=== PATIENT | male | born 1940 | race Caucasian/White ===

== ENCOUNTER 2016-12-01 09:26 | Emergency (ER) | payer MEDICARE, OTHER ==
--- NOTE | 2016-12-01 10:02 | ERPHSYRPT ---
- History of Present Illness Time Seen by Provider: 12/01/16 09:53 Source: patient Exam Limitations: no limitations Patient Subjective Stated Complaint: cough Triage Nursing Assessment: cough for days. finished zpak yesterday and went to dr for the second time yesterday and 'got a shot and switched to levaquin' hasnt taken levaquin today or done neb today. nonproductive cough. fever at home (but doesnt know what). lungs diminished. barky tight cough noted. white nasal drainage Physician History: This is a 75-year-old white male he arrives with complaint of continuing cough and really not short of breath with fevers at home however he doesn't know how high his fevers and began he states that he has been to his family doctor in finished a Z-[place] yesterday he was given an injection yesterday eyes family doctor he had an x-ray of his chest yesterday and 4 days ago which showed chronic eventration of the right hemidiaphragm with some atelectasis versus infiltrate surrounding it. He states that he feels like he is sweating today he has no chest pain he is not short of breath at this time. Patient does state that he was switched to Levaquin yesterday by his family doctor he states he has not begun this medication yet. Patient further states that he has a nebulizer at home he has been using this. Past medical history includes diabetes, hypercholesterolemia, high blood pressure. Past surgical history includes cholecystectomy hemorrhoidectomy, hernia repair, prostate surgery, tumors removed from his back Timing/Duration: day(s) (5 days) Severity: moderate Modifying Factors: Improves With: nothing Associated Symptoms: cough, fever, No nausea, No vomiting, No abdominal pain, No shortness of breath, No heartburn, No diaphoresis, No chills, No chest pain, No headaches, No loss of appetite, No malaise, No rash, No syncope, No seizure, No weakness Allergies/Adverse Reactions: No Known Drug Allergies Allergy (Unverified 12/01/16 09:45) Home Medications: Fenofibrate 160 mg PO DAILY 12/01/16 [History] Finasteride 5 mg [Proscar 5 MG] 5 mg PO DAILY 12/01/16 [History] Levofloxacin [Levaquin] 500 mg PO DAILY 12/01/16 [History] Lisinopril 5 mg [Zestril 5 MG] 5 mg PO DAILY 12/01/16 [History] Metformin HCl 500 mg [Glucophage 500 MG] 500 mg PO BID 12/01/16 [History] Nebivolol HCl [Bystolic] 5 mg PO DAILY 12/01/16 [History] Aldie-3 Fatty Acids/Fish Oil [Fish Oil 1,000 mg Softgel] 1 each PO DAILY [History] Hx Tetanus, Diphtheria Vaccination/Date Given: Yes Hx Influenza Vaccination/Date Given: Yes Hx Pneumococcal Vaccination/Date Given: Yes Immunizations Up to Date: Yes - Review of Systems Constitutional: Fever, No Chills, No Fatigue, No Lethargy, No Malaise, No Night Sweats, No Weakness, No Weight Loss Eyes: No Symptoms Ears, Nose, & Throat: No Symptoms Respiratory: Cough, Other, No Cyanosis, No Dyspnea, No Dyspnea on Exertion (SINGH) , No Stridor, No Wheezing Cardiac: No Chest Pain, No Edema, No Syncope Abdominal/Gastrointestinal: No Abdominal Pain, No Nausea, No Vomiting, No Diarrhea Genitourinary Symptoms: No Dysuria Musculoskeletal: No Back Pain, No Neck Pain Skin: No Rash Neurological: No Dizziness, No Focal Weakness, No Sensory Changes Psychological: No Symptoms Endocrine: No Symptoms All Other Systems: Reviewed and Negative - Past Medical History Pertinent Past Medical History: Yes Cardiac History: High Cholesterol, Hypertension Endocrine Medical History: Diabetes Type I - Past Surgical History Past Surgical History: Yes Gastrointestinal: Cholecystectomy, Hemorrhoidectomy, Hernia Repair Male Surgical History: Prostate Surgery Other Surgical History: tumors removed from back - Social History Smoking Status: Never smoker Exposure to second hand smoke: No Drug Use: none Patient Lives Alone: No - Nursing Vital Signs Nursing Vital Signs: Initial Vital Signs Temperature 97.8 F Temperature Source Oral Pulse Rate 79 Respiratory Rate 18 Blood Pressure [] 152/93 Pain Intensity 0 - Physical Exam General Appearance: no apparent distress, alert Eye Exam: PERRL/EOMI, eyes nml inspection Ears, Nose, Throat Exam: normal ENT inspection, TMs normal, pharynx normal, moist mucous membranes Neck Exam: normal inspection, non-tender, supple, full range of motion Respiratory Exam: other (patient with a few faint scattered wheezes otherwise clear) Cardiovascular Exam: regular rate/rhythm, normal heart sounds, normal peripheral pulses Gastrointestinal/Abdomen Exam: soft, normal bowel sounds, No tenderness, No mass Back Exam: normal inspection, normal range of motion, No CVA tenderness, No vertebral tenderness Extremity Exam: normal inspection, normal range of motion, pelvis stable Neurologic Exam: alert, oriented x 3, cooperative, normal mood/affect, nml cerebellar function, nml station & gait, sensation nml, No motor deficits Skin Exam: normal color, warm, dry, No rash Lymphatic Exam: No adenopathy SpO2 Interpretation: normal (96%) SpO2: 96 Oxygen Delivery: Room Air - Course Nursing assessment & vital signs reviewed: Yes EKG Interpreted by Me: RATE (72 bpm), Sinus Rhythm, NORMAL AXIS, Other (EKG, sinus rhythm, 72 beats per minute, RSR prime in leads 3 and aVF, normal axis, no acute ST or T wave changes noted, no old EKG for comparison) - Radiology Exams Chest X-ray Interpretation: Discussed w/ radiologist (chest x-ray: Portable chest unchanged again, hyperinflated with focal eventration of the right hemidiaphragm and adjacent atelectasis. Remaining lungs clear heart is not enlarged. No new/acute findings.) Ordered Tests: Active Orders 24 hr Category Date Time Status EKG-ER Only STAT Care 12/01/16 09:57 Active IV Insertion STAT Care 12/01/16 09:57 Active CHEST 1 VIEW (PORTABLE) Stat Exams 12/01/16 09:57 Completed CBC W DIFF Stat Lab 12/01/16 10:15 Completed CMP Stat Lab 12/01/16 10:15 Completed Manual Differential NC Stat Lab 12/01/16 10:15 Completed NT PRO BNP Stat Lab 12/01/16 10:15 Completed TROPONIN Stat Lab 12/01/16 10:15 Completed Respiratory Nebulizer STAT RT 12/01/16 11:05 Active Medication Summary Generic Name Dose Route Start Last Admin Trade Name Freq PRN Reason Stop Dose Admin Ceftriaxone Sodium/Dextrose 50 mls @ 100 mls/hr 12/01/16 11:05 Rocephin 1 Gm-D5w 50 Ml Bag IV 12/01/16 11:34 STAT ONE Discontinued Medications Generic Name Dose Route Start Last Admin Trade Name Freq PRN Reason Stop Dose Admin Albuterol/Ipratropium 3 ml 12/01/16 11:04 Duoneb 0.5-3 Mg/3 Ml Neb IH 12/01/16 11:05 STAT ONE Methylprednisolone Sodium Succinate 125 mg 12/01/16 11:04 Solu-Medrol 125 Mg IV 12/01/16 11:05 STAT ONE Lab/Rad Data: Laboratory Result Diagrams 12/01/16 10:15 12/01/16 10:15 Laboratory Results 12/01/16 12/01/16 Range/Units 10:15 10:15 WBC 7.7 (4.0-10.5) K/mm3 RBC 4.37 (4.1-5.6) M/mm3 Hgb 12.6 (12.5-18.0) gm/dl Hct 39.6 L (42-50) % MCV 90.6 (78-100) fl MCH 28.8 (26-32) pg MCHC 31.8 L (32-36) g/dl RDW 14.2 H (11.5-14.0) % Plt Count 223 (150-450) K/mm3 MPV 8.7 (6-9.5) fl Segmented Neutrophils 65 (36.-66.) % Lymphocytes (Manual) 22 L (24-44) % Monocytes (Manual) 11 (0.0-12.0) % Basophils (Manual) 1 (0.0-1.0) % Nucleated RBCs 2 % Differential Comment ABNORMAL Atypical Lymphocytes 1 % Platelet Estimate NORMAL (NORMAL) Basophilic Stippling RARE Anisocytosis 1+ Sodium 145 (136-145) mEq/L Potassium 4.0 (3.5-5.1) mEq/L Chloride 104 (98-107) mEq/L Carbon Dioxide 31.3 (21-32) mEq/L Anion Gap 13.6 (5-15) MEQ/L BUN 27 H (9-20) mg/dL Creatinine 0.92 (0.55-1.30) mg/dl Estimated GFR > 60 ML/MIN Glucose 136 H (70-110) MG/DL Calcium 9.8 (8.5-10.1) mg/dL Total Bilirubin 0.2 (0.2-1.0) mg/dL AST 17 (15-37) U/L ALT 27 (12-78) U/L Alkaline Phosphatase 39 L (46-116) U/L Troponin I 0.017 (0.000-0.056) ng/ml NT-Pro-B Natriuret Pep 469 H (0-450) pg/ml Serum Total Protein 7.0 (6.4-8.2) gm/dL Albumin 3.2 L (3.4-5.0) g/dL - Progress Progress: improved Progress Note: 12/01/16 11:06 Patient appears to be stable. Chest x-ray no acute changes he has hyperinflation with focal eventration of the right hemidiaphragm and adjacent atelectasis which is unchanged EKG no acute changes troponin normal BNP slightly elevated at 469 remainder of labs essentially normal. Will give patient a DuoNeb treatment give him Rocephin 1 g IV Solu-Medrol 125 IV. Anticipate discharge with continued nebulizer treatments, patient to take his Levaquin as prescribed by his family doctor and consider tapering dose of prednisone. - Departure Time of Disposition: 11:19 Departure Disposition: Home Clinical Impression: Bronchitis with bronchospasm Condition: Fair Critical Care Time: No Additional Instructions: Return home. Take Levaquin as prescribed by your family doctor. Use your albuterol inhaler as directed by your family doctor. Prednisone 20 mg 2 orally daily for 3 days then one orally daily for 4 days. Follow-up with your family doctor return for acute distress or for severe symptoms
[2016-12-01 10:21] LABS: Mean Cell Volume 90.6 fl (78-100); Mean Corpuscular Hemoglobin 28.8 pg (26-32); Mean Platelet Volume 8.7 fl (6-9.5); Platelet Count 223 K/mm3 (150-450); Red Blood Count 4.37 M/mm3 (4.1-5.6); Red Cell Distribution Width 14.2 % (11.5-14.0); White Blood Count 7.7 K/mm3 (4.0-10.5)
--- NOTE | 2016-12-01 10:29 | XRAY ---
Indication: Cough. Comparison: November 27 and November 30, 2016. Portable chest unchanged again hyperinflated with focal eventration of the right hemidiaphragm and adjacent atelectasis. Remaining lungs clear. Heart is not enlarged. No new/acute findings.
[2016-12-01 10:51] LABS: ANISOCYTOSIS 1+; ATYPICAL LYMPHS 1 %; Basophil 1 % (0.0-1.0); Nucleated Red Blood Cell 2 %; Platelet Estimate NORMAL (NORMAL); Total Cells Counted 100
[2016-12-01 10:52] LABS: Basophilic Stippling RARE
[2016-12-01 10:57] LABS: ALBUMIN 3.2 g/dL (3.4-5.0); ALKALINE PHOSPHATASE 39 U/L (46-116); ANION GAP 13.6 MEQ/L (5-15); BILIRUBIN,TOTAL 0.2 mg/dL (0.2-1.0); BLOOD UREA NITROGEN 27 mg/dL (9-20); CHLORIDE 104 mEq/L (98-107); Carbon Dioxide 31.3 mEq/L (21-32); Glucose 136 MG/DL (70-110); SGOT/AST 17 U/L (15-37); SGPT/ALT 27 U/L (12-78); SODIUM 145 mEq/L (136-145); TROPONIN 0.017 ng/ml (0.000-0.056)
[2016-12-01] MEDS ORDERED: DUONEB 0.5-3 MG/3 ml Neb IH ONE ×2 (11:04→11:30)
[2016-12-01] MEDS ORDERED: solu-MEDROL 125 MG IV ONE (11:04)
[2016-12-01] MEDS ORDERED: ROCEPHIN 1 Gm-D5w 50 ml Bag** 50 ML IV ONE ×2 (11:05→11:18)
[2016-12-01] MEDS ORDERED: solu-MEDROL 125 MG ONE (11:18)
[2016-12-01 11:50] VITALS: BP 137/70; PULSE 79; O2SAT 99
== END 2016-12-01 11:49 | disposition home or self-care (01) ==
LOC: ED 09:26
DX: J20.9 Acute bronchitis, unspecified (principal); R05 Cough; E11.9 Type 2 diabetes mellitus without complications; E78.00 Pure hypercholesterolemia, unspecified; I10 Essential (primary) hypertension; Z79.84 Long term (current) use of oral hypoglycemic drugs; Z79.899 Other long term (current) drug therapy
CPT/HCPCS: 36000; 36415; 71010; 80053; 83880; 84484; 85025; 93005; 94640; 96365; 96374; 99284; J0696; J2930; A9270-GY

== ENCOUNTER 2017-01-23 07:32 | Day surgery (SDC) | payer MEDICARE, OTHER ==
[2017-01-23] MEDS ORDERED: Lactated Ringers 1,000 ML IV ONE ×2 (07:57→11:05)
[2017-01-23] MEDS ORDERED: DIPRIVAN 200 MG/20 ML IV ONE (09:00)
[2017-01-23] MEDS ORDERED: LIDOCAINE HCL 1% AMPUL 5 ML IJ ONE (09:30)
[2017-01-23] MEDS ORDERED: Epinephrine Preservative Free 1 MG/ML INTRAOP ONE (09:30)
[2017-01-23] MEDS ORDERED: BETADINE 5% OPHTHALMIC 30 ML OP ONE (09:30)
[2017-01-23] MEDS ORDERED: BSS 500 ML, Fortaz/Tazicef 1 GM** 0.2 G IO ONE ×2 (09:30)
[2017-01-23] MEDS ORDERED: MANNITOL IV ONE ×2 (10:00→10:15)
[2017-01-23] MEDS ORDERED: BROMFENAC SODIUM 0.09% OP ONE (10:15)
[2017-01-23] MEDS ORDERED: GATIFLOXACIN 0.5% OP ONE (10:15)
[2017-01-23] MEDS ORDERED: PRED-FORTE 1% OPHTHALMIC OP ONE (10:15)
[2017-01-23] MEDS ORDERED: PILOCARPINE 2% OP ONE (10:15)
[2017-01-23] MEDS ORDERED: Lactated Ringers 1,000 ML IV SCH (11:00)
[2017-01-23] MEDS ORDERED: Zofran 4 MG/2 ML VIAL IV PRN (11:00)
[2017-01-23] MEDS ORDERED: ACETAZOLAMIDE 250 MG TABLET PO ONE (11:00)
[2017-01-23] MEDS ORDERED: TETRACAINE 0.5% STERI-UNIT SOL OP ONE ×2 (11:00)
[2017-01-23] MEDS ORDERED: Ak-Dilate OPHTHALMIC*** 0.71 ML, Cyclogyl 1% OPHTH SOL 5 ML 0.71 ML, GATIFLOXACIN 0.5% ... OP ONE ×4 (11:00)
[2017-01-23] MEDS ORDERED: DEMEROL 50 MG IM ONE (12:30)
[2017-01-23] MEDS ORDERED: DEMEROL 50 MG ONE (12:31)
[2017-01-23] MEDS ORDERED: TRIMOXI 0.6 ML OPHTH INJECTION OP ONE (13:45)
[2017-01-23] MEDS ORDERED: Bystolic 5 MG PO ONE (14:30)
[2017-01-23] MEDS ORDERED: Zestril 5 MG PO ONE (14:30)
[2017-01-23 15:54] VITALS: BP 161/87; PULSE 88; O2SAT 94
[2017-01-24] MEDS ORDERED: DIAMOX 500 MG INJ IJ SCH (13:00)
--- NOTE | 2017-01-24 14:23 | OP ---
DATE/TIME OF OPERATION: 01/23/2017 1010 TIME DICTATED: 1333 PREOPERATIVE DIAGNOSIS: Senile cataract of right eye. POSTOPERATIVE DIAGNOSIS: Senile cataract of right eye. SURGEON: Camelia Mir MD RECORDS MANAGEMENT DIRECTOR: None. OPERATION: Cataract extraction of right eye with an intraocular lens implant. STANDARD COMPLEX __X____ ANESTHESIA: MAC. ___X___ Monitored anesthesia care in combination with topical and intra-cameral anesthesia (because of the established specific risk of reflux, arrhythmias, or an anxiety attack associated with ocular manipulation as well as difficulty of the machine maintenance supervisor to manage such potentially catastrophic events while simultaneously attempting to complete the surgical procedure, it was deemed necessary for the patient's safety to have an anesthesiologist or a nurse skiing instructor present during the procedure whenever possible. The anesthesiologist or the nurse skiing instructor was utilized to monitor and regulate the intravenous sedation of the patient, so the patient was cooperative, relaxed, and comfortable). Topical anesthesia using Tetracaine eye drops together with intra cameral anesthesia using Lidocaine 1% MPF. The nurse was utilized to monitor the patient. ANESTHESIA PROVIDER: Bhargav Alford CRNA. COMPLICATIONS: None. BLOOD LOSS: None. INDICATIONS: The patient is undergoing cataract surgery in the hopes of eliminating the visual complaints and difficulty. PROCEDURE: After arriving at the facility's outpatient surgery area, an IV was started; the patient was given 5 mg of p.o. Versed. (If an anesthesia provider was not monitoring the patient) The patient was then given topical anesthetic Tetracaine eye drops. A cotton pellet was soaked into a solution of a combination of Zymaxid 0.5%, [place]-Synephrine 2.5% and Ocufen (other drops might have been substituted referenced in the patient's record). The pellet was inserted by the RN into the lower conjunctival cul-de-sac with a sterile forceps and left for 20 minutes. The pellet was then removed by the RN with a sterile forceps before taking the patient to the operating room. The preoperative area nurse identified the patient and marked the correct eye to be operated on. I identified the correct eye to be operated on and marked it appropriately in the outpatient surgery area. The patient was then taken into the operating room. Tetracaine eye drops were installed again in the correct eye. The eyelids and the lashes and the lid margins were scrubbed with Betadine solution. One drop of the diluted Betadine solution was placed in the conjunctival cul-de-sac for 45 seconds and then was irrigated. A drop of Tetracaine Gel was placed in the conjunctival cul-de-sac. The patient's forehead was taped to secure it during the procedure. The patient was monitored. The patient was then draped in the usual way for this procedure. An eye speculum was used to separate the eyelids. The eye was then fixated and a temporal 2.5 mm incision was made in the clear cornea temporally at the limbus. Through the incision, 0.25 cc of 1% non-preserved lidocaine was injected into the anterior chamber for intracameral anesthesia. The anterior chamber was then filled with viscoelastic. __X___ The pupil was small. I felt that it would be safer to mechanically dilate the pupil. A Malyugin ring was used at this point which dilated the pupil. That was removed at the end of the procedure prior to aspiration of the viscoelastic from the anterior chamber and posterior to the intraocular lens implant. The cataract had a great amount of cortical changes. That rendered seeing the anterior capsule difficult for a safe performance of an anterior capsulotomy. I injected an air bubble into the anterior chamber. I then injected 1 ML of vision blue solution into the anterior chamber. The vision blue solution was irrigated from the anterior chamber after 30 seconds. The anterior capsule was stained which facilitated performing the anterior capsulotomy safely. After that was completed, a cystotome was introduced into the anterior chamber and a round anterior capsulotomy was performed. The capsule was removed by a forceps. Hydrodissection was next carried utilizing a 25-gauge cannula and balanced salt solution to delineate the cortical material from the capsule and the nucleus from the cortical material. The nucleus was rotated freely into the capsular bag with no difficulty. The phaco tip of the [employer] Phacoemulsifier was introduced into the anterior chamber and two grooves were made into the nucleus 90 degrees apart. Using two spatulas resulted into the nucleus being fractured into four quadrants. The phaco tip was then used to remove each quadrant of the nucleus. Viscoelastic was used during this process to protect the corneal endothelium. Once the entire nucleus was removed, the phaco tip then was removed and the irrigation tip was introduced into the eye and the cortex was removed. The posterior capsule was polished. It was noticed that there was a tear into the posterior capsule with few vitreous strands into the pupil plan. An anterior vitrectomy was performed. A 21.50 diopter, [id number], posterior chamber lens implant, was inspected and found to be grossly normal. The implant was inserted into the implant injector cartridge; Viscoelastic again was introduced into the anterior chamber, which filled the capsular bag. The implant injector's cartridge tip was placed at the limbal wound and the posterior chamber implant was released into the capsular bag and rotated appropriately. The implant was found to be into the capsular bag and it was centered. ___X__ 0.2 ml of Tri-Moxi was introduced via 27 gauge cannula into the vitreous cavity through the ciliary processes. Viscoelastic was aspirated from the anterior chamber and posterior to the intraocular lens implant from the capsular bag using the irrigating tip. The anterior chamber was irrigated and filled with 5 cc antibiotic solution (500 cc of BSS plus 2 ml of Fortaz 100 mg/ml) ( if patient was not allergic to the medication). The lips of the corneal incision were hydrated using BSS solution. The anterior chamber was checked and found to be water tight. __X___ One drop each of antibiotic, steroid and NSAID drops (refer to chart for drops used) were placed in the conjunctival cul-de-sac of the operated eye. Patient tolerated the procedure quite well and left the operating room in satisfactory condition. DISCHARGE SUMMARY: The patient was released in stable condition. The patient and those with the patient were given an instruction sheet as of how to care for the eye after surgery as well as counseling on any abnormal laboratory studies by the postoperative RN. The patient was also given an appointment card for follow-up in the office and is to call immediately for any difficulties including but not limited to pain in the eye, decreased vision, discharge from the eye, headache and or fever. NOTE: After inserting the intraocular lens implant and the Tri-Moxi the patient's intraocular pressure increased. There was slight collapse of the root of the iris with incision. I gave the patient 500 cc 20% Mannitol IV and waited about ten minutes. The intraocular pressure came down. The root of the iris was inserted nicely into the anterior chamber. The patient tolerated the procedure quite well. NOTE: The patient was monitored for three plus hours in the recovery area to make sure the pressure was stable and then he left the hospital. DISCHARGE DIAGNOSIS: Pseudophakia of right eye.
== END 2017-01-23 15:30 | disposition home or self-care (01) ==
LOC: SDC 07:32
PROVIDERS: ATTEND Ophthalmology
PROC: 08RJ3JZ Replacement of Right Lens with Synthetic Substitute, Percutaneous Approach (ICD-10-PCS; principal; 2017-01-23)
PROC: 08B43ZZ Excision of Right Vitreous, Percutaneous Approach (ICD-10-PCS; 2017-01-23)
DX: H25.9 Unspecified age-related cataract (principal); I10 Essential (primary) hypertension; E11.9 Type 2 diabetes mellitus without complications; R60.9 Edema, unspecified; Z79.4 Long term (current) use of insulin; Z79.899 Other long term (current) drug therapy
CPT/HCPCS: 82962; 66982; 67005; C1780; 00142; 99100; J0171; J1120; J2175; J2704; A9270-GY

== ENCOUNTER 2017-02-27 07:30 | Day surgery (SDC) | payer MEDICARE, OTHER ==
[2017-02-27] MEDS ORDERED: DIPRIVAN 200 MG/20 ML IV ONE (08:00)
[2017-02-27] MEDS ORDERED: Versed 2 MG/2 ML Injection IV ONE (08:00)
[2017-02-27] MEDS ORDERED: TETRACAINE 0.5% STERI-UNIT SOL OP ONE ×2 (08:00)
[2017-02-27] MEDS ORDERED: Lactated Ringers 1,000 ML IV SCH ×2 (08:00)
[2017-02-27] MEDS ORDERED: Ak-Dilate OPHTHALMIC*** 0.71 ML, Cyclogyl 1% OPHTH SOL 5 ML 0.71 ML, GATIFLOXACIN 0.5% ... OP ONE ×4 (08:00)
[2017-02-27] MEDS ORDERED: ACETAZOLAMIDE 250 MG TABLET PO ONE (09:00)
[2017-02-27] MEDS ORDERED: LIDOCAINE HCL 1% AMPUL 5 ML IJ ONE (09:00)
[2017-02-27] MEDS ORDERED: BETADINE 5% OPHTHALMIC 30 ML OP ONE (09:00)
[2017-02-27] MEDS ORDERED: Epinephrine Preservative Free 1 MG/ML INTRAOP ONE (09:00)
[2017-02-27] MEDS ORDERED: Zofran 4 MG/2 ML VIAL IV PRN (09:00)
[2017-02-27] MEDS ORDERED: BSS 500 ML, Fortaz/Tazicef 1 GM** 0.2 G IO ONE ×2 (09:00)
[2017-02-27 13:31] VITALS: BP 144/77; PULSE 67; O2SAT 96
--- NOTE | 2017-02-27 13:38 | OP ---
DATE/TIME OF OPERATION: 02/27/2017 0858 TIME DICTATED: 1221 PREOPERATIVE DIAGNOSIS: Senile cataract of right eye. POSTOPERATIVE DIAGNOSIS: Senile cataract of right eye. SURGEON: Camelia Mir MD SEAT COVER MAKER: None. OPERATION: Cataract extraction of right eye with an intraocular lens implant. STANDARD COMPLEX ___X___ ANESTHESIA: MAC. ___X___ Monitored anesthesia care in combination with topical and intra-cameral anesthesia (because of the established specific risk of reflux, arrhythmias, or an anxiety attack associated with ocular manipulation as well as difficulty of the farm equipment operator to manage such potentially catastrophic events while simultaneously attempting to complete the surgical procedure, it was deemed necessary for the patient's safety to have an anesthesiologist or a nurse rolled seat trimmer present during the procedure whenever possible. The anesthesiologist or the nurse rolled seat trimmer was utilized to monitor and regulate the intravenous sedation of the patient, so the patient was cooperative, relaxed, and comfortable). Topical anesthesia using Tetracaine eye drops together with intra cameral anesthesia using Lidocaine 1% MPF. The nurse was utilized to monitor the patient. ANESTHESIA PROVIDER: Bhargav Alford CRNA. COMPLICATIONS: None. BLOOD LOSS: None. INDICATIONS: The patient is undergoing cataract surgery in the hopes of eliminating the visual complaints and difficulty. PROCEDURE: After arriving at the facility's outpatient surgery area, an IV was started; the patient was given 5 mg of p.o. Versed. (If an anesthesia provider was not monitoring the patient) The patient was then given topical anesthetic Tetracaine eye drops. A cotton pellet was soaked into a solution of a combination of Zymaxid 0.5%, [place]-Synephrine 2.5% and Ocufen (other drops might have been substituted referenced in the patient's record). The pellet was inserted by the RN into the lower conjunctival cul-de-sac with a sterile forceps and left for 20 minutes. The pellet was then removed by the RN with a sterile forceps before taking the patient to the operating room. The preoperative area nurse identified the patient and marked the correct eye to be operated on. I identified the correct eye to be operated on and marked it appropriately in the outpatient surgery area. The patient was then taken into the operating room. Tetracaine eye drops were installed again in the correct eye. The eyelids and the lashes and the lid margins were scrubbed with Betadine solution. One drop of the diluted Betadine solution was placed in the conjunctival cul-de-sac for 45 seconds and then was irrigated. A drop of Tetracaine Gel was placed in the conjunctival cul-de-sac. The patient's forehead was taped to secure it during the procedure. The patient was monitored. The patient was then draped in the usual way for this procedure. An eye speculum was used to separate the eyelids. The eye was then fixated and a temporal 2.5 mm incision was made in the clear cornea temporally at the limbus. Through the incision, 0.25 cc of 1% non-preserved lidocaine was injected into the anterior chamber for intracameral anesthesia. The anterior chamber was then filled with viscoelastic. __X___ The pupil was small. I felt that it would be safer to mechanically dilate the pupil. A Malyugin ring was used at this point which dilated the pupil. That was removed at the end of the procedure prior to aspiration of the viscoelastic from the anterior chamber and posterior to the intraocular lens implant. The cataract had a great amount of cortical changes. That rendered seeing the anterior capsule difficult for a safe performance of an anterior capsulotomy. I injected an air bubble into the anterior chamber. I then injected 1 ML of vision blue solution into the anterior chamber. The vision blue solution was irrigated from the anterior chamber after 30 seconds. The anterior capsule was stained which facilitated performing the anterior capsulotomy safely. After that was completed, a cystotome was introduced into the anterior chamber and a round anterior capsulotomy was performed. The capsule was removed by a forceps. Hydrodissection was next carried utilizing a 25-gauge cannula and balanced salt solution to delineate the cortical material from the capsule and the nucleus from the cortical material. The nucleus was rotated freely into the capsular bag with no difficulty. The phaco tip of the [employer] Phacoemulsifier was introduced into the anterior chamber and two grooves were made into the nucleus 90 degrees apart. Using two spatulas resulted into the nucleus being fractured into four quadrants. The phaco tip was then used to remove each quadrant of the nucleus. Viscoelastic was used during this process to protect the corneal endothelium. Once the entire nucleus was removed, the phaco tip then was removed and the irrigation tip was introduced into the eye and the cortex was removed. The posterior capsule was polished. It was noticed that there was a tear into the posterior capsule with few vitreous strands into the pupil plan. An anterior vitrectomy was performed. A 21.00 diopter, SN60WF, posterior chamber lens implant, was inspected and found to be grossly normal. The implant was inserted into the implant injector cartridge; Viscoelastic again was introduced into the anterior chamber, which filled the capsular bag. The implant injector's cartridge tip was placed at the limbal wound and the posterior chamber implant was released into the capsular bag and rotated appropriately. The implant was found to be into the capsular bag and it was centered. 0.2 ml of Tri-Moxi was introduced via 27 gauge cannula into the vitreous cavity through the ciliary processes. Viscoelastic was aspirated from the anterior chamber and posterior to the intraocular lens implant from the capsular bag using the irrigating tip. The anterior chamber was irrigated and filled with 5 cc antibiotic solution (500 cc of BSS plus 2 ml of Fortaz 100 mg/ml) ( if patient was not allergic to the medication). The lips of the corneal incision were hydrated using BSS solution. The anterior chamber was checked and found to be water tight. ___X___ One drop each of antibiotic, steroid and NSAID drops (refer to chart for drops used) were placed in the conjunctival cul-de-sac of the operated eye. Patient tolerated the procedure quite well and left the operating room in satisfactory condition. DISCHARGE SUMMARY: The patient was released in stable condition. The patient and those with the patient were given an instruction sheet as of how to care for the eye after surgery as well as counseling on any abnormal laboratory studies by the postoperative RN. The patient was also given an appointment card for follow-up in the office and is to call immediately for any difficulties including but not limited to pain in the eye, decreased vision, discharge from the eye, headache and or fever. DISCHARGE DIAGNOSIS: Pseudophakia of right eye.
== END 2017-02-27 10:35 | disposition home or self-care (01) ==
LOC: SDC 07:30
PROVIDERS: ATTEND Ophthalmology
PROC: 08RJ3JZ Replacement of Right Lens with Synthetic Substitute, Percutaneous Approach (ICD-10-PCS; principal; 2017-02-27)
PROC: 08B43ZZ Excision of Right Vitreous, Percutaneous Approach (ICD-10-PCS; 2017-02-27)
DX: H25.9 Unspecified age-related cataract (principal)
CPT/HCPCS: 66982; 67005; C1780; 00142; 99100; J0171; J2250; J2704; A9270-GY

== ENCOUNTER 2018-01-01 06:00 | Day surgery (SDC) | payer MEDICARE, OTHER ==
[2018-01-01] MEDS ORDERED: Ketamine HCl 50 MG/ML IV ONE (06:01)
[2018-01-01] MEDS ORDERED: DIPRIVAN 200 MG/20 ML IV ONE (06:01)
[2018-01-01] MEDS ORDERED: Lactated Ringers 1,000 ML IV SCH (06:30)
[2018-01-01 08:39] VITALS: PULSE 70
[2018-01-01 09:46] VITALS: BP 154/82; O2SAT 93
--- NOTE | 2018-01-01 09:53 | OP ---
SURGERY DATE/TIME: 01/01/2018 0723 PREOPERATIVE DIAGNOSIS: Screening exam. POSTOPERATIVE DIAGNOSIS: Sigmoid diverticulosis otherwise normal colon. PROCEDURE: Colonoscopy. SURGEON: Dr. Hankins. ANESTHESIA: MAC. Medications given by anesthesia department. HISTORY: The patient is a 77 year-old white male presenting now for screening evaluation. He was appraised of the risks of the procedure including the risk of perforation, phlebitis, untoward reaction to medication, bleeding and missed lesions. The patient verbalized his understanding and desired to have the procedure performed. DESCRIPTION OF PROCEDURE: The patient was given the medications by the anesthesia department. He had continuous pulse oximetry, ECG monitoring, intermittent blood pressure monitoring and tidal CO2 monitoring during the examination. He was placed in the left lateral decubitus position. A digital rectal examination revealed somewhat reduced anal sphincter tone and a small firm prostate. The flexible Olympus pediatric colonoscope was used to intubate the rectum. A view of the colon was developed sequentially to the cecum. Upon insertion and withdrawal, including a retroflex view in the rectum was noted sigmoid diverticula but no other mucosal lesions were encountered. The scope was removed from the patient who tolerated the procedure well and was sent back to OP recovery in good condition. The prep was noted to be fair.
== END 2018-01-01 09:00 | disposition home or self-care (01) ==
LOC: SDC 06:00
PROVIDERS: ATTEND Family Medicine
PROC: 0DJD8ZZ Inspection of Lower Intestinal Tract, Via Natural or Artificial Opening Endoscopic (ICD-10-PCS; principal; 2018-01-01)
DX: Z12.11 Encounter for screening for malignant neoplasm of colon (principal); K57.30 Diverticulosis of large intestine without perforation or abscess without bleeding; I10 Essential (primary) hypertension; Z79.4 Long term (current) use of insulin
CPT/HCPCS: 82962; 99100; J2704

== ENCOUNTER 2018-04-06 09:07 | Observation (INO) | payer MEDICARE, OTHER ==
--- NOTE | 2018-04-06 09:32 | ERPHSYRPT ---
- History of Present Illness Time Seen by Provider: 04/06/18 09:28 Source: patient Exam Limitations: no limitations Physician History: The patient is a 77-year-old male with his complaining of worsening dizziness for the past 3 weeks. Last night about 10 PM he fell onto his right knee and right rib. He states his slippers got stuck to the floor. At 2:30 last night he got up to use the bathroom and was very "dizzy and wobbly". He states he could not walk straight and kept moving to the left. This morning he is unable to walk straight. He is having to use his cane. He complains of a headache as well. He was given meclizine by his local doctor. He took meclizine before bedtime last night and again this morning. His past medical history is significant for diabetes, BPH, high cholesterol, hypertension, and edema. Occurred: yesterday Reason for Fall: tripped, fell from standing pos Injuries/Pain Location: chest (right ribs), lower extremity (right knee) Loss of Consciousness: no loss of consciousness Quality: aching Severity of Pain-Max: moderate Severity of Pain-Current: moderate Modifying Factors: Improves With: nothing Associated Symptoms (Fall): chest pain (rib pain), headache, trouble walking Allergies/Adverse Reactions: No Known Drug Allergies Allergy (Verified 04/06/18 09:35) Home Medications: Fenofibrate 160 mg PO DAILY 12/01/16 [History] Finasteride 5 mg [Proscar 5 MG] 5 mg PO DAILY 12/01/16 [History] Metformin HCl 500 mg [Glucophage 500 MG] 500 mg PO BID 12/01/16 [History] Nebivolol HCl [Bystolic] 5 mg PO DAILY 12/01/16 [History] [place]-3 Fatty Acids/Fish Oil [Fish Oil 1,000 mg Softgel] 2 each PO DAILY [History] Albuterol Sulfate [Proair Hfa] 8.5 gm IH Q6HPRN PRN 12/27/17 [History] Amlodipine Besylate [Norvasc] 2.5 mg PO DAILY 12/27/17 [History] Furosemide [Lasix] 20 mg PO DAILY 12/27/17 [History] Potassium Chloride [Klor-Con 8] 8 meq PO DAILY 12/27/17 [History] Hx Tetanus, Diphtheria Vaccination/Date Given: Yes Hx Influenza Vaccination/Date Given: Yes Hx Pneumococcal Vaccination/Date Given: Yes - Review of Systems Constitutional: No Fever, No Chills Eyes: No Symptoms Ears, Nose, & Throat: No Symptoms Respiratory: No Cough, No Dyspnea Cardiac: No Chest Pain, No Edema, No Syncope Abdominal/Gastrointestinal: No Abdominal Pain, No Nausea, No Vomiting, No Diarrhea Genitourinary Symptoms: No Dysuria Musculoskeletal: Fall, Injury, Joint Pain (right knee) Skin: No Rash Neurological: Gait Changes Psychological: No Symptoms Endocrine: No Symptoms Hematologic/Lymphatic: No Symptoms Immunological/Allergic: No Symptoms All Other Systems: Reviewed and Negative - Past Medical History Pertinent Past Medical History: Yes Neurological History: No Pertinent History ENT History: Cataracts, Glaucoma Cardiac History: High Cholesterol, Hypertension Respiratory History: Sleep Apnea Endocrine Medical History: Diabetes Type I Musculoskeletal History: Arthritis GI Medical History: No Pertinent History History: Other Psycho-Social History: No Pertinent History Male Reproductive Disorders: Prostate Problems Other Medical History: hx of kidney stones, - Past Surgical History Past Surgical History: Yes Neuro Surgical History: No Pertinent History Cardiac: No Pertinent History Respiratory: No Pertinent History Gastrointestinal: Cholecystectomy, Hemorrhoidectomy, Hernia Repair Genitourinary: No Pertinent History Musculoskeletal: Other Male Surgical History: Prostate Surgery Other Surgical History: tumors removed from back, cataract/lens left eye january 2017 - Social History Smoking Status: Former smoker Exposure to second hand smoke: No Drug Use: none Patient Lives Alone: No - Nursing Vital Signs Nursing Vital Signs: Initial Vital Signs Temperature 97.9 F 04/06/18 09:21 Pulse Rate 85 04/06/18 09:21 Respiratory Rate 20 04/06/18 09:21 Blood Pressure 150/64 04/06/18 09:21 O2 Sat by Pulse Oximetry 94 L 04/06/18 09:21 Pain Scale Pain Intensity 5 - Simone Coma Score Best Eye Response (Simone): (4) open spontaneously Best Verbal Response ([place]): (5) oriented Best Motor Response (Simone): (6) obeys commands [place] Total: 15 - Physical Exam General Appearance: no apparent distress, alert Head Injury: no evidence of injury Eye Exam: PERRL/EOMI ENT Exam: airway nml Neck Exam: normal inspection, No tenderness Respiratory/Chest Exam: chest tenderness (right lateral ribs) Cardiovascular Exam: normal heart sounds, regular rate/rhythm Gastrointestinal Exam: soft, No tenderness, No distention, No guarding, No ecchymosis Rectal Exam: not done Back Exam: normal inspection, No vertebral tenderness Extremity Exam: evidence of injury (right knee), pain with movement (right knee) Neurologic Exam: alert, oriented x 3, cooperative, sensation nml, No motor deficits Skin Exam: ecchymosis (right knee) SpO2 Interpretation: normal - Course EKG Interpreted by Me: RATE, Sinus Rhythm, NORMAL AXIS, NORMAL INTERVALS - Radiology Exams Chest X-ray Interpretation: Interpreted by me, Negative (stable nonacute chest, comp 2V chest 12/24/17.) Right Ribs X-ray Interpretation: Interpreted by me, Negative, No Fracture, No Pneumothorax Right Knee X-ray Interpretation: Interpreted by me, Negative, No Fracture, No Subluxation - CT Exams Head CT Interpretation: Negative, Tele-radiologist Report (per Dr Torres), No/ Intracranial Hemorrhag Ordered Tests: Active Orders 24 hr Category Date Time Status IV Insertion STAT Care 04/06/18 09:32 Active CHEST 2 VIEWS (PA AND LAT) Stat Exams 04/06/18 09:33 Taken HEAD WITHOUT CONTRAST [CT] Stat Exams 04/06/18 09:33 Taken KNEE (3 VIEWS) Stat Exams 04/06/18 09:33 Taken RIBS UNILATERAL Stat Exams 04/06/18 09:33 Taken CBC W DIFF Stat Lab 04/06/18 09:15 Completed CMP Stat Lab 04/06/18 09:15 Completed CULTURE,URINE Stat Lab 04/06/18 10:00 Received LIPASE Stat Lab 04/06/18 09:15 Completed Lactic Acid Stat Lab 04/06/18 09:34 Ordered UA W/ MICROSCOPIC Stat Lab 04/06/18 10:00 Completed Lab/Rad Data: Laboratory Result Diagrams 04/06/18 09:15 04/06/18 09:15 Laboratory Results 04/06/18 04/06/18 04/06/18 Range/Units 10:00 09:15 09:15 WBC 5.5 (4.0-10.5) K/mm3 RBC 4.41 (4.1-5.6) M/mm3 Hgb 13.0 (12.5-18.0) gm/dl Hct 39.5 L (42-50) % MCV 89.6 (78-100) fl MCH 29.5 (26-32) pg MCHC 32.9 (32-36) g/dl RDW 13.9 (11.5-14.0) % Plt Count 199 (150-450) K/mm3 MPV 8.9 (6-9.5) fl Gran % 65.0 (36.0-66.0) % Eos # (Auto) 0.23 (0-0.5) Absolute Lymphs (auto) 1.07 (1.0-4.6) Absolute Monos (auto) 0.57 (0.0-1.3) Lymphocytes % 19.4 L (24.0-44.0) % Monocytes % 10.3 (0.0-12.0) % Eosinophils % 4.2 (0.00-5.0) % Basophils % 1.1 (0.0-0.4) % Absolute Granulocytes 3.58 (1.4-6.9) Basophils # 0.06 (0-0.4) Sodium 142 (137-145) mmol/L Potassium 4.0 (3.5-5.1) mmol/L Chloride 103 (98-107) mmol/L Carbon Dioxide 28 (22-30) mmol/L Anion Gap 15.2 H (5-15) MEQ/L BUN 21 H (9-20) mg/dL Creatinine 0.80 (0.66-1.25) mg/dL Estimated GFR > 60.0 ML/MIN Glucose 177 H (74-106) mg/dL Calcium 10.2 (8.4-10.2) mg/dL Total Bilirubin 0.30 (0.2-1.3) mg/dL AST 18 (17-59) U/L ALT 23 (0-50) U/L Alkaline Phosphatase 49 (38-126) U/L Serum Total Protein 6.7 (6.3-8.2) g/dL Albumin 4.1 (3.5-5.0) g/dL Lipase 34 (23-300) U/L Ur Collection Type CCMS Urine Color YELLOW (YELLOW) Urine Appearance CLEAR (CLEAR) Urine pH 5.0 (5-6) Ur Specific [place] 1.020 (1.005-1.025) Urine Protein TRACE (Negative) Urine Ketones NEGATIVE (NEGATIVE) Urine Blood 5-10 (0-5) [place]/ul Urine Nitrite NEGATIVE (NEGATIVE) Urine Bilirubin NEGATIVE (NEGATIVE) Urine Urobilinogen NORMAL (0-1) mg/dL Ur Leukocyte Esterase NEGATIVE (NEGATIVE) Urine Microscopic RBC 0-2 (0-2) /HPF Urine Microscopic WBC 0-2 (0-5) /HPF Ur Epithelial Cells RARE (FEW) /HPF Urine Bacteria RARE (NEGATIVE) /HPF Urine Culture Reflexed YES (NO) Urine Glucose NEGATIVE (NEGATIVE) mg/dL Specimen Received 1000 04/06/18 - Progress Progress: unchanged Progress Note: 04/06/18 11:17 Pt assisted by 2 nurses and was very unsteady on his feet. Discussed with : Cr Will see patient in: hospital (observation) Counseled pt/family regarding: lab results, diagnosis, rad results - Departure Time of Disposition: 11:24 Departure Disposition: Observation (per Dr Hankins) Clinical Impression: Fall, Weakness Condition: Stable Critical Care Time: No Referrals: SUE HANKINS [Primary Care Provider] -
[2018-04-06 09:41] LABS: BASOPHIL % 1.1 % (0.0-0.4); Basophil (Absolute #) 0.06 (0-0.4); Eosinophil % 4.2 % (0.00-5.0); Eosinophil (Absolute #) 0.23 (0-0.5); Granulocyte Absolute (ANC) 3.58 (1.4-6.9); Hematocrit 39.5 % (42-50); Lymphocyte (Absolute #) 1.07 (1.0-4.6); Lymphocytes % 19.4 % (24.0-44.0); Mean Cell Volume 89.6 fl (78-100); Mean Corpuscular Hemoglobin 29.5 pg (26-32); Mean Corpuscular Hgb Concent. 32.9 g/dl (32-36); Mean Platelet Volume 8.9 fl (6-9.5); Monocyte (Absolute #) 0.57 (0.0-1.3); Monocytes % 10.3 % (0.0-12.0); Platelet Count 199 K/mm3 (150-450); Red Blood Count 4.41 M/mm3 (4.1-5.6); Red Cell Distribution Width 13.9 % (11.5-14.0); White Blood Count 5.5 K/mm3 (4.0-10.5)
[2018-04-06 09:49] LABS: ALBUMIN 4.1 g/dL (3.5-5.0); ALKALINE PHOSPHATASE 49 U/L (38-126); ANION GAP 15.2 MEQ/L (5-15); BLOOD UREA NITROGEN 21 mg/dL (9-20); CHLORIDE 103 mmol/L (98-107); Calcium 10.2 mg/dL (8.4-10.2); Carbon Dioxide 28 mmol/L (22-30); Glucose 177 mg/dL (74-106); LIPASE 34 U/L (23-300); SGOT/AST 18 U/L (17-59); SODIUM 142 mmol/L (137-145); Total Protein 6.7 g/dL (6.3-8.2)
[2018-04-06 09:57] LABS: SGPT/ALT 23 U/L (0-50)
[2018-04-06 10:07] LABS: Appearance CLEAR (CLEAR); Leukocyte Esterase NEGATIVE (NEGATIVE); Nitrite NEGATIVE (NEGATIVE); Protein,Urine Dip TRACE (Negative)
[2018-04-06 10:08] LABS: Bilirubin NEGATIVE (NEGATIVE); Glucose NEGATIVE (NEGATIVE); Ketones NEGATIVE (NEGATIVE); Urobilinogen NORMAL mg/dL (0-1)
[2018-04-06 10:15] LABS: Bacteria RARE /HPF (NEGATIVE); Epithelial Cells RARE /HPF (FEW); RBC 0-2 /HPF (0-2); WBC 0-2 /HPF (0-5)
[2018-04-06 12:03] LABS: Lactic Acid 2.3 (0.4-2.0)
[2018-04-06] MEDS ORDERED: Zofran 4 MG/2 ML VIAL IV PRN (12:32)
[2018-04-06] MEDS: Sodium Chloride 0.9% 1000 ML 1,000 ML IV SCH (14:00)
[2018-04-06] MEDS ORDERED: Ventolin Hfa MDI IH PRN (15:20)
[2018-04-06] MEDS ORDERED: PROVENTIL COMMON CANISTER IH PRN (15:35)
[2018-04-06 16:16] LABS: TSH, 3RD Generation 1.26 mIU/L (0.47-4.68)
[2018-04-06] MEDS: Glucophage 500 MG PO SCH (17:03)
[2018-04-06] MEDS: ANTIVERT 25 MG PO PRN (20:56)
--- NOTE | 2018-04-06 21:19 | XRAY ---
Indication: Pain following fall. Multiple contiguous axial images obtained through the head without contrast. Comparison: None. Age-appropriate global atrophy and mild periventricular degenerative micro-ischemia. No acute intracranial hemorrhage, abnormal extra-axial fluid collection, or mass effect. Fourth ventricle is midline without hydrocephalus. Bony calvarium intact. Visualized paranasal sinuses and mastoid air cells are clear. Impression: Nonacute senile brain. Comment: Preliminary interpretation was made by [facility]. No discrepancy. CTDI 65.42
--- NOTE | 2018-04-06 21:27 | XRAY ---
Indication: Pain following fall. Comparison: None 2 views of the right ribs demonstrates osteopenia, mild multilevel degenerative spondylosis, mild/moderate right shoulder degenerative arthropathy, and cholecystectomy clips. No other bony, articular, or soft tissue abnormalities.
--- NOTE | 2018-04-06 21:29 | XRAY ---
Indication: Pain following fall. Comparison: December 24, 2017. PA/lateral chest again demonstrates focal eventration of the right hemidiaphragm and left base subsegmental atelectasis/scarring. Remaining heart and lungs unremarkable. Bony thorax intact again with mild osteopenia and degenerative changes. Impression: Stable nonacute chest with chronic features.
--- NOTE | 2018-04-06 21:29 | XRAY ---
Indication: Pain following fall. Comparison: None 3 views of the right knee demonstrates osteopenia, posterior fabella, and mild scattered vascular calcifications. No other bony, articular, or soft tissue abnormalities.
[2018-04-07 06:18] LABS: BASOPHIL % 0.6 % (0.0-0.4); Basophil (Absolute #) 0.04 (0-0.4); Eosinophil % 3.1 % (0.00-5.0); Granulocyte Absolute (ANC) 4.09 (1.4-6.9); Granulocytes % 63.5 % (36.0-66.0); Hemoglobin 12.9 gm/dl (12.5-18.0); Lymphocyte (Absolute #) 1.37 (1.0-4.6); Lymphocytes % 21.3 % (24.0-44.0); Mean Cell Volume 89.9 fl (78-100); Mean Corpuscular Hgb Concent. 32.3 g/dl (32-36); Monocyte (Absolute #) 0.74 (0.0-1.3); Monocytes % 11.5 % (0.0-12.0); Platelet Count 214 K/mm3 (150-450); Red Blood Count 4.45 M/mm3 (4.1-5.6); White Blood Count 6.4 K/mm3 (4.0-10.5)
[2018-04-07 06:27] LABS: ANION GAP 13.2 MEQ/L (5-15); BLOOD UREA NITROGEN 17 mg/dL (9-20); CHLORIDE 102 mmol/L (98-107); Carbon Dioxide 27 mmol/L (22-30); Creatinine 1 0.69 mg/dL (0.66-1.25); Glucose 140 mg/dL (74-106); SODIUM 138 mmol/L (137-145)
[2018-04-07] MEDS: Glucophage 500 MG PO SCH ×2 (07:52→17:24)
[2018-04-07] MEDS: FISH OIL 1,000 MG CAPSULE PO SCH (09:28)
[2018-04-07] MEDS: ENOXAPARIN SODIUM SQ SCH (09:28)
[2018-04-07] MEDS: Bystolic 5 MG PO SCH (09:28)
[2018-04-07] MEDS: NORVASC 5 MG PO SCH (09:28)
[2018-04-07] MEDS: Tricor 145 MG PO SCH (09:29)
[2018-04-07] MEDS: LASIX 20 MG PO SCH (09:29)
[2018-04-07] MEDS: Klor Con 10 MEQ PO SCH (09:29)
[2018-04-07] MEDS: Proscar 5 MG PO SCH (09:29)
[2018-04-07] MEDS: Sodium Chloride 0.9% 1000 ML 1,000 ML IV SCH ×3 (09:34→19:46)
[2018-04-07] MEDS ORDERED: FISH OIL PO SCH (10:00)
[2018-04-07] MEDS ORDERED: NON-FORMULARY ITEM (Amlodipine Besylate [Norvasc] 2.5 MG) PO SCH (10:00)
[2018-04-07] MEDS ORDERED: NON-FORMULARY ITEM (Potassium Chloride [Klor-Con 8] 8 MEQ) PO SCH (10:00)
[2018-04-07] MEDS ORDERED: OMEGA PO SCH (10:00)
[2018-04-07] MEDS ORDERED: NON-FORMULARY ITEM (Fenofibrate [Fenofibrate] 160 MG) PO SCH (10:00)
[2018-04-07] MEDS ORDERED: FATTY ACIDS PO SCH (10:00)
[2018-04-07] MEDS: ANTIVERT 25 MG PO PRN (19:51)
[2018-04-07] MEDS: TYLENOL 325 MG PO PRN (19:52)
[2018-04-08] MEDS: Sodium Chloride 0.9% 1000 ML 1,000 ML IV SCH ×2 (04:51→19:50)
[2018-04-08 05:50] LABS: ANION GAP 11.9 MEQ/L (5-15); BLOOD UREA NITROGEN 18 mg/dL (9-20); CHLORIDE 103 mmol/L (98-107); Calcium 9.9 mg/dL (8.4-10.2); Carbon Dioxide 29 mmol/L (22-30); Creatinine 1 0.75 mg/dL (0.66-1.25); Glucose 142 mg/dL (74-106); Potassium 4.1 mmol/L (3.5-5.1); SODIUM 140 mmol/L (137-145)
[2018-04-08 05:51] LABS: Hematocrit 39.5 % (42-50); Hemoglobin 12.8 gm/dl (12.5-18.0); Mean Cell Volume 89.6 fl (78-100); Mean Corpuscular Hgb Concent. 32.4 g/dl (32-36); Mean Platelet Volume 8.8 fl (6-9.5); Platelet Count 213 K/mm3 (150-450); Red Blood Count 4.41 M/mm3 (4.1-5.6); Red Cell Distribution Width 14.1 % (11.5-14.0); White Blood Count 5.7 K/mm3 (4.0-10.5)
[2018-04-08] MEDS: Glucophage 500 MG PO SCH ×2 (08:03→16:41)
[2018-04-08] MEDS: Bystolic 5 MG PO SCH (09:45)
[2018-04-08] MEDS: Proscar 5 MG PO SCH (09:45)
[2018-04-08] MEDS: Tricor 145 MG PO SCH (09:45)
[2018-04-08] MEDS: NORVASC 5 MG PO SCH (09:45)
[2018-04-08] MEDS: Klor Con 10 MEQ PO SCH (09:45)
[2018-04-08] MEDS: LASIX 20 MG PO SCH (09:45)
[2018-04-08] MEDS: FISH OIL 1,000 MG CAPSULE PO SCH (09:46)
[2018-04-08] MEDS: ENOXAPARIN SODIUM SQ SCH (09:46)
[2018-04-08] MEDS: TYLENOL 325 MG PO PRN (12:57)
--- NOTE | 2018-04-08 13:09 | HP ---
CHIEF COMPLAINT: Dizziness and falling. HISTORY OF PRESENT ILLNESS: The patient is a 77 year-old white male patient with chronic vertigo had been seen by Dr. Dodson years ago and had tilt-table testing and manipulation which did apparently help. He reports he had noted to have crystals in his inner ear. The patient has been having increasing problems with falling recently and apparently had fallen and hurt his knee and ribs. He is unable to stand up and take a couple of steps without tottering over. The patient was felt the need to have further evaluation and management and was placed in the hospital for such. PAST MEDICAL HISTORY: Significant for vertigo for which he is on Antivert four times daily. He has history of hyperlipidemia, diabetes mellitus type 2, chronic obstructive pulmonary disease. PAST SURGICAL HISTORY: Cholecystectomy, hemorrhoidectomy, hernia repair, prostate surgery. He has had cataracts removed as well. HOME MEDICATIONS: Includes Fenofibrate 160 mg daily, Proscar 5 mg a day, Metformin 500 mg b.i.d., Bystolic 5 mg daily, Albuterol PRN basis, amlodipine 0.5 mg daily, Lasix 20 mg a day and potassium 8 mEq daily. ALLERGIES: NKDA. PHYSICAL EXAMINATION: The patient's vital signs on admission showed temperature 97.9F, pulse 85, respiratory rate 20, blood pressure 150/64. O2 saturation 94%. HEENT: Normocephalic, atraumatic. Pupils equal round reactive to light. Extraocular movements intact. Oropharynx is pink and moist. NECK: Supple without lymphadenopathy, thyromegaly or JVD. CHEST: Essentially clear to auscultation. HEART: Regular rate and rhythm without murmurs, rubs or gallops. ABDOMEN: Soft. No palpable masses were felt. EXTREMITIES: Without clubbing, cyanosis or edema. NEUROLOGIC: The patient appears to be alert and oriented x3 with no obvious focal deficits. LAB DATA AND TESTS: The patient's laboratory studies revealed EKG showing normal sinus rhythm. He had chest x-ray that was negative. He had x-rays of his ribs and knees which were negative. He had CT scan which showed nonacute senile brain. The patient's laboratory studies otherwise showed sugar 177 nonfasting, BUN 21, creatinine 0.8. Electrolytes were normal. Liver enzymes are normal. White blood cell count 5,500. Hemoglobin 13.0. PLT count 199,000. UA was normal with specific gravity 1.020. Lactic acid slightly elevated at 2.3. B12 normal at 343. TSH normal 1.2. ASSESSMENT: The patient was given IV fluids in the emergency room which seemed to help a little but was still quite unsteady of gait. The patient will be therefore admitted for further evaluation. We will obtain a tele-neurology consultation. Plan to do MRI of brain and cervical spine. We will check carotid Doppler and echocardiogram as well to complete the evaluation. The patient will be monitored closely for fall prevention and check orthostatic vitals. He will be given normal saline fluids in the interim. He will continue on his usual home medications and monitor his sugars as well.
[2018-04-08 14:23] LABS: RPR Screen Non Reactive (Non Reactive)
--- NOTE | 2018-04-08 15:19 | XRAY ---
Indication: Dizziness and difficulty walking. Syncopal episode. Sagittal and axial MRI cervical spine was performed without contrast using T1 and T2 weighted sequences. Comparison: None Sagittal images demonstrates normal cervical lordosis with mild levoscoliosis, multilevel degenerative disc desiccation signal, and congenital C2-C3 fusion. Disc spaces maintained. No acute compression fracture or subluxation. Spinal cord is normal in course and caliber without signal abnormality. Normal-appearing craniocervical junction. Sagittal images through the C2-C3 level unremarkable. Axial images at the C3-C4 level demonstrates mild broad-based disc bulge minimally effacing the thecal sac and bilateral foraminal stenosis due to uncovertebral spurring and mild bilateral degenerative facet hypertrophy. Mean AP thecal sac diameter is 6-7 mm. No focal disc herniation. At the C4-C5 level, there is bilateral foraminal narrowing left greater than right due to uncovertebral spurring. No focal disc herniation, spinal canal, or foraminal stenosis. Mild degenerative facet hypertrophy, right greater than left. At the C5-C6 level, there is minimal broad-based disc bulge minimally effacing thecal sac. Left foraminal stenosis and right foraminal narrowing due to uncovertebral spurring. No focal disc herniation or spinal canal stenosis. At the C6-C7 level, there is minimal broad base left lateral disc bulge minimally effacing the thecal sac. Bilateral foraminal stenosis due to uncovertebral spurring. No focal disc herniation or canal stenosis. At the C7-T1 level, there is bilateral foraminal stenosis due to uncovertebral spurring. No focal disc herniation or canal stenosis. Impression: Multilevel degenerative disc disease detailed level by level. Greatest extent at C3-C4 where there is spinal canal narrowing and bilateral foraminal stenosis.
--- NOTE | 2018-04-08 15:37 | XRAY ---
Indication: Dizziness and difficulty walking. Headache. Syncopal episode. Sagittal, coronal, and axial MRI brain was performed without contrast using T1, T2, FLAIR, diffusion, and ADC sequences. Comparison: None Age-appropriate global atrophy and mild periventricular degenerative micro-ischemia bilaterally. Mild prominent Virchow Jason spaces bilaterally. No acute intracranial hemorrhage, abnormal extra axial fluid collection, or mass effect. Diffusion images are negative for restricted signal. Fourth ventricle is midline without hydrocephalus. 7/8 cranial nerve complex bilaterally symmetric. Normal flow void signal within the major intracerebral circulation. Normal appearing craniocervical junction and sella turcica. Paranasal sinuses are clear. Impression: 1. Normal aging brain including atrophy and degenerative micro-ischemia. 2. No acute intracranial abnormalities or evidence for evolving large vessel territorial stroke.
[2018-04-09] MEDS: Sodium Chloride 0.9% 1000 ML 1,000 ML IV SCH ×2 (01:50→05:54)
[2018-04-09 04:29] VITALS: O2SAT 94
[2018-04-09 07:08] VITALS: BP 142/74; PULSE 66
[2018-04-09] MEDS: Glucophage 500 MG PO SCH (07:40)
[2018-04-09] MEDS: FISH OIL 1,000 MG CAPSULE PO SCH (09:14)
[2018-04-09] MEDS: Bystolic 5 MG PO SCH (09:14)
[2018-04-09] MEDS: Klor Con 10 MEQ PO SCH (09:14)
[2018-04-09] MEDS: Tricor 145 MG PO SCH (09:14)
[2018-04-09] MEDS: LASIX 20 MG PO SCH (09:15)
[2018-04-09] MEDS: NORVASC 5 MG PO SCH (09:15)
[2018-04-09] MEDS: Proscar 5 MG PO SCH (09:15)
[2018-04-09] MEDS: ENOXAPARIN SODIUM SQ SCH (09:16)
--- NOTE | 2018-04-12 09:04 | DS ---
DISCHARGE DIAGNOSES: 1) PERIPHERAL NEUROPATHY. 2) FALLING EPISODES. 3) DIZZINESS. HISTORY: The patient is a 77 year-old male patient who has been having problems with increasing difficulty with his gait due to falling with unsteadiness of gait over the past several months. It has progressed to the point now where he is unable to take a few steps without falling. He presented to the emergency room and was admitted for further evaluation and management. HOSPITAL COURSE: The patient had MRI, CT scans of the brain which showed nonacute senile brain. No acute findings were noted. Specifically, no evidence of any CVA. The patient had a tele-neurology consult which was somewhat limited due to inability to do a bedside exam for peripheral neurology but otherwise they felt that the cerebellar findings were essentially normal and that the patient would essentially need PT for rehab. We did consult OT and PT for the patient who was after a couple of days able to ambulate up to the bathroom and he had done so a few times without assistance despite our advising otherwise. The patient has been refusing to use his walker routinely. After discussion with the family, they felt that they wanted to take him back home at this point with home health care and outpatient PT. We have set up an appointment to see his neurologist in three weeks is the earliest appointment we could get. The patient will be discharged home on his usual medications otherwise with Albuterol, amlodipine, Fenofibrate, Finasteride, Furosemide, meclizine, Metformin, Bystolic and potassium. He will see me in the office after his evaluation by the neurologist or sooner if they feel like they need to see me. The patient did have his lab studies during his admission show RPR that was nonreactive. He had negative urine culture. He had a normal CBC. He had a normal CMP except for his sugar which was a little bit elevated due this diabetes. He had lactic acids which were slightly elevated to begin with but otherwise were normal. He had UA which was normal. His x-rays after the fall showed no fractures anywhere. He had B12 and thyroid levels which were normal as well. Again, the patient will have a follow up evaluation with his neurologist and he will see me in the office shortly thereafter.
== END 2018-04-09 10:45 | disposition home health service (06) ==
LOC: ED 09:07 → MED SURG 12:12
PROVIDERS: ADMIT Family Medicine; ATTEND Family Medicine
DX: G62.9 Polyneuropathy, unspecified (principal); R29.6 Repeated falls; R42 Dizziness and giddiness; E11.9 Type 2 diabetes mellitus without complications; Z79.4 Long term (current) use of insulin; E78.5 Hyperlipidemia, unspecified; J44.9 Chronic obstructive pulmonary disease, unspecified; Z79.899 Other long term (current) drug therapy
CPT/HCPCS: 36000; 36415; 70450; 70551; 71046; 71100; 72141; 73562; 80048; 80053; 81000; 82607; 83605; 83690; 84443; 85025; 85027; 86592; 86593; 86780; 87086; 93268; 94660; 94760; 94762; 99285; J1650; A9270-GY; G0378

== ENCOUNTER 2021-03-31 06:52 | Day surgery (SDC) | payer MEDICARE, OTHER ==
--- NOTE | 2021-03-24 09:29 | HP ---
DATE OF SURGERY: 03/31/2021 HISTORY OF PRESENT ILLNESS: The patient is an 80 year-old male who presented with right shoulder subcutaneous mass, somewhat mobile and nontender. It is about 5 x 5 cm. He noticed it back in February. He reports it is getting bigger. It is not painful. It looks like it is probably attached to the joint, some kind of ganglion of some sort. PAST MEDICAL HISTORY: Diabetes. Heart disease. PAST SURGICAL HISTORY: Cataracts. Cholecystectomy. Prostate tumor removed. Lithotripsy. ALLERGIES: NKDA. MEDICATIONS: Metoprolol, Albuterol, amlodipine, Fenofibrate, finasteride, furosemide, metformin, naproxen, fish oil, potassium. FAMILY HISTORY: None reported. SOCIAL HISTORY: None reported. REVIEW OF SYSTEMS: CONSTITUTIONAL: Denies fever or chills. CHEST: Denies shortness of breath. CVS: Denies chest pain. ABDOMEN: Denies abdominal pain. INTEGUMENTARY: Right shoulder mass. PHYSICAL EXAMINATION: GENERAL: No acute distress. CHEST: Nonlabored. No shortness of breath. CVS: Regular rate and rhythm. ABDOMEN: Soft. EXTREMITIES: No edema. NEUROLOGIC: Alert. PSYCHIATRIC: Appropriate. IMPRESSION: Subcutaneous mass right shoulder likely ganglion in nature. PLAN: Excision of right shoulder subcutaneous mass with Dr. Rober Shabazz. As dictated by Deirdre Hines NP.
[2021-03-31] MEDS ORDERED: CEFAZOLIN 2 GM-D5W BAG** 2 GM/50 ML ML IV ONE (06:53)
[2021-03-31] MEDS ORDERED: Lactated Ringers 1,000 ML IV SCH (07:00)
[2021-03-31] MEDS ORDERED: Sensorcaine 0.25% 10 ML ONE ×2 (07:18→11:09)
[2021-03-31] MEDS ORDERED: Lactated Ringers 1,000 ML IV ONE ×2 (07:18→07:19)
[2021-03-31] MEDS ORDERED: SUBLIMAZE 100 MCG/2 ML ONE (10:52)
[2021-03-31] MEDS ORDERED: DIPRIVAN 200 MG/20 ML IV ONE (10:54)
[2021-03-31] MEDS ORDERED: Xylocaine-Mpf 2% 5 Ml Vial ONE (10:54)
[2021-03-31 13:12] VITALS: BP 132/94; PULSE 69; O2SAT 92
--- NOTE | 2021-03-31 14:43 | OP ---
SURGERY DATE/TIME: 03/31/2021 1052 PREOPERATIVE DIAGNOSIS: Mass right shoulder. POSTOPERATIVE DIAGNOSIS: Mass right shoulder 4 cm of bursa with chronic inflammation. PROCEDURE: Excision of 4 cm inflamed bursa. SURGEON: Rober Shabazz M.D. ANESTHESIA: General. COMPLICATIONS: None. CONDITION: Stable. INDICATION: The patient has a mass right shoulder. It is enlarged. It is fairly smooth. It is painful. It is symptomatic per the patient. DESCRIPTION OF PROCEDURE: He is taken to surgery. Marked preoperatively. Time out performed. Routine prep and drape. 0.25% Marcaine. Transverse incision. It was a 4 cm inflamed bursa. It was totally mobilized. There was a small pinhole going into the shoulder bone area which was cauterized and approximated with 3-0 Vicryl and a small amount of bone wax was also tucked into this location. A 10 DAMON was placed. The field was dry. Closed with inverting 3-0 PDS followed by 4-0 Vicryl and Steri-Strips. The patient tolerated the procedure satisfactorily.
== END 2021-03-31 12:50 | disposition home or self-care (01) ==
LOC: SDC 06:52
PROVIDERS: ATTEND Surgery
DX: M67.411 Ganglion, right shoulder (principal); M71.311 Other bursal cyst, right shoulder; E11.9 Type 2 diabetes mellitus without complications; Z79.899 Other long term (current) drug therapy
CPT/HCPCS: 23076; 82947; 82962; G0463; 88304; 99100; J0690; J2704; J3010

== ENCOUNTER 2024-02-19 18:30 | Inpatient (IN) | payer MEDICARE, OTHER ==
--- NOTE | 2024-02-19 18:49 | ERPHSYRPT ---
- History of Present Illness Time Seen by Provider: 02/19/24 18:49 Source: patient Exam Limitations: no limitations Patient Subjective Stated Complaint: shortness of breath for approx 3 weeks with a previous ER visit and a couple of 's appts Triage Nursing Assessment: Pt brought to the ER by his son, hypertensive, rates pain as 7/10, pulses normal, skin n/w/d, white bubbly sputum, has been sick for 3 weeks and had been diagnosed with pneumonia and had been on antibiotics but did not get any better, reports his right ear hurting and hurts in his throat and feels like his throat is closing off, oxygen was 92% upon arrival and was placed on 2 L NC Physician History: The patient, with a history of recent pneumonia, presents with worsening shortness of breath over the past three weeks. Despite treatment with Rocephin and Cefdinir, he has not improved and is now experiencing sleep disturbances due to difficulty breathing. He reports productive cough with white and green sputum. He denies fever and chest pain, but reports feeling 'queasy.' He has been using his 's supplemental oxygen at home, consuming 14 bottles in one weekend. In addition to respiratory symptoms, he has a bacterial infection between his toes, which is being treated by Dr. Gregory. He also reports ear pain and a sensation of throat closure. He has a history of fluid retention and takes a diuretic, but denies any recent increase in abdominal girth or discomfort. Timing/Duration: week(s) (3), worse Activities at Onset: rest, sleep Severity of Dyspnea-Max: severe Severity of Dyspnea-Current: severe Possible Cause: occasional episodes Modifying Factors: Improves With: oxygen. Worsens With: activity, coughing, deep breath, exertion, lying down Associated Symptoms: constant, cough, insomnia, loss of appetite, weakness, productive cough, No chest pain/discomfort, No edema, No fever, No hemoptysis, No dizziness, No leg swelling, No painful breathing Allergies/Adverse Reactions: Sulfa (Sulfonamide Antibiotics) Adverse Reaction (Verified 02/19/24 18:48) Home Medications: Fenofibrate 160 mg PO DAILY 12/01/16 [History] Finasteride 5 mg [Proscar 5 MG] 5 mg PO DAILY 12/01/16 [History] Metformin HCl 500 mg [Glucophage 500 MG] 500 mg PO BID 12/01/16 [History] [place]-3 Fatty Acids/Fish Oil [Fish Oil 1,000 mg Softgel] 1 cap PO BID 12/01/16 [History] Albuterol Sulfate [Proair Hfa] 8.5 gm IH Q4HPRN PRN 12/27/17 [History] Amlodipine Besylate [Norvasc] 10 mg PO DAILY 12/27/17 [History] Furosemide [Lasix] 40 mg PO DAILY 12/27/17 [History] Potassium Chloride [Klor-Con 8] 8 meq PO DAILY 12/27/17 [History] Metoprolol Succinate 50 mg [Toprol Xl 50 MG] 50 mg PO DAILY 03/23/21 [Hist ory] Hx Tetanus, Diphtheria Vaccination/Date Given: Yes Hx Influenza Vaccination/Date Given: Yes Hx Pneumococcal Vaccination/Date Given: Yes Travel Risk - International Travel Have you traveled outside of the country in past 3 weeks: No - Emerging Infectious Disease Are you exhibiting symptoms associated with any current EIDs: Yes Symptoms: Shortness of Breath - Review of Systems All Other Systems: Reviewed and Negative - Past Medical History Pertinent Past Medical History: Yes Neurological History: No Pertinent History ENT History: Cataracts, Glaucoma Cardiac History: High Cholesterol, Hypertension Respiratory History: Sleep Apnea Endocrine Medical History: Diabetes Type II Musculoskeletal History: Arthritis GI Medical History: No Pertinent History History: Other Psycho-Social History: No Pertinent History Male Reproductive Disorders: Prostate Problems Other Medical History: hx of kidney stones, mass on right shoulder - Past Surgical History Past Surgical History: Yes Neuro Surgical History: No Pertinent History Cardiac: No Pertinent History Respiratory: No Pertinent History Gastrointestinal: Cholecystectomy, Hemorrhoidectomy, Hernia Repair Genitourinary: No Pertinent History Musculoskeletal: Other Male Surgical History: Prostate Surgery Other Surgical History: tumors removed from back, cataract/lens left eye january 2017 - Social History Smoking Status: Former smoker How long have you smoked: 20 years Exposure to second hand smoke: No Drug Use: none Patient Lives Alone: No - Social Determinants of Health Will the patient participate in the screening: Declined to provide - Nursing Vital Signs Nursing Vital Signs: Initial Vital Signs Temperature 98.3 F 02/19/24 18:33 Pulse Rate 69 02/19/24 18:33 Respiratory Rate 15 02/19/24 18:33 Blood Pressure 151/81 02/19/24 18:33 O2 Sat by Pulse Oximetry 97 02/19/24 18:33 Pain Scale Pain Intensity 0 - Physical Exam General Appearance: moderate distress Eye Exam: eyes nml inspection Ears, Nose, Throat Exam: hearing grossly normal, normal ENT inspection, normal pharynx (elongated uvula) Neck Exam: normal inspection, non-tender, supple, full range of motion Respiratory Exam: airway intact, diminished breath sounds, crackles/rales, No respiratory distress Cardiovascular/Chest Exam: normal heart sounds Abdominal/Gastrointestinal Exam: distention, other (+ tympanic), No tenderness, No guarding, No rebound Extremity Exam: No calf tenderness, No swelling Neurologic Exam: alert, oriented x 3, cooperative, normal mood/affect, nml cerebellar function Skin Exam: normal color, warm, dry SpO2 Interpretation: hypoxic SpO2: 97 O2 Delivery: Nasal Cannula (2) - Course Nursing assessment & vital signs reviewed: Yes EKG Interpreted by Me: RATE (66), Sinus Rhythm, Other (no contiguous ST changes) - CT Exams Abdomen/Pelvis CT Interpretation: Tele-radiologist Report, Other (10mm calculus lower pole right kidney) Chest CT Interpretation: Tele-radiologist Report, No PE, Other (moderate pleural effusion, moderate cardiomegaly) Ordered Tests: Active Orders 24 hr Category Date Time Status Associate Theatre Professor STAT Care 02/19/24 19:05 Active EKG-ER Only STAT Care 02/19/24 19:05 Active IV Insertion STAT Care 02/19/24 19:04 Active Oxygen-ED Only Nasal Cannula 2 lpm Care 02/19/24 18:49 Active ABDOMEN AND PELVIS W CONTRAST [CT] Stat Exams 02/19/24 18:56 Taken CHEST WITH CONTRAST [CT] Stat Exams 02/19/24 18:56 Completed BLOOD CULTURE Stat Lab 02/19/24 19:20 Received CBC W DIFF Stat Lab 02/19/24 18:45 Completed CMP Stat Lab 02/19/24 18:45 Completed Lactic Acid Stat Lab 02/19/24 19:05 Completed MAGNESIUM Stat Lab 02/19/24 18:45 Completed NT PRO BNPII Stat Lab 02/19/24 18:45 Completed TROPONIN Q4H Lab 02/19/24 18:45 Completed TROPONIN Q4H Lab 02/19/24 22:50 Completed TROPONIN Q4H Lab 02/20/24 03:00 Ordered VENOUS BLOOD GAS Stat Lab 02/19/24 19:05 Completed BiPap/CPAP ROUTINE RT 02/19/24 22:34 Active Respiratory Therapy Assessment DAILY RT 02/19/24 19:18 Active Standby ROUTINE RT 02/19/24 22:46 Active Medication Summary Discontinued Medications Generic Name Dose Route Start Last Admin Trade Name Glo PRN Reason Stop Dose Admin Albuterol/Ipratropium 3 ml 02/19/24 18:49 02/19/24 19:19 Ipratropium/Albuterol Sulfate 3 Ml Ampul.Neb IH 02/19/24 18:50 3 ml STAT ONE Administration Albuterol/Ipratropium Confirm 02/19/24 19:02 Ipratropium/Albuterol Sulfate 3 Ml Ampul.Neb Administered 02/19/24 19:03 Dose 3 ml IH .STK-MED ONE Methylprednisolone Sodium 0 mg 02/19/24 18:49 02/19/24 19:10 Succinate 125 mg/ Sterile IV 02/19/24 18:50 125 mg Water 2 ml STAT ONE Administration Fentanyl Citrate 25 mcg 02/19/24 21:41 02/19/24 21:45 Fentanyl Citrate 100 Mcg/2 Ml* Vial IV 02/19/24 21:42 25 mcg STAT ONE Administration Fentanyl Citrate Confirm 02/19/24 21:44 Fentanyl Citrate 100 Mcg/2 Ml* Vial Administered 02/19/24 21:45 Dose 100 mcg .ROUTE .STK-MED ONE Sodium Chloride 1,000 mls @ 999 mls/hr 02/19/24 18:49 02/19/24 20:11 Sodium Chloride 0.9% 1000 Ml IV 02/19/24 19:49 Infused .Q1H1M STA Infusion Levofloxacin/Dextrose 750 mg in 150 mls @ 100 mls/hr 02/19/24 18:49 02/19/24 20:48 Levofloxacin 750mg/150ml D5w IV 02/19/24 20:18 Infused STAT STA Infusion Sodium Chloride Confirm 02/19/24 19:06 Sodium Chloride 0.9% 1000 Ml Administered 02/19/24 19:07 Dose 1,000 mls @ ud .ROUTE .STK-MED ONE Levofloxacin/Dextrose Confirm 02/19/24 19:14 Levofloxacin 750mg/150ml D5w Administered 02/19/24 19:15 Dose 750 mg in 150 mls @ ud IV .STK-MED ONE Methylprednisolone Sodium Succinate Confirm 02/19/24 19:06 Methylprednis Sod Succ 125 Mg/2 Ml Vial Administered 02/19/24 19:07 Dose 125 mg .ROUTE .STK-MED ONE Ondansetron HCl Confirm 02/19/24 22:13 Ondansetron Hcl 4 Mg/2 Ml Vial Administered 02/19/24 22:14 Dose 4 mg .ROUTE .STK-MED ONE Ondansetron HCl 4 mg 02/19/24 22:14 02/19/24 22:16 Ondansetron Hcl 4 Mg/2 Ml Vial IV 02/19/24 22:15 4 mg STAT ONE Administration Sterile Water Confirm 02/19/24 19:06 Water For Injection,Sterile 10 Ml Vial Administered 02/19/24 19:07 Dose 10 ml IJ .STK-MED ONE Lab/Rad Data: Laboratory Result Diagrams 02/19/24 18:45 02/19/24 18:45 Laboratory Results 02/19/24 02/19/24 02/19/24 Range/Units 22:50 19:05 19:05 WBC (4.23-9.07) x10^3/uL RBC (4.63-6.08) x10^6/uL Hgb (13.7-17.5) g/dL Hct (40.1-51.0) % MCV (79.0-92.2) fL MCH (25.7-32.2) pg MCHC (32.3-36.5) g/dL RDW (11.6-14.4) % Plt Count (163-337) x10^3/uL MPV (9.4-12.4) fL Gran % (34.0-67.9) % Immature Gran % (Auto) (0.001-0.429) % Nucleat RBC Rel Count (0.00-0.2) % Eos # (Auto) (0.04-0.54) x10^3/uL Immature Gran # (Auto) (0.001-0.031) x10^3u/L Absolute Lymphs (auto) (1.32-3.57) x10^3/uL Absolute Monos (auto) (0.30-0.82) x10^3/uL Absolute Nucleated RBC (0.00-0.012) x10^3u/L Lymphocytes % (21.8-53.1) % Monocytes % (5.3-12.2) % Eosinophils % (0.8-7.0) % Basophils % (0.2-1.2) % Absolute Granulocytes (1.78-5.38) x10^3/uL Basophils # (0.01-0.08) x10^3/uL pO2/FiO2 Ratio 21.0 % VBG pH 7.35 (7.32-7.42) VBG pCO2 at Pat Temp 66 H* (42-55) mm/Hg VBG pO2 at Pat Temp 27 (25-40) mm/Hg VBG HCO3 36.4 H* (22-28) meq/L VBG O2 Sat (Christ) 47.7 L (95-100) VBG Base Excess 8.8 H (-2.0-2.0) VBG Hemoglobin 11.3 VBG Carboxyhemoglobin 3.8 (0.0-6.9) % T HGB POC Potassium 4.7 (3.5-5.1) Sodium (135-145) mmol/L Potassium (3.5-5.1) mmol/L Chloride (98-107) mmol/L Carbon Dioxide (22-30) mmol/L Anion Gap (5-15) MEQ/L BUN (9-20) mg/dL Creatinine (0.66-1.25) mg/dL Estimated GFR ML/MIN Glucose (74-106) mg/dL Lactic Acid 1.2 (0.4-2.0) Calcium (8.4-10.2) mg/dL Magnesium (1.6-2.3) mg/dL Total Bilirubin (0.2-1.3) mg/dL AST (17-59) U/L ALT (0-50) U/L Alkaline Phosphatase (38-126) U/L Troponin I 0.013 (0.000-0.033) ng/mL NT-Pro-B Natriuret Pep (<300) pg/mL Serum Total Protein (6.3-8.2) g/dL Albumin (3.5-5.0) g/dL Influenza Type A Ag (NEGATIVE) Influenza Type B Ag (NEGATIVE) RSV (PCR) (NEGATIVE) SARS-CoV-2 (PCR) (NEGATIVE) 02/19/24 02/19/24 02/19/24 Range/Units 19:00 18:45 18:45 WBC (4.23-9.07) x10^3/uL RBC (4.63-6.08) x10^6/uL Hgb (13.7-17.5) g/dL Hct (40.1-51.0) % MCV (79.0-92.2) fL MCH (25.7-32.2) pg MCHC (32.3-36.5) g/dL RDW (11.6-14.4) % Plt Count (163-337) x10^3/uL MPV (9.4-12.4) fL Gran % (34.0-67.9) % Immature Gran % (Auto) (0.001-0.429) % Nucleat RBC Rel Count (0.00-0.2) % Eos # (Auto) (0.04-0.54) x10^3/uL Immature Gran # (Auto) (0.001-0.031) x10^3u/L Absolute Lymphs (auto) (1.32-3.57) x10^3/uL Absolute Monos (auto) (0.30-0.82) x10^3/uL Absolute Nucleated RBC (0.00-0.012) x10^3u/L Lymphocytes % (21.8-53.1) % Monocytes % (5.3-12.2) % Eosinophils % (0.8-7.0) % Basophils % (0.2-1.2) % Absolute Granulocytes (1.78-5.38) x10^3/uL Basophils # (0.01-0.08) x10^3/uL pO2/FiO2 Ratio % VBG pH (7.32-7.42) VBG pCO2 at Pat Temp (42-55) mm/Hg VBG pO2 at Pat Temp (25-40) mm/Hg VBG HCO3 (22-28) meq/L VBG O2 Sat (Christ) (95-100) VBG Base Excess (-2.0-2.0) VBG Hemoglobin VBG Carboxyhemoglobin (0.0-6.9) % T HGB POC Potassium (3.5-5.1) Sodium 140 (135-145) mmol/L Potassium 4.4 (3.5-5.1) mmol/L Chloride 101 (98-107) mmol/L Carbon Dioxide 34 H (22-30) mmol/L Anion Gap 9.8 (5-15) MEQ/L BUN 24 H (9-20) mg/dL Creatinine 0.85 (0.66-1.25) mg/dL Estimated GFR 85.7 ML/MIN Glucose 134 H (74-106) mg/dL Lactic Acid (0.4-2.0) Calcium 10.5 H (8.4-10.2) mg/dL Magnesium 1.8 (1.6-2.3) mg/dL Total Bilirubin 0.50 (0.2-1.3) mg/dL AST 19 (17-59) U/L ALT 13 (0-50) U/L Alkaline Phosphatase 52 (38-126) U/L Troponin I 0.015 (0.000-0.033) ng/mL NT-Pro-B Natriuret Pep 1390 (<300) pg/mL Serum Total Protein 6.9 (6.3-8.2) g/dL Albumin 3.9 (3.5-5.0) g/dL Influenza Type A Ag NEGATIVE (NEGATIVE) Influenza Type B Ag NEGATIVE (NEGATIVE) RSV (PCR) NEGATIVE (NEGATIVE) SARS-CoV-2 (PCR) NEGATIVE (NEGATIVE) 02/19/24 Range/Units 18:45 WBC 4.7 (4.23-9.07) x10^3/uL RBC 3.84 L (4.63-6.08) x10^6/uL Hgb 10.8 L (13.7-17.5) g/dL Hct 35.2 L (40.1-51.0) % MCV 91.7 (79.0-92.2) fL MCH 28.1 (25.7-32.2) pg MCHC 30.7 L (32.3-36.5) g/dL RDW 14.1 (11.6-14.4) % Plt Count 194 (163-337) x10^3/uL MPV 9.0 L (9.4-12.4) fL Gran % 67.8 (34.0-67.9) % Immature Gran % (Auto) 0.2 (0.001-0.429) % Nucleat RBC Rel Count 0.0 (0.00-0.2) % Eos # (Auto) 0.14 (0.04-0.54) x10^3/uL Immature Gran # (Auto) 0.01 (0.001-0.031) x10^3u/L Absolute Lymphs (auto) 0.79 L (1.32-3.57) x10^3/uL Absolute Monos (auto) 0.53 (0.30-0.82) x10^3/uL Absolute Nucleated RBC 0.00 (0.00-0.012) x10^3u/L Lymphocytes % 16.8 L (21.8-53.1) % Monocytes % 11.3 (5.3-12.2) % Eosinophils % 3.0 (0.8-7.0) % Basophils % 0.9 (0.2-1.2) % Absolute Granulocytes 3.19 (1.78-5.38) x10^3/uL Basophils # 0.04 (0.01-0.08) x10^3/uL pO2/FiO2 Ratio % VBG pH (7.32-7.42) VBG pCO2 at Pat Temp (42-55) mm/Hg VBG pO2 at Pat Temp (25-40) mm/Hg VBG HCO3 (22-28) meq/L VBG O2 Sat (Christ) (95-100) VBG Base Excess (-2.0-2.0) VBG Hemoglobin VBG Carboxyhemoglobin (0.0-6.9) % T HGB POC Potassium (3.5-5.1) Sodium (135-145) mmol/L Potassium (3.5-5.1) mmol/L Chloride (98-107) mmol/L Carbon Dioxide (22-30) mmol/L Anion Gap (5-15) MEQ/L BUN (9-20) mg/dL Creatinine (0.66-1.25) mg/dL Estimated GFR ML/MIN Glucose (74-106) mg/dL Lactic Acid (0.4-2.0) Calcium (8.4-10.2) mg/dL Magnesium (1.6-2.3) mg/dL Total Bilirubin (0.2-1.3) mg/dL AST (17-59) U/L ALT (0-50) U/L Alkaline Phosphatase (38-126) U/L Troponin I (0.000-0.033) ng/mL NT-Pro-B Natriuret Pep (<300) pg/mL Serum Total Protein (6.3-8.2) g/dL Albumin (3.5-5.0) g/dL Influenza Type A Ag (NEGATIVE) Influenza Type B Ag (NEGATIVE) RSV (PCR) (NEGATIVE) SARS-CoV-2 (PCR) (NEGATIVE) - Progress Progress: unchanged Air Movement: fair Progress Note: Patient arrived in mild distress but improved with 2 L of nasal cannula. Initial laboratory evaluation showed mild anemia, CO2 66, BNP 1300 with a normal white count and normal lactate. CTA showed no PE but did show moderate bilateral pleural effusion. CT scan was ordered to evaluate for his distended tympanic abdomen which showed no ascites and no signs of small bowel obstruction. Patient was started on levofloxacin for antibiotic coverage. His oxygen requirement increased to 4 L he was also placed on BiPAP once his CO2 of 66 was resulted. We attempted to wean back down to nasal cannula, patient is more comfortable on BiPAP. Accepted for admission by Dr. Lu. 02/20/24 00:18 02/20/24 00:30 Blood Culture(s) Obtained: Yes Antibiotics given: Yes Discussed with Dr.: Other (Aly) Will see patient in: hospital (observation) Counseled pt/family regarding: lab results, diagnosis, need for follow-up, rad results Medical Desision Making - Independent Historian Additional History obtained from: Spouse, Child - Discussion of managment Care discussed with:: hospitalist Reviewed:: Test results Agreed on:: Treatment plan, place in obs Will see patient: in hospital - Diagnostic Testing Diagnostic test were ordered, analyzed, and reviewed by me: Yes Radiological Interpretation: Interpreted by me, Reviewed by me, Teleradiologist Report - Risk of complications The pt has a mod risk of morbidity or mortality based on: Need for prescription drug management The pt has a high risk of morbidity or mortality based on: Decision regarding hospitilization or escalation of hosp level of care - Departure Departure Disposition: In-patient Admission Clinical Impression: Anemia, SOB (shortness of breath), Pleural effusion, Cardiomegaly, Pneumonia Condition: Stable Critical Care Time: No Referrals: SUE COLBERT [Primary Care Provider] - Follow up/PCP as directed Instructions: Shortness of Breath (Dyspnea) (DC)
[2024-02-19] MEDS ORDERED: DUONEB 0.5-3 MG/3 ml Neb IH ONE (19:02)
[2024-02-19] MEDS ORDERED: Sodium Chloride 0.9% 1000 ML 1,000 ML ONE (19:06)
[2024-02-19] MEDS ORDERED: Sterile H2O 10 ml IJ ONE (19:06)
[2024-02-19] MEDS ORDERED: solu-MEDROL ONE (19:06)
[2024-02-19 19:08] LABS: Absolute Neutrophil Ct (ANC) 3.19 x10^3/uL (1.78-5.38); BASOPHIL % 0.9 % (0.2-1.2); Basophil (Absolute #) 0.04 x10^3/uL (0.01-0.08); Eosinophil (Absolute #) 0.14 x10^3/uL (0.04-0.54); Hematocrit 35.2 % (40.1-51.0); Hemoglobin 10.8 g/dL (13.7-17.5); IMMATURE GRAN # 0.01 x10^3u/L (0.001-0.031); IMMATURE GRAN % 0.2 % (0.001-0.429); Lymphocyte (Absolute #) 0.79 x10^3/uL (1.32-3.57); Lymphocytes % 16.8 % (21.8-53.1); Mean Cell Volume 91.7 fL (79.0-92.2); Mean Corpuscular Hemoglobin 28.1 pg (25.7-32.2); Mean Corpuscular Hgb Concent. 30.7 g/dL (32.3-36.5); Monocyte (Absolute #) 0.53 x10^3/uL (0.30-0.82); Monocytes % 11.3 % (5.3-12.2); Neutrophil % 67.8 % (34.0-67.9); Platelet Count 194 x10^3/uL (163-337); Red Blood Count 3.84 x10^6/uL (4.63-6.08); Red Cell Distribution Width 14.1 % (11.6-14.4); White Blood Count 4.7 x10^3/uL (4.23-9.07)
[2024-02-19] MEDS: Sodium Chloride 0.9% 1000 ML 1,000 ML IV STA (19:10)
[2024-02-19] MEDS: solu-MEDROL 125 MG, Sterile H2O 10 ml 2 ML IV ONE (19:10)
[2024-02-19 19:13] LABS: VBG BASE EXCESS 8.8 (-2.0-2.0); VBG CARBOXYHEMOGLOBIN 3.8 % T HGB (0.0-6.9); VBG HCO3- 36.4 meq/L (22-28); VBG HEMOGLOBIN 11.3; VBG O2 SATURATION 47.7 (95-100); VBG POTASSIUM 4.7 (3.5-5.1); VBG pH 7.35 (7.32-7.42)
[2024-02-19] MEDS ORDERED: LEVOFLOXACIN 750MG/150ML D5W 750 MG/150 ML BAG IV ONE (19:14)
[2024-02-19] MEDS: LEVOFLOXACIN 750MG/150ML D5W 750 MG/150 ML BAG IV STA (19:16)
[2024-02-19] MEDS: DUONEB 0.5-3 MG/3 ml Neb IH ONE (19:19)
[2024-02-19 19:38] LABS: ALBUMIN 3.9 g/dL (3.5-5.0); ANION GAP 9.8 MEQ/L (5-15); BILIRUBIN,TOTAL 0.5 mg/dL (0.2-1.3); Calcium 10.5 mg/dL (8.4-10.2); Creatinine 1 0.85 mg/dL (0.66-1.25); EST GLOMERULAR FILTRATION RATE 85.7 ML/MIN; MAGNESIUM 1.8 mg/dL (1.6-2.3); Potassium 4.4 mmol/L (3.5-5.1); Total Protein 6.9 g/dL (6.3-8.2)
[2024-02-19 19:44] LABS: INFLUENZA A NEGATIVE (NEGATIVE); INFLUENZA B NEGATIVE (NEGATIVE); RESPIRATORY SYNCTIAL VIRUS NEGATIVE (NEGATIVE); SARS-CoV-2 Xpert Express NEGATIVE (NEGATIVE)
[2024-02-19] MEDS ORDERED: SUBLIMAZE 100 MCG/2 ML ONE (21:44)
[2024-02-19] MEDS: SUBLIMAZE 100 MCG/2 ML IV ONE (21:45)
[2024-02-19] MEDS ORDERED: Zofran 4 MG/2 ML VIAL ONE (22:13)
[2024-02-19] MEDS: Zofran 4 MG/2 ML VIAL IV ONE (22:16)
--- NOTE | 2024-02-19 23:13 | XRAY ---
CLINICAL HISTORY: sob COMPARISON: None. TECHNIQUE: Contiguous 3.[address] images of the chest were acquired with administration of intravenous contrast. Coronal and sagittal reconstructions were also obtained. One of the following dose reduction techniques was utilized for this exam.Automated exposure control, adjustment of the mA and/or kV according to patient size, and use of iterative reconstruction. 80 CC Isovue 370 was given as an IV contrast. FINDINGS: Bilateral moderate pleural effusion is noted with patches of consolidation in both lower lobes showing air-bronchograms. No consolidation or soft tissue nodularity seen in residual upper lobes. Main pulmonary artery and its branches show normal opacification, no evidence of thrombosis or luminal narrowing seen. Aortic arch and its main branches also show normal opacification, mild atherosclerotic changes are noted. No bronchiectasis or mucus plugging noted. Heart size is moderately enlarged,no pericardial effusion. No pathologically enlarged mediastinal, hilar or axillary lymph node was identified. There is no definite mass lesion in the chest wall. Scanned upper abdomen is unremarkable. Visualized skeleton shows moderate degenerative changes. IMPRESSION: Normal opacification of pulmonary vessels is noted, no embolism seen. Bilateral moderate pleural effusion is noted with patches of consolidation/collapse in both lower lobes. Moderate cardiomegaly. Appearances may be secondary to acute infectious disease process/fluid overload secondary to a cardiogenic cause. Clinical and laboratory correlation including aspiration of pleural fluid might be further helpful. ER was called at [phone] at 10:03 PM RISK ANALYST, 02/19/[address] Jefferson was informed about medical findings.. Electronically Signed by: Warren Gr MD. (02/19/2024 23:07:46 EDT)
--- NOTE | 2024-02-20 00:08 | XRAY ---
CLINICAL HISTORY: sob, ascites COMPARISON: None. TECHNIQUE: CT scan of the abdomen and pelvis was performed with IV contrast. Coronal and sagittal reconstructions were also obtained. One of the following dose reduction techniques was utilized for this exam.Automated exposure control, adjustment of the mA and/or kV according to patient size, and use of iterative reconstruction. FINDINGS: Liver measures 16.3 cm and shows diffuse hypoattenuation suggestive of fatty infiltration. it has regular margins. A 13 mm cyst is noted in segment 2 of liver. No solid hepatic mass is identified. The portal vein appears normal. Gall bladder is surgically absent. Common bile duct and intrahepatic biliary channels are prominent likely due to post interventional changes. Pancreas appears normal. No peripancreatic fat stranding, pancreatic pseudocyst or peripancreatic fluid collection. Spleen normal in size, no mass seen. Both adrenal glands are unremarkable. Both kidneys are normal in size, shape and orientation. A 10 mm calculus is noted in the right kidney, no hydronephrosis. A 13 mm hyperdense cyst is seen at midpole of left kidney. Another 12 mm cyst is seen at upper pole of the left kidney. No mass or hydronephrosis seen on either side. Both ureters and urinary bladder appear normal. Stomach and small bowel loops are unremarkable. Caecum and ileocecal junction appear normal. No abnormal gut wall thickening or mass lesion is appreciated. No evidence of bowel obstruction. Appendix appears normal. Prostate is enlarged measuring 113 grams and shows senile calcifications. No ascites or peritoneal nodularity is noted. 17 mm calcified nodule seen in the mesenteric fat on the RUQ. No evidence of significant enlargement of the mesenteric or retroperitoneal lymph nodes. Visualized thoracic and lumbar spine show marked degenerative changes. No lytic or sclerotic lesions in visualized bones. Visualized lung bases show moderate pleural effusion on both sides with patchy consolidation on both sides. IMPRESSION: 1. No acute pathology is identified in abdomen and pelvis. 2. Non-obstructing 10 mm calculus is noted at lower pole of right kidney. 3. Hyperdense cysts seen in left kidney measuring 12 mm and 13 mm at upper and midpoles respectively. US correlation is advised. 4. Visualized lung bases show moderate pleural effusion on both sides with patchy consolidation on both sides. Please refer to complete CT chest for further evaluation. Electronically Signed by: Warren Gr MD. (02/20/2024 00:05:24 EDT)
--- NOTE | 2024-02-20 00:26 | PCM.HP ---
History of Present Illness - Chief Complaint Chief Complaint: SOB History of Present Illness: Mr.NOBLE ANDREW is a 83 year old male who presents with 3 weeks of progressive worsening shortness of breath, cough, hypoxia. He was treated for PNA a few weeks ago. CT chest without PE or PNA in the ED, suspecting a COPD exacerbation. Improved with nebs with O2 but requiring monitoring, started of Levaquin. No fever, nausea, vomiting, chest pain or diarrhea. - Review of Systems Constitutional: No Fever, No Chills Eyes: No Symptoms Ears, Nose, & Throat: No Symptoms Respiratory: No Cough, No Short Of Breath Cardiac: No Chest Pain, No Edema, No Syncope Abdominal/Gastrointestinal: No Abdominal Pain, No Nausea, No Vomiting, No Diarrhea Genitourinary Symptoms: No Dysuria Musculoskeletal: No Back Pain, No Neck Pain Skin: No Rash Neurological: No Dizziness, No Focal Weakness, No Sensory Changes Psychological: No Symptoms Endocrine: No Symptoms Hematologic/Lymphatic: No Symptoms Immunological/Allergic: No Symptoms Medications & Allergies Home Medications: Home Medication List Fenofibrate 160 mg PO DAILY 12/01/16 [History Confirmed 02/19/24] Finasteride 5 mg [Proscar 5 MG] 5 mg PO DAILY 12/01/16 [History Confirmed 02/19/24] Metformin HCl 500 mg [Glucophage 500 MG] 500 mg PO BID 12/01/16 [History Confirmed 02/19/24] [place]-3 Fatty Acids/Fish Oil [Fish Oil 1,000 mg Softgel] 1 cap PO BID 12/01/16 [History Confirmed 02/19/24] Albuterol Sulfate [Proair Hfa] 8.5 gm IH Q4HPRN PRN 12/27/17 [History Confirmed 02/19/24] Amlodipine Besylate [Norvasc] 10 mg PO DAILY 12/27/17 [History Confirmed 02/19/24] Furosemide [Lasix] 40 mg PO DAILY 12/27/17 [History Confirmed 02/19/24] Potassium Chloride [Klor-Con 8] 8 meq PO DAILY 12/27/17 [History Confirmed 02/19/24] Metoprolol Succinate 50 mg [Toprol Xl 50 MG] 50 mg PO DAILY 03/23/21 [History Confirmed 02/19/24] Allergies/Adverse Reactions: Allergies Allergy/AdvReac Type Severity Reaction Status Date / Time Sulfa (Sulfonamide AdvReac Verified 02/19/24 18:48 Antibiotics) - Past Medical History Past Medical History: Yes Neurological History: No Pertinent History ENT History: Cataracts, Glaucoma Cardiac History: High Cholesterol, Hypertension Respiratory History: Sleep Apnea Endocrine Medical History: Diabetes Type II Musculoskelatal History: Arthritis GI Medical History: No Pertinent History History: Other Pyscho-Social History: No Pertinent History Male Reproductive Disorders: Prostate Problems Comment: hx of kidney stones, mass on right shoulder - Past Surgical History Past Surgical History: Yes Neuro Surgical History: No Pertinent History Cardiac History: No Pertinent History Respiratory Surgery: No Pertinent History GI Surgical History: Cholecystectomy, Hemorrhoidectomy, Hernia Repair Genitourinary Surgical Hx: No Pertinent History Musculskeletal Surgical Hx: Other Male Surgical History: Prostate Surgery Other Surgical History: tumors removed from back, cataract/lens left eye january 2017 - Social History Smoking Status: Former smoker How long have you smoked: 20 years Exposure to second hand smoke: No Alcohol: Occasionally Drug Use: none - Social Determinants of Health Will the patient participate in the screening: Declined to provide - Physical Exam Vital Signs: Vital Signs - 24 hr Temp Pulse Resp BP BP Pulse Ox 02/20/24 00:19 97 02/20/24 00:00 98 H 16 118/53 97 02/19/24 23:30 89 8 L 108/52 98 02/19/24 23:00 79 10 L 116/58 97 02/19/24 22:30 90 17 135/66 98 02/19/24 22:20 85 18 98 02/19/24 22:12 72 25 H 97 02/19/24 21:31 156/73 02/19/24 21:01 79 14 162/83 99 02/19/24 20:34 77 21 152/81 99 02/19/24 20:00 69 16 125/57 100 02/19/24 19:30 67 17 129/55 100 02/19/24 19:19 69 16 96 02/19/24 19:01 67 17 148/63 100 02/19/24 18:33 98.3 F 69 15 151/81 97 General Appearance: no apparent distress, alert Neurologic Exam: alert, oriented x 3, cooperative, normal mood/affect, nml cerebellar function, nml station & gait, sensation nml, No motor deficits Eye Exam: PERRL/EOMI, eyes nml inspection Ears, Nose, Throat Exam: normal ENT inspection, TMs normal, pharynx normal, moist mucous membranes Neck Exam: normal inspection, non-tender, supple, full range of motion Respiratory Exam: normal breath sounds, lungs clear, No respiratory distress Cardiovascular Exam: regular rate/rhythm, normal heart sounds, normal peripheral pulses Gastrointestinal/Abdomen Exam: soft, normal bowel sounds, No tenderness, No mass Back Exam: normal inspection, normal range of motion, No CVA tenderness, No vertebral tenderness Extremity Exam: normal inspection, normal range of motion, pelvis stable Skin Exam: normal color, warm, dry, No rash Lymphatic Exam: No adenopathy Results - Labs Lab/Micro Results: Lab Results-Last 24 Hours 02/19/24 02/19/24 02/19/24 Range/Units 18:45 18:45 18:45 WBC 4.7 (4.23-9.07) x10^3/uL RBC 3.84 L (4.63-6.08) x10^6/uL Hgb 10.8 L (13.7-17.5) g/dL Hct 35.2 L (40.1-51.0) % MCV 91.7 (79.0-92.2) fL MCH 28.1 (25.7-32.2) pg MCHC 30.7 L (32.3-36.5) g/dL RDW 14.1 (11.6-14.4) % Plt Count 194 (163-337) x10^3/uL MPV 9.0 L (9.4-12.4) fL Gran % 67.8 (34.0-67.9) % Immature Gran % (Auto) 0.2 (0.001-0.429) % Nucleat RBC Rel Count 0.0 (0.00-0.2) % Eos # (Auto) 0.14 (0.04-0.54) x10^3/uL Immature Gran # (Auto) 0.01 (0.001-0.031) x10^3u/L Absolute Lymphs (auto) 0.79 L (1.32-3.57) x10^3/uL Absolute Monos (auto) 0.53 (0.30-0.82) x10^3/uL Absolute Nucleated RBC 0.00 (0.00-0.012) x10^3u/L Lymphocytes % 16.8 L (21.8-53.1) % Monocytes % 11.3 (5.3-12.2) % Eosinophils % 3.0 (0.8-7.0) % Basophils % 0.9 (0.2-1.2) % Absolute Granulocytes 3.19 (1.78-5.38) x10^3/uL Basophils # 0.04 (0.01-0.08) x10^3/uL pO2/FiO2 Ratio % VBG pH (7.32-7.42) VBG pCO2 at Pat Temp (42-55) mm/Hg VBG pO2 at Pat Temp (25-40) mm/Hg VBG HCO3 (22-28) meq/L VBG O2 Sat (Christ) (95-100) VBG Base Excess (-2.0-2.0) VBG Hemoglobin VBG Carboxyhemoglobin (0.0-6.9) % T HGB POC Potassium (3.5-5.1) Sodium 140 (135-145) mmol/L Potassium 4.4 (3.5-5.1) mmol/L Chloride 101 (98-107) mmol/L Carbon Dioxide 34 H (22-30) mmol/L Anion Gap 9.8 (5-15) MEQ/L BUN 24 H (9-20) mg/dL Creatinine 0.85 (0.66-1.25) mg/dL Estimated GFR 85.7 ML/MIN Glucose 134 H (74-106) mg/dL Lactic Acid (0.4-2.0) Calcium 10.5 H (8.4-10.2) mg/dL Magnesium 1.8 (1.6-2.3) mg/dL Total Bilirubin 0.50 (0.2-1.3) mg/dL AST 19 (17-59) U/L ALT 13 (0-50) U/L Alkaline Phosphatase 52 (38-126) U/L Troponin I 0.015 (0.000-0.033) ng/mL NT-Pro-B Natriuret Pep 1390 (<300) pg/mL Serum Total Protein 6.9 (6.3-8.2) g/dL Albumin 3.9 (3.5-5.0) g/dL Influenza Type A Ag (NEGATIVE) Influenza Type B Ag (NEGATIVE) RSV (PCR) (NEGATIVE) SARS-CoV-2 (PCR) (NEGATIVE) 02/19/24 02/19/24 02/19/24 Range/Units 19:00 19:05 19:05 WBC (4.23-9.07) x10^3/uL RBC (4.63-6.08) x10^6/uL Hgb (13.7-17.5) g/dL Hct (40.1-51.0) % MCV (79.0-92.2) fL MCH (25.7-32.2) pg MCHC (32.3-36.5) g/dL RDW (11.6-14.4) % Plt Count (163-337) x10^3/uL MPV (9.4-12.4) fL Gran % (34.0-67.9) % Immature Gran % (Auto) (0.001-0.429) % Nucleat RBC Rel Count (0.00-0.2) % Eos # (Auto) (0.04-0.54) x10^3/uL Immature Gran # (Auto) (0.001-0.031) x10^3u/L Absolute Lymphs (auto) (1.32-3.57) x10^3/uL Absolute Monos (auto) (0.30-0.82) x10^3/uL Absolute Nucleated RBC (0.00-0.012) x10^3u/L Lymphocytes % (21.8-53.1) % Monocytes % (5.3-12.2) % Eosinophils % (0.8-7.0) % Basophils % (0.2-1.2) % Absolute Granulocytes (1.78-5.38) x10^3/uL Basophils # (0.01-0.08) x10^3/uL pO2/FiO2 Ratio 21.0 % VBG pH 7.35 (7.32-7.42) VBG pCO2 at Pat Temp 66 H* (42-55) mm/Hg VBG pO2 at Pat Temp 27 (25-40) mm/Hg VBG HCO3 36.4 H* (22-28) meq/L VBG O2 Sat (Christ) 47.7 L (95-100) VBG Base Excess 8.8 H (-2.0-2.0) VBG Hemoglobin 11.3 VBG Carboxyhemoglobin 3.8 (0.0-6.9) % T HGB POC Potassium 4.7 (3.5-5.1) Sodium (135-145) mmol/L Potassium (3.5-5.1) mmol/L Chloride (98-107) mmol/L Carbon Dioxide (22-30) mmol/L Anion Gap (5-15) MEQ/L BUN (9-20) mg/dL Creatinine (0.66-1.25) mg/dL Estimated GFR ML/MIN Glucose (74-106) mg/dL Lactic Acid 1.2 (0.4-2.0) Calcium (8.4-10.2) mg/dL Magnesium (1.6-2.3) mg/dL Total Bilirubin (0.2-1.3) mg/dL AST (17-59) U/L ALT (0-50) U/L Alkaline Phosphatase (38-126) U/L Troponin I (0.000-0.033) ng/mL NT-Pro-B Natriuret Pep (<300) pg/mL Serum Total Protein (6.3-8.2) g/dL Albumin (3.5-5.0) g/dL Influenza Type A Ag NEGATIVE (NEGATIVE) Influenza Type B Ag NEGATIVE (NEGATIVE) RSV (PCR) NEGATIVE (NEGATIVE) SARS-CoV-2 (PCR) NEGATIVE (NEGATIVE) 02/19/24 Range/Units 22:50 WBC (4.23-9.07) x10^3/uL RBC (4.63-6.08) x10^6/uL Hgb (13.7-17.5) g/dL Hct (40.1-51.0) % MCV (79.0-92.2) fL MCH (25.7-32.2) pg MCHC (32.3-36.5) g/dL RDW (11.6-14.4) % Plt Count (163-337) x10^3/uL MPV (9.4-12.4) fL Gran % (34.0-67.9) % Immature Gran % (Auto) (0.001-0.429) % Nucleat RBC Rel Count (0.00-0.2) % Eos # (Auto) (0.04-0.54) x10^3/uL Immature Gran # (Auto) (0.001-0.031) x10^3u/L Absolute Lymphs (auto) (1.32-3.57) x10^3/uL Absolute Monos (auto) (0.30-0.82) x10^3/uL Absolute Nucleated RBC (0.00-0.012) x10^3u/L Lymphocytes % (21.8-53.1) % Monocytes % (5.3-12.2) % Eosinophils % (0.8-7.0) % Basophils % (0.2-1.2) % Absolute Granulocytes (1.78-5.38) x10^3/uL Basophils # (0.01-0.08) x10^3/uL pO2/FiO2 Ratio % VBG pH (7.32-7.42) VBG pCO2 at Pat Temp (42-55) mm/Hg VBG pO2 at Pat Temp (25-40) mm/Hg VBG HCO3 (22-28) meq/L VBG O2 Sat (Christ) (95-100) VBG Base Excess (-2.0-2.0) VBG Hemoglobin VBG Carboxyhemoglobin (0.0-6.9) % T HGB POC Potassium (3.5-5.1) Sodium (135-145) mmol/L Potassium (3.5-5.1) mmol/L Chloride (98-107) mmol/L Carbon Dioxide (22-30) mmol/L Anion Gap (5-15) MEQ/L BUN (9-20) mg/dL Creatinine (0.66-1.25) mg/dL Estimated GFR ML/MIN Glucose (74-106) mg/dL Lactic Acid (0.4-2.0) Calcium (8.4-10.2) mg/dL Magnesium (1.6-2.3) mg/dL Total Bilirubin (0.2-1.3) mg/dL AST (17-59) U/L ALT (0-50) U/L Alkaline Phosphatase (38-126) U/L Troponin I 0.013 (0.000-0.033) ng/mL NT-Pro-B Natriuret Pep (<300) pg/mL Serum Total Protein (6.3-8.2) g/dL Albumin (3.5-5.0) g/dL Influenza Type A Ag (NEGATIVE) Influenza Type B Ag (NEGATIVE) RSV (PCR) (NEGATIVE) SARS-CoV-2 (PCR) (NEGATIVE) - Radiology Impressions Radiology Exams & Impressions: Radiology Procedures Category Date Time Status ABDOMEN AND PELVIS W CONTRAST [CT] Stat Exams 02/19/24 18:56 Completed CHEST WITH CONTRAST [CT] Stat Exams 02/19/24 18:56 Completed - Other Procedures and Tests Respiratory Therapy 02/19/24 19:18 Respiratory Therapy Assessment DAILY 02/19/24 22:34 BiPap/CPAP ROUTINE 02/19/24 22:46 Standby ROUTINE Assessment/Plan (1) SOB (shortness of breath) Current Visit: Yes Status: Acute Assessment & Plan: 1. COPD vs CHF - given lasix in the ED, duonebs and O2. 2. On Levaquin by ED 3. Will need TTE inthe AM Code(s): R06.02 - SHORTNESS OF BREATH Telemedicine Encounter - Telemedicine Encounter Telemedicine Encounter: The entirety of this encounter was performed via Telemedicine"
[2024-02-20 00:41] LABS: ADD URINE CULTURE? NO (NO); Appearance Clear (Clear); Bacteria None Seen /HPF (None Seen); Bilirubin Negative (Negative); Blood Negative (Negative); Epithelial Cells None Seen /HPF (None Seen); Glucose, Urine Negative (Negative); Hyaline Casts NONE SEEN /LPF (0-2); Ketones Negative (Negative); Leukocyte Esterase Negative (Negative); Nitrite Negative (Negative); Ph 5.5 (4.6-8.0); Protein,Urine Dip Trace (Negative); RBC 0-2 /HPF (0-5); Specific Gravity >=1.030 (1.005-1.030); Urobilinogen 0.2 mg/dL (0.2); WBC 0-2 /HPF (0-5)
[2024-02-20 04:17] LABS: ALBUMIN 3.6 g/dL (3.5-5.0); ANION GAP 8.6 MEQ/L (5-15); BILIRUBIN,TOTAL 0.6 mg/dL (0.2-1.3); Calcium 9.9 mg/dL (8.4-10.2); Creatinine 1 0.79 mg/dL (0.66-1.25); EST GLOMERULAR FILTRATION RATE 87.6 ML/MIN; Potassium 4.6 mmol/L (3.5-5.1); Total Protein 6.2 g/dL (6.3-8.2)
[2024-02-20 04:43] LABS: Absolute Neutrophil Ct (ANC) 2.68 x10^3/uL (1.78-5.38); BASOPHIL % 0.3 % (0.2-1.2); Basophil (Absolute #) 0.01 x10^3/uL (0.01-0.08); Eosinophil % 0.3 % (0.8-7.0); Eosinophil (Absolute #) 0.01 x10^3/uL (0.04-0.54); Hematocrit 33.9 % (40.1-51.0); Hemoglobin 10.5 g/dL (13.7-17.5); IMMATURE GRAN # 0.02 x10^3u/L (0.001-0.031); IMMATURE GRAN % 0.7 % (0.001-0.429); Lymphocyte (Absolute #) 0.28 x10^3/uL (1.32-3.57); Lymphocytes % 9.2 % (21.8-53.1); Mean Cell Volume 91.9 fL (79.0-92.2); Mean Corpuscular Hemoglobin 28.5 pg (25.7-32.2); Mean Platelet Volume 9.1 fL (9.4-12.4); Monocyte (Absolute #) 0.03 x10^3/uL (0.30-0.82); Neutrophil % 88.5 % (34.0-67.9); Platelet Count 189 x10^3/uL (163-337); Red Blood Count 3.69 x10^6/uL (4.63-6.08)
[2024-02-20 07:16] LABS: Slide Review 1 YES
[2024-02-20] MEDS ORDERED: Glucophage 500 MG PO SCH (08:00)
[2024-02-20] MEDS: Lasix 40 MG/4 ML IV SCH (08:26)
[2024-02-20] MEDS: ROCEPHIN 1 GM / 100 ML NaCl 1 GM/100 ML IVPB IV SCH (10:48)
[2024-02-20] MEDS: NORVASC 5 MG PO SCH (10:48)
[2024-02-20] MEDS: Tricor 145 MG PO SCH (10:48)
[2024-02-20] MEDS: Toprol Xl 50 MG PO SCH (10:48)
[2024-02-20] MEDS: Proscar 5 MG PO SCH (10:49)
[2024-02-20] MEDS: solu-MEDROL 40 MG, Sterile H2O 10 ml 1 ML IV SCH (10:49)
[2024-02-20] MEDS: Zithromax 500 MG/ 250 ML NaCl Premix 500 MG/250 ML IVPB IV SCH (11:30)
--- NOTE | 2024-02-20 13:13 | PCM.NOTE ---
Mr. Christina is an 83 year old with a pmhx of HLD, HTN, KAILEE, DMII, COPD, CHF, and BPH who presented to ED 02/19/24 with complaints of progressive shortness of breath. Patient was diagnosed by ED three week ago with pneumonia and was treated OP with one week of Cefdinir. Patient reports that he did not improve with abx therapy and was prompted to report to ED when he was unable to catch hi s breath sitting up which had been helping. CT of the chest was performed showing Bilateral moderate pleural effusion is noted with patches of consolidation/collapse in both lower lobes. Moderate cardiomegaly. Appearances may be secondary to acute infectious disease process/fluid overload secondary to a cardiogenic cause. Patient received a dose of levaquin in the ED. Lab findings unremarkable. Patient also following with podiatry for cellulitis of the LLE with wound culture showing stentrophomonas maltophilis sensitive to levaquin. Plan to continue levaquin for coverage of both the wound culture and and any underlying pneumonia. Patient is baseline on RA, now on 4L oxygen. He states dyspnea has improved. No cough. Upon exam patient with noted BLE edema +2 pitting, diminished lung sounds with exp wheezing. Will start solumedrol and lasix. Patient most likely will need a few days of diuresis. Will continue BIPAP QHS. Echo pending -pre-allen tech review showing AI, MR, TR with estimated EF at 59%. Additional dx - problem list updated Acute respiratory failure with hypoxia -secondary to CHF/copd exacerbation, possible pneumonia -ABG/BIPAP as needed Pneumonia -Continue Levaquin -Supplemental oxygen with goal spo2 88-92% - RT to qualify for home oxygen Cellulitis LLE -Podiatry following, culture with stentrophomonas maltophilis sensitive to levaquin- will continue COPD exac -Supplemental oxygen with goal spo2 >88-92% -add advair/albuterol/duonebs -solumedrol -titrate -levaquin Pleural effusion -no echo on file - will obtain, pt unsure of cardiac history -Echo pending -pre-allen tech review showing AI, MR, TR with estimated EF at 59% -BNP elevated at 1390 -consider cardiac consult if new onset HTN -stable, continue home meds KAILEE -continue BIPAP at night BPH -continue proscar DMII -SSI, hold metformin -ADA diet -A1c at 5.61 -monitor blood glucose carefully in the setting of steroids
[2024-02-20] MEDS: Klor Con PO SCH (14:55)
--- NOTE | 2024-02-20 16:32 | PCM.CONS ---
Podiatry HPI - Consult Date of Consultation Date: 02/20/24 Reason for Consult: cellulitis left lower extremity, venous insufficency Consulting Provider: MYRNA MILLER DPM - [facility] History of Present Illness: Victoriano is a very pleasant 83 year old male who presents today with a significant past medical hx of CHF, COPD, HLD, and type 2 diabetes with venous insufficiency and recent hx of cellulitis to the left foot. Patient was sent by his PCP for concerns over a possible fungal infection. Patient presents with a a 2 weeks history of increased shortness of breath. He did present to the emergency department on 02/02/2024 for an exacerbation and this has somewhat resolved as of last week but worsened over the last several days. He does have significant amount of edema to the bliateral lower extremity. There is drainage noted to the left foot between web spaces 2-3 without obvious ulceration full thickness disruption. Cellulitis appears to be improving from outpatient setting with use of compression therapy. Medications & Allergies Home Medications: Home Medication List Fenofibrate 160 mg PO DAILY 12/01/16 [History Confirmed 02/19/24] Finasteride 5 mg [Proscar 5 MG] 5 mg PO DAILY 12/01/16 [History Confirmed 02/19/24] Metformin HCl 500 mg [Glucophage 500 MG] 500 mg PO BID 12/01/16 [History Confirmed 02/19/24] Oxford-3 Fatty Acids/Fish Oil [Fish Oil 1,000 mg Softgel] 1 cap PO BID 12/01/16 [History Confirmed 02/19/24] Albuterol Sulfate [Proair Hfa] 8.5 gm IH Q4HPRN PRN 12/27/17 [History Confirmed 02/19/24] Amlodipine Besylate [Norvasc] 10 mg PO DAILY 12/27/17 [History Confirmed 02/19/24] Furosemide [Lasix] 40 mg PO DAILY 12/27/17 [History Confirmed 02/19/24] Potassium Chloride [Klor-Con 8] 8 meq PO DAILY 12/27/17 [History Confirmed 02/19/24] Metoprolol Succinate 50 mg [Toprol Xl 50 MG] 50 mg PO DAILY 03/23/21 [History Confirmed 02/19/24] Allergies/Adverse Reactions: Allergies Allergy/AdvReac Type Severity Reaction Status Date / Time Sulfa (Sulfonamide AdvReac Verified 02/19/24 18:48 Antibiotics) - Past Medical History Past Medical History: Yes Neurological History: No Pertinent History ENT History: Cataracts, Glaucoma Cardiac History: High Cholesterol, Hypertension Respiratory History: Sleep Apnea Endocrine Medical History: Diabetes Type II Musculoskelatal History: Arthritis GI Medical History: No Pertinent History History: Other Pyscho-Social History: No Pertinent History Male Reproductive Disorders: Prostate Problems Comment: hx of kidney stones, mass on right shoulder - Past Surgical History Past Surgical History: Yes Neuro Surgical History: No Pertinent History Cardiac History: No Pertinent History Respiratory Surgery: No Pertinent History GI Surgical History: Cholecystectomy, Hemorrhoidectomy, Hernia Repair Genitourinary Surgical Hx: No Pertinent History Musculskeletal Surgical Hx: Other Male Surgical History: Prostate Surgery Other Surgical History: tumors removed from back, cataract/lens left eye january 2017 - Social History Smoking Status: Former smoker How long have you smoked: 20 years Exposure to second hand smoke: No Alcohol: Occasionally Drug Use: none - Social Determinants of Health Will the patient participate in the screening: Declined to provide Physical Exam - General General Appearance: no apparent distress - Neuro Neurologic: Epicritic and protopathic - Vascular Peripheral Pulses: Posterior tibialis: 2+, Dorsalis-Pedis: 2+ Capillary Refill Time: < 3 seconds Edema Degree: 2+ Skin: Supple, not atrophic - Narrative Narrative Physical Exam: Podiatry Physical Exam Results - Labs Lab/Micro Results: Lab Results-Last 24 Hours 02/19/24 02/19/24 02/19/24 Range/Units 18:45 18:45 18:45 WBC 4.7 (4.23-9.07) x10^3/uL RBC 3.84 L (4.63-6.08) x10^6/uL Hgb 10.8 L (13.7-17.5) g/dL Hct 35.2 L (40.1-51.0) % MCV 91.7 (79.0-92.2) fL MCH 28.1 (25.7-32.2) pg MCHC 30.7 L (32.3-36.5) g/dL RDW 14.1 (11.6-14.4) % Plt Count 194 (163-337) x10^3/uL MPV 9.0 L (9.4-12.4) fL Gran % 67.8 (34.0-67.9) % Immature Gran % (Auto) 0.2 (0.001-0.429) % Nucleat RBC Rel Count 0.0 (0.00-0.2) % Eos # (Auto) 0.14 (0.04-0.54) x10^3/uL Immature Gran # (Auto) 0.01 (0.001-0.031) x10^3u/L Absolute Lymphs (auto) 0.79 L (1.32-3.57) x10^3/uL Absolute Monos (auto) 0.53 (0.30-0.82) x10^3/uL Absolute Nucleated RBC 0.00 (0.00-0.012) x10^3u/L Lymphocytes % 16.8 L (21.8-53.1) % Monocytes % 11.3 (5.3-12.2) % Eosinophils % 3.0 (0.8-7.0) % Basophils % 0.9 (0.2-1.2) % Absolute Granulocytes 3.19 (1.78-5.38) x10^3/uL Basophils # 0.04 (0.01-0.08) x10^3/uL pO2/FiO2 Ratio % VBG pH (7.32-7.42) VBG pCO2 at Pat Temp (42-55) mm/Hg VBG pO2 at Pat Temp (25-40) mm/Hg VBG HCO3 (22-28) meq/L VBG O2 Sat (Christ) (95-100) VBG Base Excess (-2.0-2.0) VBG Hemoglobin VBG Carboxyhemoglobin (0.0-6.9) % T HGB POC Potassium (3.5-5.1) Sodium 140 (135-145) mmol/L Potassium 4.4 (3.5-5.1) mmol/L Chloride 101 (98-107) mmol/L Carbon Dioxide 34 H (22-30) mmol/L Anion Gap 9.8 (5-15) MEQ/L BUN 24 H (9-20) mg/dL Creatinine 0.85 (0.66-1.25) mg/dL Estimated GFR 85.7 ML/MIN Glucose 134 H (74-106) mg/dL POC Glucometer (74 to 106) mg/dL Hemoglobin A1c (4.5-6.0) % Lactic Acid (0.4-2.0) Calcium 10.5 H (8.4-10.2) mg/dL Magnesium 1.8 (1.6-2.3) mg/dL Total Bilirubin 0.50 (0.2-1.3) mg/dL AST 19 (17-59) U/L ALT 13 (0-50) U/L Alkaline Phosphatase 52 (38-126) U/L Troponin I 0.015 (0.000-0.033) ng/mL NT-Pro-B Natriuret Pep 1390 (<300) pg/mL Serum Total Protein 6.9 (6.3-8.2) g/dL Albumin 3.9 (3.5-5.0) g/dL Procalcitonin (0.030-0.080) ng/mL Urine Color (Yellow) Urine Appearance (Clear) Urine pH (4.6-8.0) Ur Specific [place] (1.005-1.030) Urine Protein (Negative) Urine Glucose (UA) (Negative) mg/dL Urine Ketones (Negative) Urine Blood (Negative) Urine Nitrite (Negative) Urine Bilirubin (Negative) Urine Urobilinogen (0.2) mg/dL Ur Leukocyte Esterase (Negative) U Hyaline Cast (Auto) (0-2) /LPF Urine Microscopic RBC (0-5) /HPF Urine Microscopic WBC (0-5) /HPF Ur Epithelial Cells (None Seen) /HPF Urine Bacteria (None Seen) /HPF Urine Culture Reflexed (NO) Influenza Type A Ag (NEGATIVE) Influenza Type B Ag (NEGATIVE) RSV (PCR) (NEGATIVE) SARS-CoV-2 (PCR) (NEGATIVE) Slides for Path Review 02/19/24 02/19/24 02/19/24 Range/Units 19:00 19:05 19:05 WBC (4.23-9.07) x10^3/uL RBC (4.63-6.08) x10^6/uL Hgb (13.7-17.5) g/dL Hct (40.1-51.0) % MCV (79.0-92.2) fL MCH (25.7-32.2) pg MCHC (32.3-36.5) g/dL RDW (11.6-14.4) % Plt Count (163-337) x10^3/uL MPV (9.4-12.4) fL Gran % (34.0-67.9) % Immature Gran % (Auto) (0.001-0.429) % Nucleat RBC Rel Count (0.00-0.2) % Eos # (Auto) (0.04-0.54) x10^3/uL Immature Gran # (Auto) (0.001-0.031) x10^3u/L Absolute Lymphs (auto) (1.32-3.57) x10^3/uL Absolute Monos (auto) (0.30-0.82) x10^3/uL Absolute Nucleated RBC (0.00-0.012) x10^3u/L Lymphocytes % (21.8-53.1) % Monocytes % (5.3-12.2) % Eosinophils % (0.8-7.0) % Basophils % (0.2-1.2) % Absolute Granulocytes (1.78-5.38) x10^3/uL Basophils # (0.01-0.08) x10^3/uL pO2/FiO2 Ratio 21.0 % VBG pH 7.35 (7.32-7.42) VBG pCO2 at Pat Temp 66 H* (42-55) mm/Hg VBG pO2 at Pat Temp 27 (25-40) mm/Hg VBG HCO3 36.4 H* (22-28) meq/L VBG O2 Sat (Christ) 47.7 L (95-100) VBG Base Excess 8.8 H (-2.0-2.0) VBG Hemoglobin 11.3 VBG Carboxyhemoglobin 3.8 (0.0-6.9) % T HGB POC Potassium 4.7 (3.5-5.1) Sodium (135-145) mmol/L Potassium (3.5-5.1) mmol/L Chloride (98-107) mmol/L Carbon Dioxide (22-30) mmol/L Anion Gap (5-15) MEQ/L BUN (9-20) mg/dL Creatinine (0.66-1.25) mg/dL Estimated GFR ML/MIN Glucose (74-106) mg/dL POC Glucometer (74 to 106) mg/dL Hemoglobin A1c (4.5-6.0) % Lactic Acid 1.2 (0.4-2.0) Calcium (8.4-10.2) mg/dL Magnesium (1.6-2.3) mg/dL Total Bilirubin (0.2-1.3) mg/dL AST (17-59) U/L ALT (0-50) U/L Alkaline Phosphatase (38-126) U/L Troponin I (0.000-0.033) ng/mL NT-Pro-B Natriuret Pep (<300) pg/mL Serum Total Protein (6.3-8.2) g/dL Albumin (3.5-5.0) g/dL Procalcitonin (0.030-0.080) ng/mL Urine Color (Yellow) Urine Appearance (Clear) Urine pH (4.6-8.0) Ur Specific [place] (1.005-1.030) Urine Protein (Negative) Urine Glucose (UA) (Negative) mg/dL Urine Ketones (Negative) Urine Blood (Negative) Urine Nitrite (Negative) Urine Bilirubin (Negative) Urine Urobilinogen (0.2) mg/dL Ur Leukocyte Esterase (Negative) U Hyaline Cast (Auto) (0-2) /LPF Urine Microscopic RBC (0-5) /HPF Urine Microscopic WBC (0-5) /HPF Ur Epithelial Cells (None Seen) /HPF Urine Bacteria (None Seen) /HPF Urine Culture Reflexed (NO) Influenza Type A Ag NEGATIVE (NEGATIVE) Influenza Type B Ag NEGATIVE (NEGATIVE) RSV (PCR) NEGATIVE (NEGATIVE) SARS-CoV-2 (PCR) NEGATIVE (NEGATIVE) Slides for Path Review 02/19/24 02/20/24 02/20/24 Range/Units 22:50 00:31 03:52 WBC (4.23-9.07) x10^3/uL RBC (4.63-6.08) x10^6/uL Hgb (13.7-17.5) g/dL Hct (40.1-51.0) % MCV (79.0-92.2) fL MCH (25.7-32.2) pg MCHC (32.3-36.5) g/dL RDW (11.6-14.4) % Plt Count (163-337) x10^3/uL MPV (9.4-12.4) fL Gran % (34.0-67.9) % Immature Gran % (Auto) (0.001-0.429) % Nucleat RBC Rel Count (0.00-0.2) % Eos # (Auto) (0.04-0.54) x10^3/uL Immature Gran # (Auto) (0.001-0.031) x10^3u/L Absolute Lymphs (auto) (1.32-3.57) x10^3/uL Absolute Monos (auto) (0.30-0.82) x10^3/uL Absolute Nucleated RBC (0.00-0.012) x10^3u/L Lymphocytes % (21.8-53.1) % Monocytes % (5.3-12.2) % Eosinophils % (0.8-7.0) % Basophils % (0.2-1.2) % Absolute Granulocytes (1.78-5.38) x10^3/uL Basophils # (0.01-0.08) x10^3/uL pO2/FiO2 Ratio % VBG pH (7.32-7.42) VBG pCO2 at Pat Temp (42-55) mm/Hg VBG pO2 at Pat Temp (25-40) mm/Hg VBG HCO3 (22-28) meq/L VBG O2 Sat (Christ) (95-100) VBG Base Excess (-2.0-2.0) VBG Hemoglobin VBG Carboxyhemoglobin (0.0-6.9) % T HGB POC Potassium (3.5-5.1) Sodium (135-145) mmol/L Potassium (3.5-5.1) mmol/L Chloride (98-107) mmol/L Carbon Dioxide (22-30) mmol/L Anion Gap (5-15) MEQ/L BUN (9-20) mg/dL Creatinine (0.66-1.25) mg/dL Estimated GFR ML/MIN Glucose (74-106) mg/dL POC Glucometer (74 to 106) mg/dL Hemoglobin A1c (4.5-6.0) % Lactic Acid (0.4-2.0) Calcium (8.4-10.2) mg/dL Magnesium (1.6-2.3) mg/dL Total Bilirubin (0.2-1.3) mg/dL AST (17-59) U/L ALT (0-50) U/L Alkaline Phosphatase (38-126) U/L Troponin I 0.013 0.026 (0.000-0.033) ng/mL NT-Pro-B Natriuret Pep (<300) pg/mL Serum Total Protein (6.3-8.2) g/dL Albumin (3.5-5.0) g/dL Procalcitonin (0.030-0.080) ng/mL Urine Color Yellow (Yellow) Urine Appearance Clear (Clear) Urine pH 5.5 (4.6-8.0) Ur Specific [place] >=1.030 A (1.005-1.030) Urine Protein Trace A (Negative) Urine Glucose (UA) Negative (Negative) mg/dL Urine Ketones Negative (Negative) Urine Blood Negative (Negative) Urine Nitrite Negative (Negative) Urine Bilirubin Negative (Negative) Urine Urobilinogen 0.2 (0.2) mg/dL Ur Leukocyte Esterase Negative (Negative) U Hyaline Cast (Auto) NONE SEEN (0-2) /LPF Urine Microscopic RBC 0-2 (0-5) /HPF Urine Microscopic WBC 0-2 (0-5) /HPF Ur Epithelial Cells None Seen (None Seen) /HPF Urine Bacteria None Seen (None Seen) /HPF Urine Culture Reflexed NO (NO) Influenza Type A Ag (NEGATIVE) Influenza Type B Ag (NEGATIVE) RSV (PCR) (NEGATIVE) SARS-CoV-2 (PCR) (NEGATIVE) Slides for Path Review 02/20/24 02/20/24 02/20/24 Range/Units 03:52 03:52 03:52 WBC 3.0 L (4.23-9.07) x10^3/uL RBC 3.69 L (4.63-6.08) x10^6/uL Hgb 10.5 L (13.7-17.5) g/dL Hct 33.9 L (40.1-51.0) % MCV 91.9 (79.0-92.2) fL MCH 28.5 (25.7-32.2) pg MCHC 31.0 L (32.3-36.5) g/dL RDW 14.0 (11.6-14.4) % Plt Count 189 (163-337) x10^3/uL MPV 9.1 L (9.4-12.4) fL Gran % 88.5 H (34.0-67.9) % Immature Gran % (Auto) 0.7 H (0.001-0.429) % Nucleat RBC Rel Count 0.0 (0.00-0.2) % Eos # (Auto) 0.01 L (0.04-0.54) x10^3/uL Immature Gran # (Auto) 0.02 (0.001-0.031) x10^3u/L Absolute Lymphs (auto) 0.28 L (1.32-3.57) x10^3/uL Absolute Monos (auto) 0.03 L (0.30-0.82) x10^3/uL Absolute Nucleated RBC 0.00 (0.00-0.012) x10^3u/L Lymphocytes % 9.2 L (21.8-53.1) % Monocytes % 1.0 L (5.3-12.2) % Eosinophils % 0.3 L (0.8-7.0) % Basophils % 0.3 (0.2-1.2) % Absolute Granulocytes 2.68 (1.78-5.38) x10^3/uL Basophils # 0.01 (0.01-0.08) x10^3/uL pO2/FiO2 Ratio % VBG pH (7.32-7.42) VBG pCO2 at Pat Temp (42-55) mm/Hg VBG pO2 at Pat Temp (25-40) mm/Hg VBG HCO3 (22-28) meq/L VBG O2 Sat (Christ) (95-100) VBG Base Excess (-2.0-2.0) VBG Hemoglobin VBG Carboxyhemoglobin (0.0-6.9) % T HGB POC Potassium (3.5-5.1) Sodium 140 (135-145) mmol/L Potassium 4.6 (3.5-5.1) mmol/L Chloride 102 (98-107) mmol/L Carbon Dioxide 33 H (22-30) mmol/L Anion Gap 8.6 (5-15) MEQ/L BUN 22 H (9-20) mg/dL Creatinine 0.79 (0.66-1.25) mg/dL Estimated GFR 87.6 ML/MIN Glucose 155 H (74-106) mg/dL POC Glucometer (74 to 106) mg/dL Hemoglobin A1c (4.5-6.0) % Lactic Acid (0.4-2.0) Calcium 9.9 (8.4-10.2) mg/dL Magnesium (1.6-2.3) mg/dL Total Bilirubin 0.60 (0.2-1.3) mg/dL AST 26 (17-59) U/L ALT 17 (0-50) U/L Alkaline Phosphatase 54 (38-126) U/L Troponin I (0.000-0.033) ng/mL NT-Pro-B Natriuret Pep (<300) pg/mL Serum Total Protein 6.2 L (6.3-8.2) g/dL Albumin 3.6 (3.5-5.0) g/dL Procalcitonin 0.058 (0.030-0.080) ng/mL Urine Color (Yellow) Urine Appearance (Clear) Urine pH (4.6-8.0) Ur Specific [place] (1.005-1.030) Urine Protein (Negative) Urine Glucose (UA) (Negative) mg/dL Urine Ketones (Negative) Urine Blood (Negative) Urine Nitrite (Negative) Urine Bilirubin (Negative) Urine Urobilinogen (0.2) mg/dL Ur Leukocyte Esterase (Negative) U Hyaline Cast (Auto) (0-2) /LPF Urine Microscopic RBC (0-5) /HPF Urine Microscopic WBC (0-5) /HPF Ur Epithelial Cells (None Seen) /HPF Urine Bacteria (None Seen) /HPF Urine Culture Reflexed (NO) Influenza Type A Ag (NEGATIVE) Influenza Type B Ag (NEGATIVE) RSV (PCR) (NEGATIVE) SARS-CoV-2 (PCR) (NEGATIVE) Slides for Path Review YES 02/20/24 02/20/24 02/20/24 Range/Units 03:52 06:59 11:31 WBC (4.23-9.07) x10^3/uL RBC (4.63-6.08) x10^6/uL Hgb (13.7-17.5) g/dL Hct (40.1-51.0) % MCV (79.0-92.2) fL MCH (25.7-32.2) pg MCHC (32.3-36.5) g/dL RDW (11.6-14.4) % Plt Count (163-337) x10^3/uL MPV (9.4-12.4) fL Gran % (34.0-67.9) % Immature Gran % (Auto) (0.001-0.429) % Nucleat RBC Rel Count (0.00-0.2) % Eos # (Auto) (0.04-0.54) x10^3/uL Immature Gran # (Auto) (0.001-0.031) x10^3u/L Absolute Lymphs (auto) (1.32-3.57) x10^3/uL Absolute Monos (auto) (0.30-0.82) x10^3/uL Absolute Nucleated RBC (0.00-0.012) x10^3u/L Lymphocytes % (21.8-53.1) % Monocytes % (5.3-12.2) % Eosinophils % (0.8-7.0) % Basophils % (0.2-1.2) % Absolute Granulocytes (1.78-5.38) x10^3/uL Basophils # (0.01-0.08) x10^3/uL pO2/FiO2 Ratio % VBG pH (7.32-7.42) VBG pCO2 at Pat Temp (42-55) mm/Hg VBG pO2 at Pat Temp (25-40) mm/Hg VBG HCO3 (22-28) meq/L VBG O2 Sat (Christ) (95-100) VBG Base Excess (-2.0-2.0) VBG Hemoglobin VBG Carboxyhemoglobin (0.0-6.9) % T HGB POC Potassium (3.5-5.1) Sodium (135-145) mmol/L Potassium (3.5-5.1) mmol/L Chloride (98-107) mmol/L Carbon Dioxide (22-30) mmol/L Anion Gap (5-15) MEQ/L BUN (9-20) mg/dL Creatinine (0.66-1.25) mg/dL Estimated GFR ML/MIN Glucose (74-106) mg/dL POC Glucometer 131 H 141 H (74 to 106) mg/dL Hemoglobin A1c 5.61 (4.5-6.0) % Lactic Acid (0.4-2.0) Calcium (8.4-10.2) mg/dL Magnesium (1.6-2.3) mg/dL Total Bilirubin (0.2-1.3) mg/dL AST (17-59) U/L ALT (0-50) U/L Alkaline Phosphatase (38-126) U/L Troponin I (0.000-0.033) ng/mL NT-Pro-B Natriuret Pep (<300) pg/mL Serum Total Protein (6.3-8.2) g/dL Albumin (3.5-5.0) g/dL Procalcitonin (0.030-0.080) ng/mL Urine Color (Yellow) Urine Appearance (Clear) Urine pH (4.6-8.0) Ur Specific [place] (1.005-1.030) Urine Protein (Negative) Urine Glucose (UA) (Negative) mg/dL Urine Ketones (Negative) Urine Blood (Negative) Urine Nitrite (Negative) Urine Bilirubin (Negative) Urine Urobilinogen (0.2) mg/dL Ur Leukocyte Esterase (Negative) U Hyaline Cast (Auto) (0-2) /LPF Urine Microscopic RBC (0-5) /HPF Urine Microscopic WBC (0-5) /HPF Ur Epithelial Cells (None Seen) /HPF Urine Bacteria (None Seen) /HPF Urine Culture Reflexed (NO) Influenza Type A Ag (NEGATIVE) Influenza Type B Ag (NEGATIVE) RSV (PCR) (NEGATIVE) SARS-CoV-2 (PCR) (NEGATIVE) Slides for Path Review 02/20/24 Range/Units 15:52 WBC (4.23-9.07) x10^3/uL RBC (4.63-6.08) x10^6/uL Hgb (13.7-17.5) g/dL Hct (40.1-51.0) % MCV (79.0-92.2) fL MCH (25.7-32.2) pg MCHC (32.3-36.5) g/dL RDW (11.6-14.4) % Plt Count (163-337) x10^3/uL MPV (9.4-12.4) fL Gran % (34.0-67.9) % Immature Gran % (Auto) (0.001-0.429) % Nucleat RBC Rel Count (0.00-0.2) % Eos # (Auto) (0.04-0.54) x10^3/uL Immature Gran # (Auto) (0.001-0.031) x10^3u/L Absolute Lymphs (auto) (1.32-3.57) x10^3/uL Absolute Monos (auto) (0.30-0.82) x10^3/uL Absolute Nucleated RBC (0.00-0.012) x10^3u/L Lymphocytes % (21.8-53.1) % Monocytes % (5.3-12.2) % Eosinophils % (0.8-7.0) % Basophils % (0.2-1.2) % Absolute Granulocytes (1.78-5.38) x10^3/uL Basophils # (0.01-0.08) x10^3/uL pO2/FiO2 Ratio % VBG pH (7.32-7.42) VBG pCO2 at Pat Temp (42-55) mm/Hg VBG pO2 at Pat Temp (25-40) mm/Hg VBG HCO3 (22-28) meq/L VBG O2 Sat (Christ) (95-100) VBG Base Excess (-2.0-2.0) VBG Hemoglobin VBG Carboxyhemoglobin (0.0-6.9) % T HGB POC Potassium (3.5-5.1) Sodium (135-145) mmol/L Potassium (3.5-5.1) mmol/L Chloride (98-107) mmol/L Carbon Dioxide (22-30) mmol/L Anion Gap (5-15) MEQ/L BUN (9-20) mg/dL Creatinine (0.66-1.25) mg/dL Estimated GFR ML/MIN Glucose (74-106) mg/dL POC Glucometer 140 H (74 to 106) mg/dL Hemoglobin A1c (4.5-6.0) % Lactic Acid (0.4-2.0) Calcium (8.4-10.2) mg/dL Magnesium (1.6-2.3) mg/dL Total Bilirubin (0.2-1.3) mg/dL AST (17-59) U/L ALT (0-50) U/L Alkaline Phosphatase (38-126) U/L Troponin I (0.000-0.033) ng/mL NT-Pro-B Natriuret Pep (<300) pg/mL Serum Total Protein (6.3-8.2) g/dL Albumin (3.5-5.0) g/dL Procalcitonin (0.030-0.080) ng/mL Urine Color (Yellow) Urine Appearance (Clear) Urine pH (4.6-8.0) Ur Specific [place] (1.005-1.030) Urine Protein (Negative) Urine Glucose (UA) (Negative) mg/dL Urine Ketones (Negative) Urine Blood (Negative) Urine Nitrite (Negative) Urine Bilirubin (Negative) Urine Urobilinogen (0.2) mg/dL Ur Leukocyte Esterase (Negative) U Hyaline Cast (Auto) (0-2) /LPF Urine Microscopic RBC (0-5) /HPF Urine Microscopic WBC (0-5) /HPF Ur Epithelial Cells (None Seen) /HPF Urine Bacteria (None Seen) /HPF Urine Culture Reflexed (NO) Influenza Type A Ag (NEGATIVE) Influenza Type B Ag (NEGATIVE) RSV (PCR) (NEGATIVE) SARS-CoV-2 (PCR) (NEGATIVE) Slides for Path Review Accuchecks Date 02/20/24 Date 02/20/24 - Radiology Impressions Radiology Exams & Impressions: Radiology Procedures Category Date Time Status ABDOMEN AND PELVIS W CONTRAST [CT] Stat Exams 02/19/24 18:56 Completed CHEST WITH CONTRAST [CT] Stat Exams 02/19/24 18:56 Completed ECHO W/2D AND DOPPLER [US] Urgent Exams 02/20/24 08:11 Taken - Other Procedures and Tests Respiratory Therapy 02/19/24 19:18 Respiratory Therapy Assessment DAILY 02/19/24 22:34 BiPap/CPAP ROUTINE 02/20/24 02:31 Oxygen Nasal Cannula 4 lpm 02/20/24 07:47 Incentive Spirometry UD 02/20/24 13:30 Respiratory MDI BID Assessment/Plan (1) Left leg cellulitis Current Visit: No Status: Acute Assessment & Plan: Initial patient examination and evaluation Patients clinical presentation is more consistent with venous insufficiency with ulceration over dorsal aspect of foot with recent exacerbation to CHF At this time, serous fluid and fibrotic tissue removed revealing partial thickness ulceration between to the 2nd and 3rd digits with consistent cellulitis to the foot. This was cultured demonstrating strentrophonmonas maltophilis. This is sensitive to Levaquin Patient started on cefdinir on 02/02/2024 failed outpatient therapy for cellulitis Will proceed with compression therapy consisting of unna boot bilateral lower extremity, iodine paint between toes. Will follow closely Nail care will be provided tomorrow. Code(s): L03.116 - CELLULITIS OF LEFT LOWER LIMB (2) Type 2 diabetes mellitus Current Visit: No Status: Acute (3) Pleural effusion Current Visit: No Status: Acute Code(s): J90 - PLEURAL EFFUSION, NOT ELSEWHERE CLASSIFIED (4) CHF exacerbation Current Visit: No Status: Acute Code(s): I50.9 - HEART FAILURE, UNSPECIFIED (5) COPD exacerbation Current Visit: No Status: Acute Code(s): J44.1 - CHRONIC OBSTRUCTIVE PULMONARY DISEASE W (ACUTE) EXACERBATION (6) HTN (hypertension) Current Visit: No Status: Acute Code(s): I10 - ESSENTIAL (PRIMARY) HYPERTENSION (7) Weakness Current Visit: No Status: Acute Onset Date: ~04/06/18 Code(s): R53.1 - WEAKNESS
[2024-02-20] MEDS: Zofran 4 MG/2 ML VIAL IV PRN (17:26)
[2024-02-20] MEDS: Advair Hfa 230/21 Mcg COMMON CANISTER IH SCH (20:04)
[2024-02-21 08:14] LABS: Absolute Neutrophil Ct (ANC) 5.08 x10^3/uL (1.78-5.38); BASOPHIL % 0.2 % (0.2-1.2); Basophil (Absolute #) 0.01 x10^3/uL (0.01-0.08); Eosinophil (Absolute #) 0 x10^3/uL (0.04-0.54); Hemoglobin 10.4 g/dL (13.7-17.5); IMMATURE GRAN # 0.03 x10^3u/L (0.001-0.031); IMMATURE GRAN % 0.5 % (0.001-0.429); Lymphocyte (Absolute #) 0.54 x10^3/uL (1.32-3.57); Mean Cell Volume 94.3 fL (79.0-92.2); Mean Corpuscular Hgb Concent. 29.7 g/dL (32.3-36.5); Mean Platelet Volume 8.8 fL (9.4-12.4); Monocyte (Absolute #) 0.35 x10^3/uL (0.30-0.82); Monocytes % 5.8 % (5.3-12.2); Neutrophil % 84.5 % (34.0-67.9); Platelet Count 211 x10^3/uL (163-337); Red Blood Count 3.71 x10^6/uL (4.63-6.08)
[2024-02-21 08:27] LABS: ALBUMIN 3.9 g/dL (3.5-5.0); ANION GAP 8.3 MEQ/L (5-15); BILIRUBIN,TOTAL 0.3 mg/dL (0.2-1.3); Calcium 10.3 mg/dL (8.4-10.2); Creatinine 1 1.05 mg/dL (0.66-1.25); Potassium 5.1 mmol/L (3.5-5.1); Total Protein 6.8 g/dL (6.3-8.2)
[2024-02-21] MEDS ORDERED: NON-FORMULARY ITEM (Potassium Chloride [Klor-Con 8] 8 MEQ Tablet.Er) PO SCH (10:00)
[2024-02-21] MEDS: LEVOFLOXACIN 750MG/150ML D5W 750 MG/150 ML BAG IV SCH (10:29)
[2024-02-21 10:54] LABS: Slide Review 1 YES
--- NOTE | 2024-02-21 11:55 | PCM.NOTE ---
Date and Time: 02/21/24 1149 Subjective Assessment: Mr. Christina is an 83 year old with a pmhx of HLD, HTN, KAILEE, DMII, COPD, CHF, and BPH who presented to ED 02/19/24 with complaints of progressive shortness of breath. Patient was diagnosed by ED three week ago with pneumonia and was treated OP with one week of Cefdinir. Patient reports that he did not improve with abx therapy and was prompted to report to ED when he was unable to catch his breath sitting up which had been helping. CT of the chest was performed showing Bilateral moderate pleural effusion is noted with patches of consolidation/collapse in both lower lobes. Moderate cardiomegaly. Appearances may be secondary to acute infectious disease process/fluid overload secondary to a cardiogenic cause. Patient received a dose of levaquin in the ED. Lab findings unremarkable. Patient also following with podiatry for cellulitis of the LLE with wound culture showing stentrophomonas maltophilis sensitive to levaquin. Plan to continue levaquin for coverage of both the wound culture and and any underlying pneumonia. Patient is baseline on RA, now on 4L oxygen. He states dyspnea has improved. No cough. Upon exam patient with noted BLE edema +2 pitting, diminished lung sounds with exp wheezing. Will start solumedrol and lasix. Patient most likely will need a few days of diuresis. Will continue BIPAP QHS. Echo pending -pre-allen tech review showing AI, MR, TR with estimated EF at 59%. 02/21/24: Met with patient bedside. Dyspnea has improved. RA at baseline. Oxygen now at 2L from 4L on admission. BLE wrapped in compression dressing per podiatry. Improved aeration on lung auscultation, no wheezing. Plan to continue levaquin for coverage of pneumonia/LLE wound. Continue lasix. - Review of Systems Constitutional: No Symptoms Eyes: No Symptoms Ears, Nose, & Throat: No Symptoms Respiratory: Cough, Short Of Breath Cardiac: Edema Abdominal/Gastrointestinal: No Symptoms Genitourinary Symptoms: No Symptoms Musculoskeletal: No Symptoms Skin: Cellulitis Neurological: No Symptoms Psychological: No Symptoms Endocrine: No Symptoms Hematologic/Lymphatic: No Symptoms Objective Exam General Appearance: no apparent distress Neurologic Exam: alert, oriented x 3, cooperative Skin Exam: normal color Wound Assessment: Skin/Wound Assessment Wound/Incision Assessment Start: 02/20/24 01:47 Text: Status: Active Freq: Q6H Protocol: Document 02/21/24 00:57 AF (Rec: 02/21/24 00:58 AF [id number]) Wound/Incision Assessment Coccyx Wound Assessment New Finding Wound Type Maceration Wound Stage Non Pressure Wound Drainage Amount None Drainage Odor None/Absent General Appearance Well Approximated,Asymptomatic ,Reddened Surrounding Tissue [place] Topical Solution/Irrigant Medicated Ointment Comment Multiple open areas on coccyx discovered when pt was using restroom, applied barrier cream Wound Photo Photo Taken No Eye Exam: PERRL Ears, Nose, Throat Exam: normal ENT inspection Neck Exam: normal inspection Respiratory Exam: diminished breath sounds Cardiovascular Exam: regular rate/rhythm, normal heart sounds Gastrointestinal/Abdomen Exam: soft, normal bowel sounds Extremity Exam: pedal edema, swelling (BLE wrapped in compression dressings) Back Exam: normal inspection Male Genitalia Exam: deferred Rectal Exam: deferred Objective Data Vital Signs: Vital Signs - 24 hr Temp Pulse Resp BP Pulse Ox 02/21/24 07:29 96.7 F 71 18 110/60 100 02/21/24 07:26 98.4 F 72 18 114/55 93 L 02/21/24 07:20 73 20 99 02/21/24 04:00 97.8 F 68 19 136/62 99 02/20/24 23:48 97.9 F 71 19 137/64 96 02/20/24 20:05 95 H 18 96 02/20/24 19:57 98.3 F 85 18 118/56 99 02/20/24 15:01 98.0 F 86 18 131/60 96 02/20/24 11:54 97.2 F 89 18 122/60 99 Pain Assessment - Last Documented Pain Intensity 0 Intake and Output: Intake & Output 02/18/24 02/19/24 02/20/24 02/21/24 11:59 11:59 11:59 11:59 Intake Total 240 1389 Output Total 700 Balance 240 689 Weight 89.3 kg Lab Results: Lab Results-Last 24 Hours 02/20/24 02/20/24 02/21/24 Range/Units 15:52 20:57 06:34 WBC (4.23-9.07) x10^3/uL RBC (4.63-6.08) x10^6/uL Hgb (13.7-17.5) g/dL Hct (40.1-51.0) % MCV (79.0-92.2) fL MCH (25.7-32.2) pg MCHC (32.3-36.5) g/dL RDW (11.6-14.4) % Plt Count (163-337) x10^3/uL MPV (9.4-12.4) fL Gran % (34.0-67.9) % Immature Gran % (Auto) (0.001-0.429) % Nucleat RBC Rel Count (0.00-0.2) % Eos # (Auto) (0.04-0.54) x10^3/uL Immature Gran # (Auto) (0.001-0.031) x10^3u/L Absolute Lymphs (auto) (1.32-3.57) x10^3/uL Absolute Monos (auto) (0.30-0.82) x10^3/uL Absolute Nucleated RBC (0.00-0.012) x10^3u/L Lymphocytes % (21.8-53.1) % Monocytes % (5.3-12.2) % Eosinophils % (0.8-7.0) % Basophils % (0.2-1.2) % Absolute Granulocytes (1.78-5.38) x10^3/uL Basophils # (0.01-0.08) x10^3/uL Sodium (135-145) mmol/L Potassium (3.5-5.1) mmol/L Chloride (98-107) mmol/L Carbon Dioxide (22-30) mmol/L Anion Gap (5-15) MEQ/L BUN (9-20) mg/dL Creatinine (0.66-1.25) mg/dL Estimated GFR ML/MIN Glucose (74-106) mg/dL POC Glucometer 140 H 132 H 142 H (74 to 106) mg/dL Calcium (8.4-10.2) mg/dL Total Bilirubin (0.2-1.3) mg/dL AST (17-59) U/L ALT (0-50) U/L Alkaline Phosphatase (38-126) U/L Serum Total Protein (6.3-8.2) g/dL Albumin (3.5-5.0) g/dL Slides for Path Review 02/21/24 02/21/24 02/21/24 Range/Units 08:10 08:10 11:17 WBC 6.0 (4.23-9.07) x10^3/uL RBC 3.71 L (4.63-6.08) x10^6/uL Hgb 10.4 L (13.7-17.5) g/dL Hct 35.0 L (40.1-51.0) % MCV 94.3 H (79.0-92.2) fL MCH 28.0 (25.7-32.2) pg MCHC 29.7 L (32.3-36.5) g/dL RDW 14.0 (11.6-14.4) % Plt Count 211 (163-337) x10^3/uL MPV 8.8 L (9.4-12.4) fL Gran % 84.5 H (34.0-67.9) % Immature Gran % (Auto) 0.5 H (0.001-0.429) % Nucleat RBC Rel Count 0.0 (0.00-0.2) % Eos # (Auto) 0 L (0.04-0.54) x10^3/uL Immature Gran # (Auto) 0.03 (0.001-0.031) x10^3u/L Absolute Lymphs (auto) 0.54 L (1.32-3.57) x10^3/uL Absolute Monos (auto) 0.35 (0.30-0.82) x10^3/uL Absolute Nucleated RBC 0.00 (0.00-0.012) x10^3u/L Lymphocytes % 9.0 L (21.8-53.1) % Monocytes % 5.8 (5.3-12.2) % Eosinophils % 0.0 L (0.8-7.0) % Basophils % 0.2 (0.2-1.2) % Absolute Granulocytes 5.08 (1.78-5.38) x10^3/uL Basophils # 0.01 (0.01-0.08) x10^3/uL Sodium 140 (135-145) mmol/L Potassium 5.1 (3.5-5.1) mmol/L Chloride 101 (98-107) mmol/L Carbon Dioxide 36 H (22-30) mmol/L Anion Gap 8.3 (5-15) MEQ/L BUN 40 H (9-20) mg/dL Creatinine 1.05 (0.66-1.25) mg/dL Estimated GFR 70.0 ML/MIN Glucose 132 H (74-106) mg/dL POC Glucometer 122 H (74 to 106) mg/dL Calcium 10.3 H (8.4-10.2) mg/dL Total Bilirubin 0.30 (0.2-1.3) mg/dL AST 23 (17-59) U/L ALT 16 (0-50) U/L Alkaline Phosphatase 49 (38-126) U/L Serum Total Protein 6.8 (6.3-8.2) g/dL Albumin 3.9 (3.5-5.0) g/dL Slides for Path Review YES Radiology Exams: Radiology Procedures Category Date Time Status ABDOMEN AND PELVIS W CONTRAST [CT] Stat Exams 02/19/24 18:56 Completed CHEST WITH CONTRAST [CT] Stat Exams 02/19/24 18:56 Completed ECHO W/2D AND DOPPLER [US] Urgent Exams 02/20/24 08:11 Taken Multi-Disciplinary Progress Notes: Multi-Disciplinary Progress Notes 02/21/24 10:29 Case Management Note by Columba Giordano/Jolie PATIENT ABOUT PLANS AT DC- HE CONTINUES TO PLAN TO DC HOME. HE REPORTS HIS CAN ASSIST HIM AND HE HAS FAMILY AT LIVES NEXT DOOR THAT CAN HELP WELL. WE DISCUSSED HHC. HE STATED THIS WAS SUPPOSE TO HAVE BEEN SET UP BY [facility] OFFICE. HE CONTINUES TO BE AGREEABLE TO THAT. WE ALSO DISCUSSED HOME OXYGEN IF NEEDED. HE WOULD LIKE TO USE [facility] THIS IS WHO HIS 'S OXYGEN IS THRU. HE DENIES ANY OTHER NEEDS. HE PLANS TO RETURN HOME TO HIS PLF Initialized on 02/21/24 10:29 - END OF NOTE 02/21/24 10:27 Case Management Note by Columba Giordano [facility] CALLED- THEY HAVE AN ACTIVE REFERRAL FOR PATIENT. THEY WILL NEED NOTIFIED AT TIME OF DC AT [phone], THEY WILL NEED FAXED THE DC INSTRUCTIONS, DC MED LIST AND DC SUMMARY TO [phone] THEY WILL ALSO NEED SPECIFIC INSTRUCTIONS REGARDING [facility] Initialized on 02/21/24 10:27 - END OF NOTE Assessment/Plan (1) Acute respiratory failure with hypoxia Current Visit: No Status: Acute Assessment & Plan: -secondary to CHF/copd exacerbation, possible pneumonia -ABG/BIPAP as needed for increase lethargy/confusion -supplemental oxygen with goal spo2 88-92% -RT following- DuoNebs/bronchodilators/solu-medrol -Levaquin -RA at baseline - now at 2L from 4L on admission Code(s): J96.01 - ACUTE RESPIRATORY FAILURE WITH HYPOXIA (2) Anemia Current Visit: Yes Status: Acute Assessment & Plan: -macrocytic -iron labs with b12 fol/ferritin Code(s): D64.9 - ANEMIA, UNSPECIFIED (3) BPH (benign prostatic hyperplasia) Current Visit: No Status: Acute Assessment & Plan: -continue proscar Code(s): N40.0 - BENIGN PROSTATIC HYPERPLASIA WITHOUT LOWER URINRY TRACT SYMP (4) COPD exacerbation Current Visit: No Status: Acute Assessment & Plan: -Supplemental oxygen with goal spo2 >88-92% -add advair/albuterol/duonebs -solumedrol -titrate -levaquin 02/20: -Lung sounds with increased aeration, no wheezing -Baseline RA with CPAP at night, 4L on admission, now at 2L -Continue levaquin/solumedrol Code(s): J44.1 - CHRONIC OBSTRUCTIVE PULMONARY DISEASE W (ACUTE) EXACERBATION (5) HTN (hypertension) Current Visit: No Status: Acute Assessment & Plan: -stable, continue home meds Code(s): I10 - ESSENTIAL (PRIMARY) HYPERTENSION (6) Left leg cellulitis Current Visit: No Status: Acute Assessment & Plan: --Podiatry following, culture with stentrophomonas maltophilis sensitive to levaquin- will continue -continue compression dressings per podiatry -culture pending from 02/20/24 of E -blood cultures pending Code(s): L03.116 - CELLULITIS OF LEFT LOWER LIMB (7) KAILEE (obstructive sleep apnea) Current Visit: No Status: Acute Assessment & Plan: -Continue CPAP/BIPAP Code(s): G47.33 - OBSTRUCTIVE SLEEP APNEA (ADULT) (PEDIATRIC) (8) Pleural effusion Current Visit: Yes Status: Acute Assessment & Plan: -no echo on file - will obtain, pt unsure of cardiac history -Echo pending -pre-allen tech review showing AI, MR, TR with estimated EF at 59% -BNP elevated at 1390 -consider cardiac consult if new onset Code(s): J90 - PLEURAL EFFUSION, NOT ELSEWHERE CLASSIFIED (9) Pneumonia Current Visit: Yes Status: Acute Assessment & Plan: -Continue Levaquin -Supplemental oxygen with goal spo2 88-92% - RT to qualify for home oxygen if unable to wean Code(s): J18.9 - PNEUMONIA, UNSPECIFIED ORGANISM (10) Type 2 diabetes mellitus Current Visit: No Status: Acute Assessment & Plan: -SSI, hold metformin -ADA diet -A1c at 5.61 -monitor blood glucose carefully in the setting of steroids VTE: lovenox PPI: protonix Code status: full Dispo: 1-2 days
[2024-02-21] MEDS: PROTONIX 40 MG IV IV SCH (13:15)
[2024-02-21] MEDS: ENOXAPARIN SODIUM SQ SCH (13:15)
[2024-02-21] MEDS: Ear Wax Drops OT SCH (13:17)
[2024-02-21] MEDS: HUMALOG SQ PRN (18:11)
[2024-02-21 18:48] LABS: Ferritin 93.6 ng/mL (17.9-464); Folate (Folic Acid) 8.91 ng/mL (2.76 - >20)
[2024-02-21] MEDS: VENTOLIN COMMON CANISTER IH PRN (19:32)
[2024-02-22 05:15] LABS: Absolute Neutrophil Ct (ANC) 5.31 x10^3/uL (1.78-5.38); BASOPHIL % 0.2 % (0.2-1.2); Basophil (Absolute #) 0.01 x10^3/uL (0.01-0.08); Eosinophil (Absolute #) 0 x10^3/uL (0.04-0.54); Hematocrit 33.5 % (40.1-51.0); Hemoglobin 10.4 g/dL (13.7-17.5); IMMATURE GRAN # 0.03 x10^3u/L (0.001-0.031); IMMATURE GRAN % 0.5 % (0.001-0.429); Lymphocyte (Absolute #) 0.41 x10^3/uL (1.32-3.57); Lymphocytes % 6.9 % (21.8-53.1); Mean Corpuscular Hemoglobin 28.3 pg (25.7-32.2); Mean Platelet Volume 9.4 fL (9.4-12.4); Monocyte (Absolute #) 0.18 x10^3/uL (0.30-0.82); Neutrophil % 89.4 % (34.0-67.9); Platelet Count 209 x10^3/uL (163-337); Red Blood Count 3.68 x10^6/uL (4.63-6.08); Red Cell Distribution Width 14.1 % (11.6-14.4); White Blood Count 5.9 x10^3/uL (4.23-9.07)
--- NOTE | 2024-02-22 05:25 | PCM.NOTE ---
Date and Time: 02/22/24 0524 Subjective Assessment: Mr. Christina is an 83 year old with a pmhx of HLD, HTN, KAILEE, DMII, COPD, CHF, and BPH who presented to ED 02/19/24 with complaints of progressive shortness of breath. Patient was diagnosed by ED three week ago with pneumonia and was treated OP with one week of Cefdinir. Patient reports that he did not improve with abx therapy and was prompted to report to ED when he was unable to catch his breath sitting up which had been helping. CT of the chest was performed showing Bilateral moderate pleural effusion is noted with patches of consolidation/collapse in both lower lobes. Moderate cardiomegaly. Appearances may be secondary to acute infectious disease process/fluid overload secondary to a cardiogenic cause. Patient received a dose of levaquin in the ED. Lab findings unremarkable. Patient also following with podiatry for cellulitis of the LLE with wound culture showing stentrophomonas maltophilis sensitive to levaquin. Plan to continue levaquin for coverage of both the wound culture and and any underlying pneumonia. Patient is baseline on RA, now on 4L oxygen. He states dyspnea has improved. No cough. Upon exam patient with noted BLE edema +2 pitting, diminished lung sounds with exp wheezing. Will start solumedrol and lasix. Patient most likely will need a few days of diuresis. Will continue BIPAP QHS. Echo pending -pre-allen tech review showing AI, MR, TR with estimated EF at 59%. 02/21/24: Met with patient bedside. Dyspnea has improved. RA at baseline. Oxygen now at 2L from 4L on admission. BLE wrapped in compression dressing per podiatry. Improved aeration on lung auscultation, no wheezing. Plan to continue levaquin for coverage of pneumonia/LLE wound. Continue lasix. 02/22/24: Patient continues to improve. Endorses BLE edema is improved and is able to ambulate better. Lung sound diminished with improved aeration. Wound culture of LLE pending with gram - ID taken 02/20/24. Plan to continue current regimen, possible discharge tomorrow. - Review of Systems Constitutional: No Symptoms Eyes: No Symptoms Ears, Nose, & Throat: No Symptoms Respiratory: Cough, Short Of Breath Cardiac: Edema Abdominal/Gastrointestinal: No Symptoms Genitourinary Symptoms: No Symptoms Musculoskeletal: No Symptoms Skin: Cellulitis Neurological: No Symptoms Psychological: No Symptoms Endocrine: No Symptoms Hematologic/Lymphatic: No Symptoms Objective Exam General Appearance: no apparent distress Neurologic Exam: alert, oriented x 3, cooperative Skin Exam: normal color Wound Assessment: Skin/Wound Assessment Wound/Incision Assessment Start: 02/20/24 01:47 Text: Status: Active Freq: Q6H Protocol: Document 02/22/24 02:00 AF (Rec: 02/22/24 04:00 AF [id number]) Wound/Incision Assessment Coccyx Wound Assessment Shift Assessment Wound Type Maceration Wound Stage Non Pressure Wound Drainage Amount None Drainage Odor None/Absent General Appearance Well Approximated,Asymptomatic ,Open to air,Reddened Surrounding Tissue [place] Comment barrier cream applied PRN; position of "wound" is inferior to the coccyx, in the cleavage of the buttocks Wound Photo Photo Taken No Eye Exam: PERRL Ears, Nose, Throat Exam: normal ENT inspection Neck Exam: normal inspection Respiratory Exam: diminished breath sounds Cardiovascular Exam: regular rate/rhythm, normal heart sounds Gastrointestinal/Abdomen Exam: soft, normal bowel sounds Extremity Exam: swelling (BLE edema with compression dressings) Back Exam: normal inspection Male Genitalia Exam: deferred Rectal Exam: deferred Objective Data Vital Signs: Vital Signs - 24 hr Temp Pulse Resp BP Pulse Ox 02/22/24 04:00 98.7 F 77 20 141/67 98 02/22/24 00:00 97.3 F 95 H 20 145/74 99 02/21/24 20:00 98.3 F 85 17 120/58 95 02/21/24 19:54 86 18 99 02/21/24 16:00 98.1 F 77 18 120/55 96 02/21/24 12:00 98.7 F 58 L 16 135/58 93 L 02/21/24 07:29 96.7 F 71 18 110/60 100 02/21/24 07:26 98.4 F 72 18 114/55 93 L 02/21/24 07:20 73 20 99 Pain Assessment - Last Documented Pain Intensity 0 Intake and Output: Intake & Output 02/19/24 02/20/24 02/21/24 02/22/24 11:59 11:59 11:59 11:59 Intake Total 240 1389 760 Output Total 700 Balance 240 689 760 Weight 89.3 kg Lab Results: Lab Results-Last 24 Hours 02/21/24 02/21/24 02/21/24 Range/Units 06:34 08:10 08:10 WBC 6.0 (4.23-9.07) x10^3/uL RBC 3.71 L (4.63-6.08) x10^6/uL Hgb 10.4 L (13.7-17.5) g/dL Hct 35.0 L (40.1-51.0) % MCV 94.3 H (79.0-92.2) fL MCH 28.0 (25.7-32.2) pg MCHC 29.7 L (32.3-36.5) g/dL RDW 14.0 (11.6-14.4) % Plt Count 211 (163-337) x10^3/uL MPV 8.8 L (9.4-12.4) fL Gran % 84.5 H (34.0-67.9) % Immature Gran % (Auto) 0.5 H (0.001-0.429) % Nucleat RBC Rel Count 0.0 (0.00-0.2) % Eos # (Auto) 0 L (0.04-0.54) x10^3/uL Immature Gran # (Auto) 0.03 (0.001-0.031) x10^3u/L Absolute Lymphs (auto) 0.54 L (1.32-3.57) x10^3/uL Absolute Monos (auto) 0.35 (0.30-0.82) x10^3/uL Absolute Nucleated RBC 0.00 (0.00-0.012) x10^3u/L Lymphocytes % 9.0 L (21.8-53.1) % Monocytes % 5.8 (5.3-12.2) % Eosinophils % 0.0 L (0.8-7.0) % Basophils % 0.2 (0.2-1.2) % Absolute Granulocytes 5.08 (1.78-5.38) x10^3/uL Basophils # 0.01 (0.01-0.08) x10^3/uL Sodium 140 (135-145) mmol/L Potassium 5.1 (3.5-5.1) mmol/L Chloride 101 (98-107) mmol/L Carbon Dioxide 36 H (22-30) mmol/L Anion Gap 8.3 (5-15) MEQ/L BUN 40 H (9-20) mg/dL Creatinine 1.05 (0.66-1.25) mg/dL Estimated GFR 70.0 ML/MIN Glucose 132 H (74-106) mg/dL POC Glucometer 142 H (74 to 106) mg/dL Calcium 10.3 H (8.4-10.2) mg/dL Ferritin (17.9-464) ng/mL Total Bilirubin 0.30 (0.2-1.3) mg/dL AST 23 (17-59) U/L ALT 16 (0-50) U/L Alkaline Phosphatase 49 (38-126) U/L Serum Total Protein 6.8 (6.3-8.2) g/dL Albumin 3.9 (3.5-5.0) g/dL Vitamin B12 (239-931) pg/mL Folic Acid (2.76 - >20) ng/mL Slides for Path Review YES 02/21/24 02/21/24 02/21/24 Range/Units 08:10 11:17 16:26 WBC (4.23-9.07) x10^3/uL RBC (4.63-6.08) x10^6/uL Hgb (13.7-17.5) g/dL Hct (40.1-51.0) % MCV (79.0-92.2) fL MCH (25.7-32.2) pg MCHC (32.3-36.5) g/dL RDW (11.6-14.4) % Plt Count (163-337) x10^3/uL MPV (9.4-12.4) fL Gran % (34.0-67.9) % Immature Gran % (Auto) (0.001-0.429) % Nucleat RBC Rel Count (0.00-0.2) % Eos # (Auto) (0.04-0.54) x10^3/uL Immature Gran # (Auto) (0.001-0.031) x10^3u/L Absolute Lymphs (auto) (1.32-3.57) x10^3/uL Absolute Monos (auto) (0.30-0.82) x10^3/uL Absolute Nucleated RBC (0.00-0.012) x10^3u/L Lymphocytes % (21.8-53.1) % Monocytes % (5.3-12.2) % Eosinophils % (0.8-7.0) % Basophils % (0.2-1.2) % Absolute Granulocytes (1.78-5.38) x10^3/uL Basophils # (0.01-0.08) x10^3/uL Sodium (135-145) mmol/L Potassium (3.5-5.1) mmol/L Chloride (98-107) mmol/L Carbon Dioxide (22-30) mmol/L Anion Gap (5-15) MEQ/L BUN (9-20) mg/dL Creatinine (0.66-1.25) mg/dL Estimated GFR ML/MIN Glucose (74-106) mg/dL POC Glucometer 122 H 205 H (74 to 106) mg/dL Calcium (8.4-10.2) mg/dL Ferritin 93.6 (17.9-464) ng/mL Total Bilirubin (0.2-1.3) mg/dL AST (17-59) U/L ALT (0-50) U/L Alkaline Phosphatase (38-126) U/L Serum Total Protein (6.3-8.2) g/dL Albumin (3.5-5.0) g/dL Vitamin B12 245 (239-931) pg/mL Folic Acid 8.91 (2.76 - >20) ng/mL Slides for Path Review 02/21/24 02/22/24 Range/Units 21:07 04:40 WBC 5.9 (4.23-9.07) x10^3/uL RBC 3.68 L (4.63-6.08) x10^6/uL Hgb 10.4 L (13.7-17.5) g/dL Hct 33.5 L (40.1-51.0) % MCV 91.0 (79.0-92.2) fL MCH 28.3 (25.7-32.2) pg MCHC 31.0 L (32.3-36.5) g/dL RDW 14.1 (11.6-14.4) % Plt Count 209 (163-337) x10^3/uL MPV 9.4 (9.4-12.4) fL Gran % 89.4 H (34.0-67.9) % Immature Gran % (Auto) 0.5 H (0.001-0.429) % Nucleat RBC Rel Count 0.0 (0.00-0.2) % Eos # (Auto) 0 L (0.04-0.54) x10^3/uL Immature Gran # (Auto) 0.03 (0.001-0.031) x10^3u/L Absolute Lymphs (auto) 0.41 L (1.32-3.57) x10^3/uL Absolute Monos (auto) 0.18 L (0.30-0.82) x10^3/uL Absolute Nucleated RBC 0.00 (0.00-0.012) x10^3u/L Lymphocytes % 6.9 L (21.8-53.1) % Monocytes % 3.0 L (5.3-12.2) % Eosinophils % 0.0 L (0.8-7.0) % Basophils % 0.2 (0.2-1.2) % Absolute Granulocytes 5.31 (1.78-5.38) x10^3/uL Basophils # 0.01 (0.01-0.08) x10^3/uL Sodium (135-145) mmol/L Potassium (3.5-5.1) mmol/L Chloride (98-107) mmol/L Carbon Dioxide (22-30) mmol/L Anion Gap (5-15) MEQ/L BUN (9-20) mg/dL Creatinine (0.66-1.25) mg/dL Estimated GFR ML/MIN Glucose (74-106) mg/dL POC Glucometer 161 H (74 to 106) mg/dL Calcium (8.4-10.2) mg/dL Ferritin (17.9-464) ng/mL Total Bilirubin (0.2-1.3) mg/dL AST (17-59) U/L ALT (0-50) U/L Alkaline Phosphatase (38-126) U/L Serum Total Protein (6.3-8.2) g/dL Albumin (3.5-5.0) g/dL Vitamin B12 (239-931) pg/mL Folic Acid (2.76 - >20) ng/mL Slides for Path Review Radiology Exams: Radiology Procedures Category Date Time Status ECHO W/2D AND DOPPLER [US] Urgent Exams 02/20/24 08:11 Taken Multi-Disciplinary Progress Notes: Multi-Disciplinary Progress Notes 02/21/24 10:29 Case Management Note by Columba Giordano S/Jolie PATIENT ABOUT PLANS AT DC- HE CONTINUES TO PLAN TO DC HOME. HE REPORTS HIS CAN ASSIST HIM AND HE HAS FAMILY AT LIVES NEXT DOOR THAT CAN HELP WELL. WE DISCUSSED HHC. HE STATED THIS WAS SUPPOSE TO HAVE BEEN SET UP BY [facility] OFFICE. HE CONTINUES TO BE AGREEABLE TO THAT. WE ALSO DISCUSSED HOME OXYGEN IF NEEDED. HE WOULD LIKE TO USE [facility] THIS IS WHO HIS 'S OXYGEN IS THRU. HE DENIES ANY OTHER NEEDS. HE PLANS TO RETURN HOME TO HIS PLF Initialized on 02/21/24 10:29 - END OF NOTE 02/21/24 10:27 Case Management Note by Columba Giordano [facility] CALLED- THEY HAVE AN ACTIVE REFERRAL FOR PATIENT. THEY WILL NEED NOTIFIED AT TIME OF DC AT [phone], THEY WILL NEED FAXED THE DC INSTRUCTIONS, DC MED LIST AND DC SUMMARY TO [phone] THEY WILL ALSO NEED SPECIFIC INSTRUCTIONS REGARDING [facility] Initialized on 02/21/24 10:27 - END OF NOTE Assessment/Plan (1) Acute respiratory failure with hypoxia Current Visit: No Status: Acute Assessment & Plan: -secondary to CHF/copd exacerbation, possible pneumonia -ABG/BIPAP as needed for increase lethargy/confusion -supplemental oxygen with goal spo2 88-92% -RT following- DuoNebs/bronchodilators/solu-medrol -Levaquin -RA at baseline - now at 2L from 4L on admission Code(s): J96.01 - ACUTE RESPIRATORY FAILURE WITH HYPOXIA (2) Anemia Current Visit: Yes Status: Acute Assessment & Plan: -macrocytic -iron labs with b12 fol/ferritin Code(s): D64.9 - ANEMIA, UNSPECIFIED (3) BPH (benign prostatic hyperplasia) Current Visit: No Status: Acute Assessment & Plan: -continue proscar Code(s): N40.0 - BENIGN PROSTATIC HYPERPLASIA WITHOUT LOWER URINRY TRACT SYMP (4) COPD exacerbation Current Visit: No Status: Acute Assessment & Plan: -Supplemental oxygen with goal spo2 >88-92% -add advair/albuterol/duonebs -solumedrol -titrate -levaquin 02/20: -Lung sounds with increased aeration, no wheezing -Baseline RA with CPAP at night, 4L on admission, now at 2L -Continue levaquin/solumedrol Code(s): J44.1 - CHRONIC OBSTRUCTIVE PULMONARY DISEASE W (ACUTE) EXACERBATION (5) HTN (hypertension) Current Visit: No Status: Acute Assessment & Plan: -stable, continue home meds Code(s): I10 - ESSENTIAL (PRIMARY) HYPERTENSION (6) Left leg cellulitis Current Visit: No Status: Acute Assessment & Plan: --Podiatry following, culture with stentrophomonas maltophilis sensitive to levaquin- will continue -continue compression dressings per podiatry -culture pending from 02/20/24 of LLE -gram negative ID -blood cultures pending -ngtD Code(s): L03.116 - CELLULITIS OF LEFT LOWER LIMB (7) KAILEE (obstructive sleep apnea) Current Visit: No Status: Acute Assessment & Plan: -Continue CPAP/BIPAP Code(s): G47.33 - OBSTRUCTIVE SLEEP APNEA (ADULT) (PEDIATRIC) (8) Pleural effusion Current Visit: Yes Status: Acute Assessment & Plan: -no echo on file - will obtain, pt unsure of cardiac history -Echo pending -pre-allen tech review showing AI, MR, TR with estimated EF at 59% - final read still pending 02/22/24 -BNP elevated at 1390 -consider cardiac consult if new onset Code(s): J90 - PLEURAL EFFUSION, NOT ELSEWHERE CLASSIFIED (9) Pneumonia Current Visit: Yes Status: Acute Assessment & Plan: -Continue Levaquin -Supplemental oxygen with goal spo2 88-92% - RT to qualify for home oxygen if unable to wean 02/21: -attempt to wean oxygen - qualify for home oxygen if needed -consider repeat CXR tomorrow Code(s): J18.9 - PNEUMONIA, UNSPECIFIED ORGANISM (10) Type 2 diabetes mellitus Current Visit: No Status: Acute Assessment & Plan: -SSI, hold metformin -ADA diet -A1c at 5.61 -monitor blood glucose carefully in the setting of steroids VTE: lovenox PPI: protonix Code status: full Dispo: 1-2 days Code(s): J96.01 - ACUTE RESPIRATORY FAILURE WITH HYPOXIA (2) Anemia Current Visit: Yes Status: Acute Code(s): D64.9 - ANEMIA, UNSPECIFIED (3) BPH (benign prostatic hyperplasia) Current Visit: No Status: Acute Code(s): N40.0 - BENIGN PROSTATIC HYPERPLASIA WITHOUT LOWER URINRY TRACT SYMP (4) COPD exacerbation Current Visit: No Status: Acute Code(s): J44.1 - CHRONIC OBSTRUCTIVE PULMONARY DISEASE W (ACUTE) EXACERBATION (5) HTN (hypertension) Current Visit: No Status: Acute Code(s): I10 - ESSENTIAL (PRIMARY) HYPERTENSION (6) Left leg cellulitis Current Visit: No Status: Acute Code(s): L03.116 - CELLULITIS OF LEFT LOWER LIMB (7) KAILEE (obstructive sleep apnea) Current Visit: No Status: Acute Code(s): G47.33 - OBSTRUCTIVE SLEEP APNEA (ADULT) (PEDIATRIC) (8) Pleural effusion Current Visit: Yes Status: Acute Code(s): J90 - PLEURAL EFFUSION, NOT ELSEWHERE CLASSIFIED (9) Pneumonia Current Visit: Yes Status: Acute Code(s): J18.9 - PNEUMONIA, UNSPECIFIED ORGANISM (10) Type 2 diabetes mellitus Current Visit: No Status: Acute
[2024-02-22 05:42] LABS: ALBUMIN 3.7 g/dL (3.5-5.0); ANION GAP 8.3 MEQ/L (5-15); BILIRUBIN,TOTAL 0.4 mg/dL (0.2-1.3); Calcium 10.2 mg/dL (8.4-10.2); Creatinine 1 1.08 mg/dL (0.66-1.25); EST GLOMERULAR FILTRATION RATE 67.7 ML/MIN; Potassium 4.8 mmol/L (3.5-5.1); Total Protein 6.3 g/dL (6.3-8.2)
[2024-02-22 08:07] LABS: Slide Review 1 YES
[2024-02-22 09:26] LABS: Iron 52 ug/dL (49-181); Iron Saturation 15 % (20-39); TIBC 350 ug/dL (261-497)
--- NOTE | 2024-02-23 05:21 | PCM.NOTE ---
Date and Time: 02/23/24 0520 Subjective Assessment: Mr. Christina is an 83 year old with a pmhx of HLD, HTN, KAILEE, DMII, COPD, CHF, and BPH who presented to ED 02/19/24 with complaints of progressive shortness of breath. Patient was diagnosed by ED three week ago with pneumonia and was treated OP with one week of Cefdinir. Patient reports that he did not improve with abx therapy and was prompted to report to ED when he was unable to catch his breath sitting up which had been helping. CT of the chest was performed showing Bilateral moderate pleural effusion is noted with patches of consolidation/collapse in both lower lobes. Moderate cardiomegaly. Appearances may be secondary to acute infectious disease process/fluid overload secondary to a cardiogenic cause. Patient received a dose of levaquin in the ED. Lab findings unremarkable. Patient also following with podiatry for cellulitis of the LLE with wound culture showing stentrophomonas maltophilis sensitive to levaquin. Plan to continue levaquin for coverage of both the wound culture and and any underlying pneumonia. Patient is baseline on RA, now on 4L oxygen. He states dyspnea has improved. No cough. Upon exam patient with noted BLE edema +2 pitting, diminished lung sounds with exp wheezing. Will start solumedrol and lasix. Patient most likely will need a few days of diuresis. Will continue BIPAP QHS. Echo pending -pre-allen tech review showing AI, MR, TR with estimated EF at 59%. 02/21/24: Met with patient bedside. Dyspnea has improved. RA at baseline. Oxygen now at 2L from 4L on admission. BLE wrapped in compression dressing per podiatry. Improved aeration on lung auscultation, no wheezing. Plan to continue levaquin for coverage of pneumonia/LLE wound. Continue lasix. 02/22/24: Patient continues to improve. Endorses BLE edema is improved and is able to ambulate better. Lung sound diminished with improved aeration. Wound culture of LLE pending with gram - ID taken 02/20/24. Plan to continue current regimen, possible discharge tomorrow. Objective Exam Wound Assessment: Skin/Wound Assessment Wound/Incision Assessment Start: 02/20/24 01:47 Text: Status: Active Freq: Q6H Protocol: Document 02/23/24 02:00 AR (Rec: 02/23/24 04:40 AR [id number]) Wound/Incision Assessment Coccyx Wound Assessment Shift Assessment Wound Type Maceration Wound Stage Non Pressure Wound Drainage Amount None Drainage Odor None/Absent General Appearance Well Approximated,Asymptomatic ,Open to air,Reddened Surrounding Tissue [place] Comment barrier cream applied PRN; position of wound is inferior to the coccyx, in the cleavage of the buttocks. Remains true Wound Photo Photo Taken No Objective Data Vital Signs: Vital Signs - 24 hr Temp Pulse Resp BP Pulse Ox 02/23/24 04:00 97.0 F 70 22 162/72 97 02/22/24 23:44 97.2 F 77 18 131/62 97 02/22/24 20:00 97.2 F 86 24 143/88 97 02/22/24 19:29 84 18 98 02/22/24 16:00 98.2 F 78 18 130/84 96 02/22/24 11:41 97.7 F 73 19 137/61 97 02/22/24 07:29 85 18 96 02/22/24 07:22 97.5 F 79 21 157/67 97 Pain Assessment - Last Documented Pain Intensity 0 Intake and Output: Intake & Output 02/20/24 02/21/24 02/22/24 02/23/24 11:59 11:59 11:59 11:59 Intake Total 240 1389 1040 1070 Output Total 790 197 4594 Balance 240 462 544 -9123 Weight 89.3 kg 88 kg Lab Results: Lab Results-Last 24 Hours 02/21/24 02/22/24 02/22/24 Range/Units 08:10 04:40 04:40 WBC 5.9 (4.23-9.07) x10^3/uL RBC 3.68 L (4.63-6.08) x10^6/uL Hgb 10.4 L (13.7-17.5) g/dL Hct 33.5 L (40.1-51.0) % MCV 91.0 (79.0-92.2) fL MCH 28.3 (25.7-32.2) pg MCHC 31.0 L (32.3-36.5) g/dL RDW 14.1 (11.6-14.4) % Plt Count 209 (163-337) x10^3/uL MPV 9.4 (9.4-12.4) fL Gran % 89.4 H (34.0-67.9) % Immature Gran % (Auto) 0.5 H (0.001-0.429) % Nucleat RBC Rel Count 0.0 (0.00-0.2) % Eos # (Auto) 0 L (0.04-0.54) x10^3/uL Immature Gran # (Auto) 0.03 (0.001-0.031) x10^3u/L Absolute Lymphs (auto) 0.41 L (1.32-3.57) x10^3/uL Absolute Monos (auto) 0.18 L (0.30-0.82) x10^3/uL Absolute Nucleated RBC 0.00 (0.00-0.012) x10^3u/L Lymphocytes % 6.9 L (21.8-53.1) % Monocytes % 3.0 L (5.3-12.2) % Eosinophils % 0.0 L (0.8-7.0) % Basophils % 0.2 (0.2-1.2) % Absolute Granulocytes 5.31 (1.78-5.38) x10^3/uL Basophils # 0.01 (0.01-0.08) x10^3/uL Sodium 140 (135-145) mmol/L Potassium 4.8 (3.5-5.1) mmol/L Chloride 98 (98-107) mmol/L Carbon Dioxide 39 H (22-30) mmol/L Anion Gap 8.3 (5-15) MEQ/L BUN 47 H (9-20) mg/dL Creatinine 1.08 (0.66-1.25) mg/dL Estimated GFR 67.7 ML/MIN Glucose 166 H (74-106) mg/dL POC Glucometer (74 to 106) mg/dL Calcium 10.2 (8.4-10.2) mg/dL Iron 52 (49-181) ug/dL TIBC 350 (261-497) ug/dL Iron Saturation 15 L (20-39) % Total Bilirubin 0.40 (0.2-1.3) mg/dL AST 22 (17-59) U/L ALT 15 (0-50) U/L Alkaline Phosphatase 49 (38-126) U/L Serum Total Protein 6.3 (6.3-8.2) g/dL Albumin 3.7 (3.5-5.0) g/dL Slides for Path Review YES 02/22/24 02/22/24 02/22/24 Range/Units 06:29 11:27 16:18 WBC (4.23-9.07) x10^3/uL RBC (4.63-6.08) x10^6/uL Hgb (13.7-17.5) g/dL Hct (40.1-51.0) % MCV (79.0-92.2) fL MCH (25.7-32.2) pg MCHC (32.3-36.5) g/dL RDW (11.6-14.4) % Plt Count (163-337) x10^3/uL MPV (9.4-12.4) fL Gran % (34.0-67.9) % Immature Gran % (Auto) (0.001-0.429) % Nucleat RBC Rel Count (0.00-0.2) % Eos # (Auto) (0.04-0.54) x10^3/uL Immature Gran # (Auto) (0.001-0.031) x10^3u/L Absolute Lymphs (auto) (1.32-3.57) x10^3/uL Absolute Monos (auto) (0.30-0.82) x10^3/uL Absolute Nucleated RBC (0.00-0.012) x10^3u/L Lymphocytes % (21.8-53.1) % Monocytes % (5.3-12.2) % Eosinophils % (0.8-7.0) % Basophils % (0.2-1.2) % Absolute Granulocytes (1.78-5.38) x10^3/uL Basophils # (0.01-0.08) x10^3/uL Sodium (135-145) mmol/L Potassium (3.5-5.1) mmol/L Chloride (98-107) mmol/L Carbon Dioxide (22-30) mmol/L Anion Gap (5-15) MEQ/L BUN (9-20) mg/dL Creatinine (0.66-1.25) mg/dL Estimated GFR ML/MIN Glucose (74-106) mg/dL POC Glucometer 140 H 178 H 181 H (74 to 106) mg/dL Calcium (8.4-10.2) mg/dL Iron (49-181) ug/dL TIBC (261-497) ug/dL Iron Saturation (20-39) % Total Bilirubin (0.2-1.3) mg/dL AST (17-59) U/L ALT (0-50) U/L Alkaline Phosphatase (38-126) U/L Serum Total Protein (6.3-8.2) g/dL Albumin (3.5-5.0) g/dL Slides for Path Review 02/22/24 Range/Units 22:13 WBC (4.23-9.07) x10^3/uL RBC (4.63-6.08) x10^6/uL Hgb (13.7-17.5) g/dL Hct (40.1-51.0) % MCV (79.0-92.2) fL MCH (25.7-32.2) pg MCHC (32.3-36.5) g/dL RDW (11.6-14.4) % Plt Count (163-337) x10^3/uL MPV (9.4-12.4) fL Gran % (34.0-67.9) % Immature Gran % (Auto) (0.001-0.429) % Nucleat RBC Rel Count (0.00-0.2) % Eos # (Auto) (0.04-0.54) x10^3/uL Immature Gran # (Auto) (0.001-0.031) x10^3u/L Absolute Lymphs (auto) (1.32-3.57) x10^3/uL Absolute Monos (auto) (0.30-0.82) x10^3/uL Absolute Nucleated RBC (0.00-0.012) x10^3u/L Lymphocytes % (21.8-53.1) % Monocytes % (5.3-12.2) % Eosinophils % (0.8-7.0) % Basophils % (0.2-1.2) % Absolute Granulocytes (1.78-5.38) x10^3/uL Basophils # (0.01-0.08) x10^3/uL Sodium (135-145) mmol/L Potassium (3.5-5.1) mmol/L Chloride (98-107) mmol/L Carbon Dioxide (22-30) mmol/L Anion Gap (5-15) MEQ/L BUN (9-20) mg/dL Creatinine (0.66-1.25) mg/dL Estimated GFR ML/MIN Glucose (74-106) mg/dL POC Glucometer 143 H (74 to 106) mg/dL Calcium (8.4-10.2) mg/dL Iron (49-181) ug/dL TIBC (261-497) ug/dL Iron Saturation (20-39) % Total Bilirubin (0.2-1.3) mg/dL AST (17-59) U/L ALT (0-50) U/L Alkaline Phosphatase (38-126) U/L Serum Total Protein (6.3-8.2) g/dL Albumin (3.5-5.0) g/dL Slides for Path Review Multi-Disciplinary Progress Notes: Multi-Disciplinary Progress Notes 02/22/24 23:12 Respiratory Note by Carolin Kilpatrick Pt refuses bipap at this time. Pt states that the mask makes his gums very sor e. O2 on at 2lpm nasal cannula. SpO2 98%. No respiratory distress noted, will continue to monitor. Initialized on 02/22/24 23:12 - END OF NOTE 02/22/24 12:23 Case Management Note by Columba Giordano S/W PATIENT- HE CONTINUES TO PLAN TO DC HOME TO HIS PLF. HE DOES NOT WANT A REHAB STAY. HE LIVES WITH HIS AND HAS FAMILY THAT LIVES RIGHT NEXT DOOR THAT CAN HELP HIM NEEDED. [facility] HAS BEEN ARRANGED. [facility] [employer]D[facility] WERE FAXED TO THEM TODAY WITH [facility]ED NOTICE OF LIKELY DC HOME 02/22. PATIENT DOWN TO 2L/NC. PAT FONTAINE GIVEN OXYGEN ORDER FORM FOR [facility] IF PATIENT NEEDS TO DC HOME ON THIS. NO OTHER NEW NEEDS IDENTIFIED AT THIS TIME Initialized on 02/22/24 12:23 - END OF NOTE Assessment/Plan (1) Acute respiratory failure with hypoxia Current Visit: No Status: Acute Assessment & Plan: -secondary to CHF/copd exacerbation, possible pneumonia -ABG/BIPAP as needed for increase lethargy/confusion -supplemental oxygen with goal spo2 88-92% -RT following- DuoNebs/bronchodilators/solu-medrol -Levaquin -RA at baseline - now at 2L from 4L on admission Code(s): J96.01 - ACUTE RESPIRATORY FAILURE WITH HYPOXIA (2) Anemia Current Visit: Yes Status: Acute Assessment & Plan: -macrocytic -iron labs with b12 fol/ferritin Code(s): D64.9 - ANEMIA, UNSPECIFIED (3) BPH (benign prostatic hyperplasia) Current Visit: No Status: Acute Assessment & Plan: -continue proscar Code(s): N40.0 - BENIGN PROSTATIC HYPERPLASIA WITHOUT LOWER URINRY TRACT SYMP (4) COPD exacerbation Current Visit: No Status: Acute Assessment & Plan: -Supplemental oxygen with goal spo2 >88-92% -add advair/albuterol/duonebs -solumedrol -titrate -levaquin 02/20: -Lung sounds with increased aeration, no wheezing -Baseline RA with CPAP at night, 4L on admission, now at 2L -Continue levaquin/solumedrol Code(s): J44.1 - CHRONIC OBSTRUCTIVE PULMONARY DISEASE W (ACUTE) EXACERBATION (5) HTN (hypertension) Current Visit: No Status: Acute Assessment & Plan: -stable, continue home meds Code(s): I10 - ESSENTIAL (PRIMARY) HYPERTENSION (6) Left leg cellulitis Current Visit: No Status: Acute Assessment & Plan: --Podiatry following, culture with stentrophomonas maltophilis sensitive to levaquin- will continue -continue compression dressings per podiatry -culture pending from 02/20/24 of LLE -gram negative ID -blood cultures pending -ngtD Code(s): L03.116 - CELLULITIS OF LEFT LOWER LIMB (7) KAILEE (obstructive sleep apnea) Current Visit: No Status: Acute Assessment & Plan: -Continue CPAP/BIPAP Code(s): G47.33 - OBSTRUCTIVE SLEEP APNEA (ADULT) (PEDIATRIC) (8) Pleural effusion Current Visit: Yes Status: Acute Assessment & Plan: -no echo on file - will obtain, pt unsure of cardiac history -Echo pending -pre-allen tech review showing AI, MR, TR with estimated EF at 59% - final read still pending 02/22/24 -BNP elevated at 1390 -consider cardiac consult if new onset Code(s): J90 - PLEURAL EFFUSION, NOT ELSEWHERE CLASSIFIED (9) Pneumonia Current Visit: Yes Status: Acute Assessment & Plan: -Continue Levaquin -Supplemental oxygen with goal spo2 88-92% - RT to qualify for home oxygen if unable to wean 02/21: -attempt to wean oxygen - qualify for home oxygen if needed -consider repeat CXR tomorrow Code(s): J18.9 - PNEUMONIA, UNSPECIFIED ORGANISM (10) Type 2 diabetes mellitus Current Visit: No Status: Acute Assessment & Plan: -SSI, hold metformin -ADA diet -A1c at 5.61 -monitor blood glucose carefully in the setting of steroids VTE: lovenox PPI: protonix Code status: full Dispo: 1-2 days Code(s): J96.01 - ACUTE RESPIRATORY FAILURE WITH HYPOXIA (2) Anemia Current Visit: Yes Status: Acute Code(s): D64.9 - ANEMIA, UNSPECIFIED (3) BPH (benign prostatic hyperplasia) Current Visit: No Status: Acute Code(s): N40.0 - BENIGN PROSTATIC HYPERPLASIA WITHOUT LOWER URINRY TRACT SYMP (4) COPD exacerbation Current Visit: No Status: Acute Code(s): J44.1 - CHRONIC OBSTRUCTIVE PULMONARY DISEASE W (ACUTE) EXACERBATION (5) HTN (hypertension) Current Visit: No Status: Acute Code(s): I10 - ESSENTIAL (PRIMARY) HYPERTENSION (6) Left leg cellulitis Current Visit: No Status: Acute Code(s): L03.116 - CELLULITIS OF LEFT LOWER LIMB (7) KAILEE (obstructive sleep apnea) Current Visit: No Status: Acute Code(s): G47.33 - OBSTRUCTIVE SLEEP APNEA (ADULT) (PEDIATRIC) (8) Pleural effusion Current Visit: Yes Status: Acute Code(s): J90 - PLEURAL EFFUSION, NOT ELSEWHERE CLASSIFIED (9) Pneumonia Current Visit: Yes Status: Acute Code(s): J18.9 - PNEUMONIA, UNSPECIFIED ORGANISM (10) Type 2 diabetes mellitus Current Visit: No Status: Acute
[2024-02-23 06:02] LABS: Absolute Neutrophil Ct (ANC) 5.22 x10^3/uL (1.78-5.38); Basophil (Absolute #) 0 x10^3/uL (0.01-0.08); Eosinophil (Absolute #) 0 x10^3/uL (0.04-0.54); Hematocrit 34.5 % (40.1-51.0); Hemoglobin 10.8 g/dL (13.7-17.5); IMMATURE GRAN # 0.03 x10^3u/L (0.001-0.031); IMMATURE GRAN % 0.5 % (0.001-0.429); Lymphocytes % 9.7 % (21.8-53.1); Mean Cell Volume 90.8 fL (79.0-92.2); Mean Corpuscular Hemoglobin 28.4 pg (25.7-32.2); Mean Corpuscular Hgb Concent. 31.3 g/dL (32.3-36.5); Mean Platelet Volume 9.3 fL (9.4-12.4); Monocyte (Absolute #) 0.32 x10^3/uL (0.30-0.82); Monocytes % 5.2 % (5.3-12.2); Neutrophil % 84.6 % (34.0-67.9); Platelet Count 231 x10^3/uL (163-337); Red Cell Distribution Width 13.8 % (11.6-14.4); White Blood Count 6.2 x10^3/uL (4.23-9.07)
[2024-02-23 06:29] LABS: ALBUMIN 3.7 g/dL (3.5-5.0); BILIRUBIN,TOTAL 0.5 mg/dL (0.2-1.3); Calcium 10.3 mg/dL (8.4-10.2); Creatinine 1 1.15 mg/dL (0.66-1.25); EST GLOMERULAR FILTRATION RATE 62.8 ML/MIN; Potassium 4.4 mmol/L (3.5-5.1); Total Protein 6.2 g/dL (6.3-8.2)
[2024-02-23 06:52] LABS: ANION GAP 13.4 MEQ/L (5-15)
[2024-02-23 09:30] VITALS: RESP 18
[2024-02-23 11:40] VITALS: BP 135/60; PULSE 72; TEMP 97.7; O2SAT 97
--- NOTE | 2024-02-23 14:19 | PCM.DS ---
Discharge Summary Date of Admission: 02/20/24 01:15 Date of Discharge: 02/23/24 Admitting Physician: MELISSA DE OLIVEIRA MD Consults: Consults on Case 02/20/24 08:00 Consult Podiatry ROUTINE Primary Care Provider: SUE COLBERT Allergies Allergies Sulfa (Sulfonamide Antibiotics) Adverse Reaction (Verified 02/19/24 18:48) Hospital Summary - Hospital Course Hospital Course: Mr. Christina is an 83 year old with a pmhx of HLD, HTN, KAILEE, DMII, COPD, CHF, and BPH who presented to ED 02/19/24 with complaints of progressive shortness of breath. Patient was diagnosed by ED three week ago with pneumonia and was treated OP with one week of Cefdinir. Patient reports that he did not improve with abx therapy and was prompted to report to ED when he was unable to catch his breath sitting up which had been helping. CT of the chest was performed showing Bilateral moderate pleural effusion is noted with patches of consolidation/collapse in both lower lobes. Moderate cardiomegaly. Appearances may be secondary to acute infectious disease process/fluid overload secondary to a cardiogenic cause. Patient received a dose of levaquin in the ED. Lab findings unremarkable. Patient also following with podiatry for cellulitis of the LLE with wound culture x 2 showing stentrophomonas maltophilis sensitive to levaqu in. Plan to continue levaquin for coverage of both the wound culture and and any underlying pneumonia. Patient is baseline on RA, now on 4L oxygen. He states dyspnea has improved. No cough. Upon exam patient with noted BLE edema +2 pitting, diminished lung sounds with exp wheezing. Will start solumedrol and lasix. Patient most likely will need a few days of diuresis. Will continue BIPAP QHS. Echo pending -pre-allen tech review showing AI, MR, TR with estimated EF at 59%. Dyspnea and BLE edema improved. Patient requiring 2L of oxygen, will set up home oxygen. Plan for discharge home today with Levaquin/Lasix medrol dosepack. Advised follow up with cardiology, pcp, podiatry, and pulmonology. Patient agreeable to plan. Compression dressing changes per podiatry. Discharge Note New Diagnosis: CHF exac/pneumonia/cellulitis LLE New Medications: Levaquin/dose pack Follow Up: pcp/cards/ pulm/podiatry Latest Assessment & Plan (1) Acute respiratory failure with hypoxia Current Visit: No Status: Acute Assessment & Plan: -secondary to CHF/copd exacerbation, possible pneumonia -ABG/BIPAP as needed for increase lethargy/confusion -supplemental oxygen with goal spo2 88-92% -RT following- DuoNebs/bronchodilators/solu-medrol -Levaquin -RA at baseline - now at 2L from 4L on admission 02/22: -Qualified for home oxygen will set up Code(s): J96.01 - ACUTE RESPIRATORY FAILURE WITH HYPOXIA (2) Anemia Current Visit: Yes Status: Acute Assessment & Plan: -macrocytic -iron labs with b12 fol/ferritin Code(s): D64.9 - ANEMIA, UNSPECIFIED (3) BPH (benign prostatic hyperplasia) Current Visit: No Status: Acute Assessment & Plan: -continue proscar Code(s): N40.0 - BENIGN PROSTATIC HYPERPLASIA WITHOUT LOWER URINRY TRACT SYMP (4) COPD exacerbation Current Visit: No Status: Acute Assessment & Plan: -Supplemental oxygen with goal spo2 >88-92% -add advair/albuterol/duonebs -solumedrol -titrate -levaquin 02/20: -Lung sounds with increased aeration, no wheezing -Baseline RA with CPAP at night, 4L on admission, now at 2L -Continue levaquin/solumedrol 02/22: -medrol dose pack/levaquin -home oxygen at 2L -spo2 goal 88-92% Code(s): J44.1 - CHRONIC OBSTRUCTIVE PULMONARY DISEASE W (ACUTE) EXACERBATION (5) HTN (hypertension) Current Visit: No Status: Acute Assessment & Plan: -stable, continue home meds Code(s): I10 - ESSENTIAL (PRIMARY) HYPERTENSION (6) Left leg cellulitis Current Visit: No Status: Acute Assessment & Plan: --Podiatry following, culture with stentrophomonas maltophilis sensitive to levaquin- will continue -continue compression dressings per podiatry -culture pending from 02/20/24 of LLE -gram negative ID -blood cultures pending -ngtD 02/22: -bcult pending- ngtd -wound culture from 02/19 again with stentrophomonas maltophilis sensitive to levaquin- will continue -Podiatry/ ID as OP Code(s): L03.116 - CELLULITIS OF LEFT LOWER LIMB (7) KAILEE (obstructive sleep apnea) Current Visit: No Status: Acute Assessment & Plan: -Continue CPAP/BIPAP Code(s): G47.33 - OBSTRUCTIVE SLEEP APNEA (ADULT) (PEDIATRIC) (8) Pleural effusion Current Visit: Yes Status: Acute Assessment & Plan: -no echo on file - will obtain, pt unsure of cardiac history -Echo pending -pre-allen tech review showing AI, MR, TR with estimated EF at 59% - final read still pending 02/22/24 -BNP elevated at 1390 -consider cardiac consult if new onset 02/22: -Dyspnea improved, continue lasix on discharge Code(s): J90 - PLEURAL EFFUSION, NOT ELSEWHERE CLASSIFIED (9) Pneumonia Current Visit: Yes Status: Acute Assessment & Plan: -Continue Levaquin -Supplemental oxygen with goal spo2 88-92% - RT to qualify for home oxygen if unable to wean 02/21: -attempt to wean oxygen - qualify for home oxygen if needed -consider repeat CXR tomorrow 02/22: -continue home oxygen/levaquin/ medrol dose pack Code(s): J18.9 - PNEUMONIA, UNSPECIFIED ORGANISM (10) Type 2 diabetes mellitus Current Visit: No Status: Acute Assessment & Plan: -SSI, hold metformin -ADA diet -A1c at 5.61 -monitor blood glucose carefully in the setting of steroids I spent 35 minutes ajwn-[id number]-koie with the patient on the day of discharge performing discharge exam, discussing hospital stay and discharge instructions with patient and caregivers, preparation of discharge records, prescriptions & referral forms and addressing any questions/concerns the patient had as documented above. - Vitals & Intake/Output Vital Signs: Vital Signs Temperature 97.7 F 02/23/24 11:39 Pulse Rate 72 02/23/24 11:39 Respiratory Rate 18 02/23/24 11:39 Blood Pressure 135/60 02/23/24 11:39 O2 Sat by Pulse Oximetry 97 02/23/24 11:39 Intake & Output: Intake & Output 02/21/24 02/22/24 02/23/24 02/24/24 11:59 11:59 11:59 11:59 Intake Total 1389 1040 1310 120 Output Total 784 415 6923 Balance 682 868 -4160 120 Weight 88 kg 85.1 kg - Lab Result Diagrams: 02/23/24 05:47 02/23/24 05:47 Lab Results-Last 24 Hrs: Lab Results-Last 24 Hours 02/22/24 02/22/24 02/23/24 Range/Units 16:18 22:13 05:47 WBC 6.2 (4.23-9.07) x10^3/uL RBC 3.80 L (4.63-6.08) x10^6/uL Hgb 10.8 L (13.7-17.5) g/dL Hct 34.5 L (40.1-51.0) % MCV 90.8 (79.0-92.2) fL MCH 28.4 (25.7-32.2) pg MCHC 31.3 L (32.3-36.5) g/dL RDW 13.8 (11.6-14.4) % Plt Count 231 (163-337) x10^3/uL MPV 9.3 L (9.4-12.4) fL Gran % 84.6 H (34.0-67.9) % Immature Gran % (Auto) 0.5 H (0.001-0.429) % Nucleat RBC Rel Count 0.0 (0.00-0.2) % Eos # (Auto) 0 L (0.04-0.54) x10^3/uL Immature Gran # (Auto) 0.03 (0.001-0.031) x10^3u/L Absolute Lymphs (auto) 0.60 L (1.32-3.57) x10^3/uL Absolute Monos (auto) 0.32 (0.30-0.82) x10^3/uL Absolute Nucleated RBC 0.00 (0.00-0.012) x10^3u/L Lymphocytes % 9.7 L (21.8-53.1) % Monocytes % 5.2 L (5.3-12.2) % Eosinophils % 0.0 L (0.8-7.0) % Basophils % 0.0 L (0.2-1.2) % Absolute Granulocytes 5.22 (1.78-5.38) x10^3/uL Basophils # 0 L (0.01-0.08) x10^3/uL Sodium (135-145) mmol/L Potassium (3.5-5.1) mmol/L Chloride (98-107) mmol/L Carbon Dioxide (22-30) mmol/L Anion Gap (5-15) MEQ/L BUN (9-20) mg/dL Creatinine (0.66-1.25) mg/dL Estimated GFR ML/MIN Glucose (74-106) mg/dL POC Glucometer 181 H 143 H (74 to 106) mg/dL Calcium (8.4-10.2) mg/dL Total Bilirubin (0.2-1.3) mg/dL AST (17-59) U/L ALT (0-50) U/L Alkaline Phosphatase (38-126) U/L Serum Total Protein (6.3-8.2) g/dL Albumin (3.5-5.0) g/dL 02/23/24 02/23/24 02/23/24 Range/Units 05:47 07:05 10:50 WBC (4.23-9.07) x10^3/uL RBC (4.63-6.08) x10^6/uL Hgb (13.7-17.5) g/dL Hct (40.1-51.0) % MCV (79.0-92.2) fL MCH (25.7-32.2) pg MCHC (32.3-36.5) g/dL RDW (11.6-14.4) % Plt Count (163-337) x10^3/uL MPV (9.4-12.4) fL Gran % (34.0-67.9) % Immature Gran % (Auto) (0.001-0.429) % Nucleat RBC Rel Count (0.00-0.2) % Eos # (Auto) (0.04-0.54) x10^3/uL Immature Gran # (Auto) (0.001-0.031) x10^3u/L Absolute Lymphs (auto) (1.32-3.57) x10^3/uL Absolute Monos (auto) (0.30-0.82) x10^3/uL Absolute Nucleated RBC (0.00-0.012) x10^3u/L Lymphocytes % (21.8-53.1) % Monocytes % (5.3-12.2) % Eosinophils % (0.8-7.0) % Basophils % (0.2-1.2) % Absolute Granulocytes (1.78-5.38) x10^3/uL Basophils # (0.01-0.08) x10^3/uL Sodium 139 (135-145) mmol/L Potassium 4.4 (3.5-5.1) mmol/L Chloride 94 L (98-107) mmol/L Carbon Dioxide 36 H (22-30) mmol/L Anion Gap 13.4 (5-15) MEQ/L BUN 54 H (9-20) mg/dL Creatinine 1.15 (0.66-1.25) mg/dL Estimated GFR 62.8 ML/MIN Glucose 159 H (74-106) mg/dL POC Glucometer 129 H 232 H (74 to 106) mg/dL Calcium 10.3 H (8.4-10.2) mg/dL Total Bilirubin 0.50 (0.2-1.3) mg/dL AST 20 (17-59) U/L ALT 15 (0-50) U/L Alkaline Phosphatase 45 (38-126) U/L Serum Total Protein 6.2 L (6.3-8.2) g/dL Albumin 3.7 (3.5-5.0) g/dL Micro Results-Entire Visit: Microbiology 02/20/24 15:40 Wound Culture - Final Foot - Left Dorsal Stentrophomonas Maltophilis 02/19/24 19:20 Blood Culture - Preliminary Blood 02/19/24 18:40 Blood Culture - Preliminary Blood Accuchecks Date 02/23/24 Date 02/23/24 Date 02/22/24 Time 16:39 - Procedures and Test Procedures and Tests throughout Hospitalization: Therapy Orders & Screens 02/19/24 19:18 Respiratory Therapy Assessment DAILY Comment: 02/19/24 22:34 BiPap/CPAP ROUTINE Comment: 02/19/24 22:46 Standby ROUTINE Comment: 02/20/24 01:22 Respiratory Therapy Consult ONCE Comment: Reason For Exam: Diagnosis: SOB 02/20/24 02:31 Oxygen Nasal Cannula 4 lpm Comment: Diagnosis: SOB 02/20/24 07:47 Incentive Spirometry UD Comment: Diagnosis: SOB 02/20/24 08:00 PT Screen per Nursing Assess ONCE Comment: Protocol Order Physician Instructions: Greater than 3 points order PT Admission Screenin Reason For Exam: Triggered on Admission Diagnosis: SOB Open Wound/Cellutlitis/Pressure Ulcers: No Acute Fx/ORIF/Change in wt bearing status: No Severe MUSCULOSKELETAL pain: No ADL Dysfunction: Yes Acute CVA w/Hemiparesis/Hemiplegia: No Decreased Functional Mobility/Strength: Yes Sprain/Strain: No Acute Post-op Mobility Dysfunction: No Total Points: 4 02/20/24 13:30 Respiratory MDI BID Comment: Diagnosis: EXAC COPD, EXAC CHF 02/23/24 09:10 Qualify for Home Oxygen TODAY Comment: Diagnosis: EXAC COPD, EXAC CHF Discharge Exam General Appearance: no apparent distress Neurologic Exam: alert, oriented x 3, cooperative Eye Exam: PERRL Ears, Nose, Throat Exam: normal ENT inspection Neck Exam: normal inspection Respiratory Exam: diminished breath sounds Cardiovascular Exam: regular rate/rhythm, normal heart sounds Gastrointestinal/Abdomen Exam: soft, normal bowel sounds Male Genitalia Exam: deferred Rectal Exam: deferred Back Exam: normal inspection Extremity Exam: inflammation (BLE with compression dressings), swelling Wound Assessment: Skin/Wound Assessment Wound/Incision Assessment Start: 02/20/24 01:47 Text: Status: Active Freq: Q6H Protocol: Document 02/23/24 08:00 AR (Rec: 02/23/24 10:37 AR [id number]) Wound/Incision Assessment Coccyx Wound Assessment Shift Assessment Wound Type Maceration Wound Stage Non Pressure Wound Drainage Amount None Drainage Odor None/Absent General Appearance Well Approximated,Asymptomatic ,Open to air,Reddened Surrounding Tissue [place] Comment barrier cream applied PRN; position of wound is inferior to the coccyx, in the cleavage of the buttocks. Remains true Final Diagnosis/Problem List - Final Discharge Diagnosis/Problem (1) Acute respiratory failure with hypoxia Current Visit: No Status: Acute Code(s): J96.01 - ACUTE RESPIRATORY FAILURE WITH HYPOXIA (2) Anemia Current Visit: Yes Status: Chronic Code(s): D64.9 - ANEMIA, UNSPECIFIED (3) BPH (benign prostatic hyperplasia) Current Visit: No Status: Chronic Code(s): N40.0 - BENIGN PROSTATIC HYPERPLASIA WITHOUT LOWER URINRY TRACT SYMP (4) COPD exacerbation Current Visit: No Status: Chronic Code(s): J44.1 - CHRONIC OBSTRUCTIVE PULMONARY DISEASE W (ACUTE) EXACERBATION (5) HTN (hypertension) Current Visit: No Status: Chronic Code(s): I10 - ESSENTIAL (PRIMARY) HYPERTENSION (6) Left leg cellulitis Current Visit: No Status: Chronic Code(s): L03.116 - CELLULITIS OF LEFT LOWER LIMB (7) KAILEE (obstructive sleep apnea) Current Visit: No Status: Chronic Code(s): G47.33 - OBSTRUCTIVE SLEEP APNEA (ADULT) (PEDIATRIC) (8) Pleural effusion Current Visit: Yes Status: Acute Code(s): J90 - PLEURAL EFFUSION, NOT ELSEWHERE CLASSIFIED (9) Pneumonia Current Visit: Yes Status: Acute Code(s): J18.9 - PNEUMONIA, UNSPECIFIED ORGANISM (10) Type 2 diabetes mellitus Current Visit: No Status: Chronic - Discharge Disposition: Home, Self-Care Condition: Stable Prescriptions: New levoFLOXacin [Levofloxacin] 750 mg PO DAILY 5 Days #5 tablet Methylprednisolone Packet [Medrol Dosepack] 4 mg PO UD #30 packet Continue Fenofibrate 160 mg PO DAILY [place]-3 Fatty Acids/Fish Oil [Fish Oil 1,000 mg Softgel] 1 cap PO BID Metformin HCl 500 mg [Glucophage 500 MG] 500 mg PO BID Finasteride 5 mg [Proscar 5 MG] 5 mg PO DAILY Amlodipine Besylate [Norvasc] 10 mg PO DAILY Potassium Chloride [Klor-Con 8] 8 meq PO DAILY Furosemide [Lasix] 40 mg PO DAILY Albuterol Sulfate [Proair Hfa] 8.5 gm IH Q4HPRN PRN PRN Reason: Shortness Of Breath/Wheezing Metoprolol Succinate 50 mg [Toprol Xl 50 MG] 50 mg PO DAILY Additional Instructions: [facility] WILL CALL YOU TO MAKE AN APT TO COME SEE YOU. IF YOU NEED ANYTHING BEFORE THEIR FIRST VISIT YOU CAN REACH THEM AT [phone]. THEY WILL CHANGE YOUR DRESSINGS ON Sun AND FRIDAYS, LEAVE THEM INTACT BETWEEN VISITS Follow up with: MYRNA MILLER DPM [ACTIVE STAFF] - SUE COLBERT [Primary Care Provider] -
== END 2024-02-23 16:29 | disposition home or self-care (01) | DRG 189 ==
LOC: ED 18:30 → MED SURG 02-20 01:15 → OBSVTOIN 02-20 01:15 → MED SURG 02-20 01:15 → UNDOADMIN 02-20 01:15
PROVIDERS: ADMIT Student in an Organized Health Care Education/Training Program; ATTEND Student in an Organized Health Care Education/Training Program
DX: J96.01 Acute respiratory failure with hypoxia (principal); J18.9 Pneumonia, unspecified organism; J44.1 Chronic obstructive pulmonary disease with (acute) exacerbation; L03.116 Cellulitis of left lower limb; J90 Pleural effusion, not elsewhere classified; D64.9 Anemia, unspecified; N40.0 Benign prostatic hyperplasia without lower urinary tract symptoms; I10 Essential (primary) hypertension; G47.33 Obstructive sleep apnea (adult) (pediatric); E11.9 Type 2 diabetes mellitus without complications; E78.5 Hyperlipidemia, unspecified; R60.0 Localized edema; Z79.899 Other long term (current) drug therapy
CPT/HCPCS: 0241U; 29580; 36000; 36415; 71260; 74177; 80053; 81001; 82607; 82728; 82746; 82805; 82947; 83036; 83540; 83550; 83605; 83735; 83880; 84145; 84484; 85025; 87040; 87070; 87077; 87186; 93005; 93041; 93306; 94002; 94003; 94640; 94760; 94799; 96360; 96365; 96366; 96374; 96375; 99221; 99285; Q3014; J0456; J0696; J1650; J1817; J1940; J1956; J2405; J2919; J3010; A9270-GY

== ENCOUNTER 2024-04-14 18:22 | Inpatient (IN) | payer MEDICARE, OTHER ==
--- NOTE | 2024-04-14 18:42 | ERPHSYRPT ---
- History of Present Illness Patient Subjective Stated Complaint: complaining of shortness of breath Triage Nursing Assessment: Pt brought to ER by spouse and son for shortness of breath. states, "have had trouble breathing for about a week now." brought in by wheelchair, denies any pain, respiratory rate of 25, hypertensive, pulses normal, skin w/n/d, pt is on 3L of oxygen nasal cannula, Hx Tetanus, Diphtheria Vaccination/Date Given: No Hx Influenza Vaccination/Date Given: Yes Hx Pneumococcal Vaccination/Date Given: Yes <BRENDA LANG - Last Filed: 04/14/24 18:41> - History of Present Illness Source: patient Exam Limitations: no limitations Timing/Duration: today Activities at Onset: rest Severity of Dyspnea-Max: mild Severity of Dyspnea-Current: mild Possible Cause: occasional episodes Modifying Factors: Improves With: activity Associated Symptoms: cough <BRIAN PEACOCK - Last Filed: 04/15/24 09:09> - History of Present Illness Time Seen by Provider: 04/14/24 19:20 Allergies/Adverse Reactions: Sulfa (Sulfonamide Antibiotics) Adverse Reaction (Verified 04/14/24 21:45) Home Medications: Fenofibrate 160 mg PO DAILY 12/01/16 [History] Finasteride 5 mg [Proscar 5 MG] 5 mg PO DAILY 12/01/16 [History] Metformin HCl 500 mg [Glucophage 500 MG] 500 mg PO BID 12/01/16 [History] [place]-3 Fatty Acids/Fish Oil [Fish Oil 1,000 mg Softgel] 2 cap PO DAILY 12/01/16 [History] Albuterol Sulfate [Proair Hfa] 2 puffs IH Q4HPRN PRN 12/27/17 [History] Furosemide [Lasix] 40 mg PO BID 12/27/17 [History] Potassium Chloride [Klor-Con 8] 8 meq PO DAILY 12/27/17 [History] Metoprolol Succinate 50 mg [Toprol Xl 50 MG] 50 mg PO DAILY 03/23/21 [History] Acetaminophen 500 mg [Tylenol Extra Strength 500 mg] 500 mg PO BID 04/14/24 [History] Amlodipine Besylate [Norvasc] 10 mg PO DAILY 04/14/24 [History] Mv-Min/Folic/K1/Lycopen/Lutein [Centrum Silver Men Tablet] 1 each PO DAILY 04/14/24 [History] Vit A/Vit C/Vit E/Zinc/Copper [Preservision Areds Tablet] 1 tab PO BID 04/14/24 [History] Travel Risk - International Travel Have you traveled outside of the country in past 3 weeks: No - Emerging Infectious Disease Are you exhibiting symptoms associated with any current EIDs: Yes Symptoms: Shortness of Breath <BRENDA LANG - Last Filed: 04/14/24 18:41> - Review of Systems Constitutional: No Symptoms Eyes: No Symptoms Ears, Nose, & Throat: No Symptoms Respiratory: Cough, Dyspnea, Dyspnea on Exertion (SINGH) Cardiac: No Symptoms Abdominal/Gastrointestinal: No Symptoms Genitourinary Symptoms: No Symptoms Musculoskeletal: No Symptoms Skin: No Symptoms Neurological: No Symptoms Psychological: No Symptoms Endocrine: No Symptoms Hematologic/Lymphatic: No Symptoms Immunological/Allergic: No Symptoms All Other Systems: Reviewed and Negative <BRIAN PEACOCK - Last Filed: 04/15/24 09:09> - Past Medical History Pertinent Past Medical History: Yes Neurological History: No Pertinent History ENT History: Cataracts, Glaucoma Cardiac History: High Cholesterol, Hypertension Respiratory History: Sleep Apnea Endocrine Medical History: Diabetes Type II Musculoskeletal History: Arthritis GI Medical History: No Pertinent History History: Other Psycho-Social History: No Pertinent History Male Reproductive Disorders: Prostate Problems Other Medical History: hx of kidney stones, mass on right shoulder - Past Surgical History Past Surgical History: Yes Neuro Surgical History: No Pertinent History Cardiac: No Pertinent History Respiratory: No Pertinent History Gastrointestinal: Cholecystectomy, Hemorrhoidectomy, Hernia Repair Genitourinary: No Pertinent History Musculoskeletal: Other Male Surgical History: Prostate Surgery Other Surgical History: tumors removed from back, cataract/lens left eye january 2017 - Social History Smoking Status: Former smoker How long have you smoked: 20 years Exposure to second hand smoke: No Drug Use: none Patient Lives Alone: No - Social Determinants of Health Do you worry about a steady place to live?: No Do you have any problems with any of the following?: No known problems <BRENDA LANG - Last Filed: 04/14/24 18:41> - Physical Exam SpO2: 100 <BRENDA LANG - Last Filed: 04/14/24 18:41> - Physical Exam General Appearance: no apparent distress Eye Exam: PERRL/EOMI Ears, Nose, Throat Exam: hearing grossly normal Neck Exam: normal inspection Respiratory Exam: crackles/rales Cardiovascular/Chest Exam: normal heart sounds Abdominal/Gastrointestinal Exam: soft, normal bowel sounds Neurologic Exam: alert, oriented x 3 Skin Exam: normal color, warm SpO2 Interpretation: normal <BRIAN PEACOCK - Last Filed: 04/15/24 09:09> - Nursing Vital Signs Nursing Vital Signs: Initial Vital Signs Temperature 97.8 F 04/14/24 18:23 Pulse Rate 81 04/14/24 18:23 Respiratory Rate 22 04/14/24 18:23 Blood Pressure 150/60 04/14/24 18:23 O2 Sat by Pulse Oximetry 100 04/14/24 18:23 Pain Scale Pain Intensity 0 Ordered Tests: Active Orders 24 hr Category Date Time Status EKG-ER Only STAT Care 04/14/24 18:41 Completed IV Insertion STAT Care 04/14/24 18:41 Completed Pulse Oximetry (ED) STAT Care 04/14/24 18:41 Completed CHEST 1 VIEW (PORTABLE) Stat Exams 04/14/24 18:41 Completed CBC W DIFF Stat Lab 04/14/24 18:40 Completed CMP Stat Lab 04/14/24 18:40 Completed D-DIMER QUANTITATIVE Stat Lab 04/14/24 18:40 Completed Lactic Acid Stat Lab 04/14/24 19:10 Completed MAGNESIUM Stat Lab 04/14/24 18:40 Completed NT PRO BNPII Stat Lab 04/14/24 18:40 Completed PROTIME WITH INR Stat Lab 04/14/24 18:40 Completed Medication Summary Generic Name Dose Route Start Last Admin Trade Name Freq PRN Reason Stop Dose Admin Acetaminophen 650 mg 04/14/24 23:42 Acetaminophen 325 Mg Tablet PO 05/14/24 23:41 Q6H PRN PRN PAIN AND/OR FEVER Albuterol/Ipratropium 3 ml 04/14/24 23:42 Ipratropium/Albuterol Sulfate 3 Ml Ampul.Neb IH 05/14/24 23:41 Q4HPRN PRN SHORTNESS OF BREATH/WHEEZING Amlodipine Besylate 10 mg 04/15/24 10:00 Amlodipine Besylate 5 Mg Tablet PO 05/15/24 09:59 DAILY LIS Finasteride 5 mg 04/15/24 10:00 Finasteride 5 Mg Tablet PO 05/15/24 09:59 DAILY LIS Furosemide 80 mg 04/15/24 10:00 Furosemide 40 Mg/4 Ml Vial IV 05/15/24 09:59 BID DIURETIC LIS Insulin Human Lispro 0 unit 04/14/24 23:42 Insulin Lispro 1 Unit SQ 05/14/24 23:41 UD PRN HYPERGLYCEMIA Metoprolol Succinate 50 mg 04/15/24 10:00 Metoprolol Succinate 50 Mg Tablet.Sa PO 05/15/24 09:59 DAILY LIS Potassium Chloride 20 meq 04/15/24 07:30 04/15/24 08:18 Potassium Chloride Tab 10 Meq Tab PO 04/15/24 09:31 20 meq Q2H LIS Administration Potassium Chloride 10 meq 04/15/24 10:00 Potassium Chloride Tab 10 Meq Tab PO 05/15/24 09:59 DAILY LIS Discontinued Medications Generic Name Dose Route Start Last Admin Trade Name Freq PRN Reason Stop Dose Admin Furosemide 40 mg 04/14/24 20:39 04/14/24 20:47 Furosemide 40 Mg/4 Ml Vial IV 04/14/24 20:40 40 mg STAT ONE Administration Furosemide Confirm 04/14/24 20:43 Furosemide 40 Mg/4 Ml Vial Administered 04/14/24 20:44 Dose 40 mg .ROUTE .STK-MED ONE Furosemide 40 mg 04/14/24 23:44 04/15/24 00:00 Furosemide 40 Mg/4 Ml Vial IV 04/14/24 23:45 40 mg STAT ONE Administration Ceftriaxone Sodium 1 gm in 100 mls @ 200 mls/hr 04/14/24 20:39 04/14/24 20:47 Rocephin 1 Gm / 100 Ml Nacl IV 04/14/24 21:08 200 mls/hr STAT ONE 200 mls/hr Administration Ceftriaxone Sodium Confirm 04/14/24 20:43 Rocephin 1 Gm / 100 Ml Nacl Administered 04/14/24 20:44 Dose 1 gm in 100 mls @ ud IV .STK-MED ONE Magnesium Sulfate/Water 2 gm in 50 mls @ 100 mls/hr 04/15/24 04:00 04/15/24 03:55 Magnesium Sulf 2 G/50 Ml Bag IV 04/15/24 08:29 100 mls/hr Q4HT LIS Administration Lab/Rad Data: Laboratory Result Diagrams 04/14/24 18:40 04/14/24 18:40 Laboratory Results 04/14/24 04/14/24 04/14/24 Range/Units 19:10 18:50 18:40 WBC (4.23-9.07) x10^3/uL RBC (4.63-6.08) x10^6/uL Hgb (13.7-17.5) g/dL Hct (40.1-51.0) % MCV (79.0-92.2) fL MCH (25.7-32.2) pg MCHC (32.3-36.5) g/dL RDW (11.6-14.4) % Plt Count (163-337) x10^3/uL MPV (9.4-12.4) fL Gran % (34.0-67.9) % Immature Gran % (Auto) (0.001-0.429) % Nucleat RBC Rel Count (0.00-0.2) % Eos # (Auto) (0.04-0.54) x10^3/uL Immature Gran # (Auto) (0.001-0.031) x10^3u/L Absolute Lymphs (auto) (1.32-3.57) x10^3/uL Absolute Monos (auto) (0.30-0.82) x10^3/uL Absolute Nucleated RBC (0.00-0.012) x10^3u/L Lymphocytes % (21.8-53.1) % Monocytes % (5.3-12.2) % Eosinophils % (0.8-7.0) % Basophils % (0.2-1.2) % Absolute Granulocytes (1.78-5.38) x10^3/uL Basophils # (0.01-0.08) x10^3/uL PT (9.4-12.5) SECONDS INR (0.8-3.0) D-Dimer (0.0-0.50) mg/L Sodium (135-145) mmol/L Potassium (3.5-5.1) mmol/L Chloride (98-107) mmol/L Carbon Dioxide (22-30) mmol/L Anion Gap (5-15) MEQ/L BUN (9-20) mg/dL Creatinine (0.66-1.25) mg/dL Estimated GFR ML/MIN Glucose (74-106) mg/dL Lactic Acid 1.3 (0.4-2.0) Calcium (8.4-10.2) mg/dL Magnesium (1.6-2.3) mg/dL Total Bilirubin (0.2-1.3) mg/dL AST (17-59) U/L ALT (0-50) U/L Alkaline Phosphatase (38-126) U/L NT-Pro-B Natriuret Pep 1810 (<300) pg/mL Serum Total Protein (6.3-8.2) g/dL Albumin (3.5-5.0) g/dL Influenza Type A Ag NEGATIVE (NEGATIVE) Influenza Type B Ag NEGATIVE (NEGATIVE) RSV (PCR) NEGATIVE (NEGATIVE) SARS-CoV-2 (PCR) NEGATIVE (NEGATIVE) 04/14/24 04/14/24 04/14/24 Range/Units 18:40 18:40 18:40 WBC 5.9 (4.23-9.07) x10^3/uL RBC 3.42 L (4.63-6.08) x10^6/uL Hgb 9.6 L (13.7-17.5) g/dL Hct 31.6 L (40.1-51.0) % MCV 92.4 H (79.0-92.2) fL MCH 28.1 (25.7-32.2) pg MCHC 30.4 L (32.3-36.5) g/dL RDW 14.6 H (11.6-14.4) % Plt Count 214 (163-337) x10^3/uL MPV 8.8 L (9.4-12.4) fL Gran % 67.1 (34.0-67.9) % Immature Gran % (Auto) 0.5 H (0.001-0.429) % Nucleat RBC Rel Count 0.0 (0.00-0.2) % Eos # (Auto) 0.10 (0.04-0.54) x10^3/uL Immature Gran # (Auto) 0.03 (0.001-0.031) x10^3u/L Absolute Lymphs (auto) 1.16 L (1.32-3.57) x10^3/uL Absolute Monos (auto) 0.62 (0.30-0.82) x10^3/uL Absolute Nucleated RBC 0.00 (0.00-0.012) x10^3u/L Lymphocytes % 19.7 L (21.8-53.1) % Monocytes % 10.5 (5.3-12.2) % Eosinophils % 1.7 (0.8-7.0) % Basophils % 0.5 (0.2-1.2) % Absolute Granulocytes 3.96 (1.78-5.38) x10^3/uL Basophils # 0.03 (0.01-0.08) x10^3/uL PT 12.3 (9.4-12.5) SECONDS INR 1.14 (0.8-3.0) D-Dimer 0.36 (0.0-0.50) mg/L Sodium 139 (135-145) mmol/L Potassium 3.8 (3.5-5.1) mmol/L Chloride 91 L (98-107) mmol/L Carbon Dioxide 36 H (22-30) mmol/L Anion Gap 15.8 H (5-15) MEQ/L BUN 35 H (9-20) mg/dL Creatinine 1.03 (0.66-1.25) mg/dL Estimated GFR 71.6 ML/MIN Glucose 143 H (74-106) mg/dL Lactic Acid (0.4-2.0) Calcium 10.6 H (8.4-10.2) mg/dL Magnesium 1.5 L (1.6-2.3) mg/dL Total Bilirubin 0.40 (0.2-1.3) mg/dL AST 25 (17-59) U/L ALT 18 (0-50) U/L Alkaline Phosphatase 57 (38-126) U/L NT-Pro-B Natriuret Pep (<300) pg/mL Serum Total Protein 6.6 (6.3-8.2) g/dL Albumin 4.0 (3.5-5.0) g/dL Influenza Type A Ag (NEGATIVE) Influenza Type B Ag (NEGATIVE) RSV (PCR) (NEGATIVE) SARS-CoV-2 (PCR) (NEGATIVE) - Progress Air Movement: fair Antibiotics given: Yes Discussed with : Tez Will see patient in: hospital (observation) Counseled pt/family regarding: lab results, diagnosis, rad results <BRIAN PEACOCK - Last Filed: 04/15/24 09:09> - Progress Progress Note: Patient was seen and evaluated for dyspnea he has had some dyspnea with exertion, x-ray reveals mild CHF and bibasilar changes suggestive of an early infiltrate or atelectasis. Patient will be given Lasix Rocephin and Zithromax and was informed of the need for admission and is agreeable 04/14/24 20:38 04/14/24 21:30 Case was discussed with the hospitalist on-call, will admit the patient was informed that the patient was given Lasix Rocephin and Zithromax 04/14/24 21:31 She was informed of the plan and is agreeable and has no further questions at this time (BRIAN PEACOCK) Medical Desision Making - External Record(s) Reviewed Records reviewed as a part of evaluation & management: Inpatient - Discussion of managment Care discussed with:: hospitalist Reviewed:: Need for additional workup Agreed on:: decision to admit Will see patient: in hospital <BRIAN PEACOCK - Last Filed: 04/15/24 09:09> <BRENDA LANG - Last Filed: 04/14/24 18:41> - Departure Departure Disposition: Observation <BRIAN PEACOCK - Last Filed: 04/15/24 09:09> - Departure Clinical Impression: CHF exacerbation, SOB (shortness of breath), Right lower lobe pneumonia, Pneumonia, Anemia, Weakness Condition: Good
[2024-04-14 18:59] LABS: Absolute Neutrophil Ct (ANC) 3.96 x10^3/uL (1.78-5.38); BASOPHIL % 0.5 % (0.2-1.2); Basophil (Absolute #) 0.03 x10^3/uL (0.01-0.08); Eosinophil % 1.7 % (0.8-7.0); Hematocrit 31.6 % (40.1-51.0); Hemoglobin 9.6 g/dL (13.7-17.5); IMMATURE GRAN # 0.03 x10^3u/L (0.001-0.031); IMMATURE GRAN % 0.5 % (0.001-0.429); Lymphocyte (Absolute #) 1.16 x10^3/uL (1.32-3.57); Lymphocytes % 19.7 % (21.8-53.1); Mean Cell Volume 92.4 fL (79.0-92.2); Mean Corpuscular Hemoglobin 28.1 pg (25.7-32.2); Mean Corpuscular Hgb Concent. 30.4 g/dL (32.3-36.5); Mean Platelet Volume 8.8 fL (9.4-12.4); Monocyte (Absolute #) 0.62 x10^3/uL (0.30-0.82); Monocytes % 10.5 % (5.3-12.2); Neutrophil % 67.1 % (34.0-67.9); Platelet Count 214 x10^3/uL (163-337); Red Blood Count 3.42 x10^6/uL (4.63-6.08); Red Cell Distribution Width 14.6 % (11.6-14.4); White Blood Count 5.9 x10^3/uL (4.23-9.07)
[2024-04-14 19:12] LABS: BILIRUBIN,TOTAL 0.4 mg/dL (0.2-1.3); Calcium 10.6 mg/dL (8.4-10.2); Creatinine 1 1.03 mg/dL (0.66-1.25); EST GLOMERULAR FILTRATION RATE 71.6 ML/MIN; MAGNESIUM 1.5 mg/dL (1.6-2.3); Potassium 3.8 mmol/L (3.5-5.1); Total Protein 6.6 g/dL (6.3-8.2)
[2024-04-14 19:14] LABS: D-DIMER QUANTITATIVE 0.36 mg/L (0.0-0.50); INR 1.14 (0.8-3.0); PROTIME 12.3 SECONDS (9.4-12.5)
[2024-04-14 19:30] LABS: ANION GAP 15.8 MEQ/L (5-15)
[2024-04-14 19:36] LABS: INFLUENZA A NEGATIVE (NEGATIVE); INFLUENZA B NEGATIVE (NEGATIVE); RESPIRATORY SYNCTIAL VIRUS NEGATIVE (NEGATIVE); SARS-CoV-2 Xpert Express NEGATIVE (NEGATIVE)
[2024-04-14] MEDS ORDERED: ROCEPHIN 1 GM / 100 ML NaCl 1 GM/100 ML IVPB IV ONE (20:43)
[2024-04-14] MEDS ORDERED: Lasix 40 MG/4 ML ONE (20:43)
[2024-04-14] MEDS: Lasix 40 MG/4 ML IV ONE (20:47)
[2024-04-14] MEDS: ROCEPHIN 1 GM / 100 ML NaCl 1 GM/100 ML IVPB IV ONE (20:47)
[2024-04-14] MEDS ORDERED: HUMALOG SQ PRN (23:42)
[2024-04-14] MEDS ORDERED: DUONEB 0.5-3 MG/3 ml Neb IH PRN (23:42)
--- NOTE | 2024-04-14 23:55 | PCM.HP ---
History of Present Illness - Chief Complaint Chief Complaint: shortness of breath Date: 04/14/24 History of Present Illness: 83-year-old man with history of diastolic heart failure, COPD on 2 L oxygen chronically, KAILEE on nocturnal CPAP, and type 2 diabetes, who presents with 2 days of dyspnea. Of note, patient was admitted 6 weeks ago for COPD exacerbation and pneumonia. Patient notes that after he was discharged, he was doing quite well. However, for the past 2 days, he has had progressive worsening shortness of breath, having to increase his chronic 2 L oxygen to 3 L, associated with orthopnea, requiring him to sleep in a recliner, PND, and early satiety. He has had some left leg swelling for some time for which he has been working with podiatry for cellulitis versus stasis dermatitis, but he is now noticing some swelling in the right leg as well. He denies any change in his chronic productive cough, and denies any wheezing, fevers, nasal congestion, sore throat, chest pain, or sick contacts. He denies any change in his medications or diet recently, and states he has been compliant with his Lasix. - Review of Systems Constitutional: No Fever, No Chills, No Weakness Eyes: Vision Changes, No Eye Redness Ears, Nose, & Throat: No Nose Congestion, No Sinus Drainage, No Throat Pain Respiratory: Cough (Unchanged chronic cough), Orthopnea, Short Of Breath, No Wheezing Cardiac: Edema, Orthopnea, PND, No Chest Pain Abdominal/Gastrointestinal: Diarrhea (2 loose nonbloody BM this morning), No Abdominal Pain, No Nausea, No Vomiting Genitourinary Symptoms: No Dysuria, No Frequency Neurological: No Focal Weakness, No Sensory Changes Medications & Allergies Home Medications: Home Medication List Fenofibrate 160 mg PO DAILY 12/01/16 [History Confirmed 04/14/24] Finasteride 5 mg [Proscar 5 MG] 5 mg PO DAILY 12/01/16 [History Confirmed 04/14/24] Metformin HCl 500 mg [Glucophage 500 MG] 500 mg PO BID 12/01/16 [History Confirmed 04/14/24] [place]-3 Fatty Acids/Fish Oil [Fish Oil 1,000 mg Softgel] 2 cap PO DAILY 12/01/16 [History Confirmed 04/14/24] Albuterol Sulfate [Proair Hfa] 2 puffs IH Q4HPRN PRN 12/27/17 [History Confirmed 04/14/24] Furosemide [Lasix] 40 mg PO BID 12/27/17 [History Confirmed 04/14/24] Potassium Chloride [Klor-Con 8] 8 meq PO DAILY 12/27/17 [History Confirmed 04/14/24] Metoprolol Succinate 50 mg [Toprol Xl 50 MG] 50 mg PO DAILY 03/23/21 [History Confirmed 04/14/24] Acetaminophen 500 mg [Tylenol Extra Strength 500 mg] 500 mg PO BID 04/14/24 [History Confirmed 04/14/24] Amlodipine Besylate [Norvasc] 10 mg PO DAILY 04/14/24 [History Confirmed 0 04/14/24] Mv-Min/Folic/K1/Lycopen/Lutein [Centrum Silver Men Tablet] 1 each PO DAILY 04/14/24 [History Confirmed 04/14/24] Vit A/Vit C/Vit E/Zinc/Copper [Preservision Areds Tablet] 1 tab PO BID 04/14/24 [History Confirmed 04/14/24] Allergies/Adverse Reactions: Allergies Allergy/AdvReac Type Severity Reaction Status Date / Time Sulfa (Sulfonamide AdvReac Verified 04/14/24 21:45 Antibiotics) - Past Medical History Past Medical History: Yes Neurological History: No Pertinent History ENT History: Cataracts, Glaucoma, Macular Degeneration Cardiac History: Congestive Heart Failure (Diastolic), High Cholesterol, Hypertension Respiratory History: Sleep Apnea (On CPAP at 12 cmH2O) Endocrine Medical History: Diabetes Type II Musculoskelatal History: Arthritis GI Medical History: No Pertinent History History: Other Pyscho-Social History: No Pertinent History Male Reproductive Disorders: Prostate Problems Comment: hx of kidney stones, mass on BOTH shoulderS - Past Surgical History Past Surgical History: Yes Neuro Surgical History: No Pertinent History Cardiac History: No Pertinent History Respiratory Surgery: No Pertinent History GI Surgical History: Cholecystectomy, Hemorrhoidectomy Genitourinary Surgical Hx: No Pertinent History Musculskeletal Surgical Hx: Other Male Surgical History: Prostate Surgery Other Surgical History: tumors removed from back, cataract/lens left eye january 2017 Significant Family History: no pertinent family hx - Social History Smoking Status: Former smoker How long have you smoked: 20 years Exposure to second hand smoke: No Alcohol: None Drug Use: none - Social Determinants of Health Will the patient participate in the screening: Yes Do you worry about a steady place to live?: No Do you have any problems with any of the following?: Pest (bugs,ants,or mice) In the past 12 months,have you had to go without utilities?: No Have you or anyone in your house had to go without enough: No Transportation Issues: No Has anyone in your support network made you feel unsafe?: No Does the patient want assistance with any of the above?: No - Physical Exam Vital Signs: Vital Signs - 24 hr Temp Pulse Resp BP BP Pulse Ox 04/14/24 22:29 97.3 F 93 H 26 H 141/70 94 L 04/14/24 22:01 95 H 27 H 147/81 04/14/24 21:40 83 23 100 04/14/24 21:36 102 H 18 94 L 04/14/24 21:00 157/66 04/14/24 20:30 90 18 134/55 100 04/14/24 20:00 81 16 138/54 100 04/14/24 19:30 85 18 145/79 100 04/14/24 19:01 79 24 149/62 100 04/14/24 18:51 100 04/14/24 18:42 100 04/14/24 18:31 80 21 150/60 99 04/14/24 18:23 97.8 F 81 25 H 150/60 100 GEN: Sitting up in bed in no acute distress NEURO: No focal deficits CV: Regular rate and rhythm. 3/6 systolic murmur at the left upper sternal border. Compression wrappings over both legs, but mild edema bilaterally. PULM: Mild wet rales at the bilateral bases. Moving air well. No wheezing. On 3 L oxygen by nasal cannula. ABD: Soft, non-distended, normoactive bowel sounds PSYCH: Alert, oriented x3 Results - Labs Lab/Micro Results: Lab Results-Last 24 Hours 04/14/24 04/14/24 04/14/24 Range/Units 18:40 18:40 18:40 WBC 5.9 (4.23-9.07) x10^3/uL RBC 3.42 L (4.63-6.08) x10^6/uL Hgb 9.6 L (13.7-17.5) g/dL Hct 31.6 L (40.1-51.0) % MCV 92.4 H (79.0-92.2) fL MCH 28.1 (25.7-32.2) pg MCHC 30.4 L (32.3-36.5) g/dL RDW 14.6 H (11.6-14.4) % Plt Count 214 (163-337) x10^3/uL MPV 8.8 L (9.4-12.4) fL Gran % 67.1 (34.0-67.9) % Immature Gran % (Auto) 0.5 H (0.001-0.429) % Nucleat RBC Rel Count 0.0 (0.00-0.2) % Eos # (Auto) 0.10 (0.04-0.54) x10^3/uL Immature Gran # (Auto) 0.03 (0.001-0.031) x10^3u/L Absolute Lymphs (auto) 1.16 L (1.32-3.57) x10^3/uL Absolute Monos (auto) 0.62 (0.30-0.82) x10^3/uL Absolute Nucleated RBC 0.00 (0.00-0.012) x10^3u/L Lymphocytes % 19.7 L (21.8-53.1) % Monocytes % 10.5 (5.3-12.2) % Eosinophils % 1.7 (0.8-7.0) % Basophils % 0.5 (0.2-1.2) % Absolute Granulocytes 3.96 (1.78-5.38) x10^3/uL Basophils # 0.03 (0.01-0.08) x10^3/uL PT 12.3 (9.4-12.5) SECONDS INR 1.14 (0.8-3.0) D-Dimer 0.36 (0.0-0.50) mg/L Sodium 139 (135-145) mmol/L Potassium 3.8 (3.5-5.1) mmol/L Chloride 91 L (98-107) mmol/L Carbon Dioxide 36 H (22-30) mmol/L Anion Gap 15.8 H (5-15) MEQ/L BUN 35 H (9-20) mg/dL Creatinine 1.03 (0.66-1.25) mg/dL Estimated GFR 71.6 ML/MIN Glucose 143 H (74-106) mg/dL Lactic Acid (0.4-2.0) Calcium 10.6 H (8.4-10.2) mg/dL Magnesium 1.5 L (1.6-2.3) mg/dL Total Bilirubin 0.40 (0.2-1.3) mg/dL AST 25 (17-59) U/L ALT 18 (0-50) U/L Alkaline Phosphatase 57 (38-126) U/L NT-Pro-B Natriuret Pep (<300) pg/mL Serum Total Protein 6.6 (6.3-8.2) g/dL Albumin 4.0 (3.5-5.0) g/dL Influenza Type A Ag (NEGATIVE) Influenza Type B Ag (NEGATIVE) RSV (PCR) (NEGATIVE) SARS-CoV-2 (PCR) (NEGATIVE) 04/14/24 04/14/24 04/14/24 Range/Units 18:40 18:50 19:10 WBC (4.23-9.07) x10^3/uL RBC (4.63-6.08) x10^6/uL Hgb (13.7-17.5) g/dL Hct (40.1-51.0) % MCV (79.0-92.2) fL MCH (25.7-32.2) pg MCHC (32.3-36.5) g/dL RDW (11.6-14.4) % Plt Count (163-337) x10^3/uL MPV (9.4-12.4) fL Gran % (34.0-67.9) % Immature Gran % (Auto) (0.001-0.429) % Nucleat RBC Rel Count (0.00-0.2) % Eos # (Auto) (0.04-0.54) x10^3/uL Immature Gran # (Auto) (0.001-0.031) x10^3u/L Absolute Lymphs (auto) (1.32-3.57) x10^3/uL Absolute Monos (auto) (0.30-0.82) x10^3/uL Absolute Nucleated RBC (0.00-0.012) x10^3u/L Lymphocytes % (21.8-53.1) % Monocytes % (5.3-12.2) % Eosinophils % (0.8-7.0) % Basophils % (0.2-1.2) % Absolute Granulocytes (1.78-5.38) x10^3/uL Basophils # (0.01-0.08) x10^3/uL PT (9.4-12.5) SECONDS INR (0.8-3.0) D-Dimer (0.0-0.50) mg/L Sodium (135-145) mmol/L Potassium (3.5-5.1) mmol/L Chloride (98-107) mmol/L Carbon Dioxide (22-30) mmol/L Anion Gap (5-15) MEQ/L BUN (9-20) mg/dL Creatinine (0.66-1.25) mg/dL Estimated GFR ML/MIN Glucose (74-106) mg/dL Lactic Acid 1.3 (0.4-2.0) Calcium (8.4-10.2) mg/dL Magnesium (1.6-2.3) mg/dL Total Bilirubin (0.2-1.3) mg/dL AST (17-59) U/L ALT (0-50) U/L Alkaline Phosphatase (38-126) U/L NT-Pro-B Natriuret Pep 1810 (<300) pg/mL Serum Total Protein (6.3-8.2) g/dL Albumin (3.5-5.0) g/dL Influenza Type A Ag NEGATIVE (NEGATIVE) Influenza Type B Ag NEGATIVE (NEGATIVE) RSV (PCR) NEGATIVE (NEGATIVE) SARS-CoV-2 (PCR) NEGATIVE (NEGATIVE) - Radiology Impressions Radiology Exams & Impressions: Radiology Procedures Category Date Time Status CHEST 1 VIEW (PORTABLE) Stat Exams 04/14/24 18:41 Taken Chest x-ray bibasilar atelectasis, with small left pleural effusion. Compared to prior chest x-rays from 6 weeks ago ago, slight worsening of the atelectasis. Unchanged cephalization and slight improvement in the right pleural effusion. (Images personally reviewed.) Echocardiogram from February, noted preserved EF, grade 1 diastolic d ysfunction, mild aortic stenosis, but already elevated right ventricular systolic pressure estimated at greater than 60. - Other Procedures and Tests Respiratory Therapy 04/14/24 23:42 Oxygen Nasal Cannula 2 lpm 04/14/24 23:44 BiPap/CPAP ROUTINE Assessment/Plan (1) CHF exacerbation Current Visit: Yes Status: Acute Assessment & Plan: 83-year-old man with history of diastolic heart failure, COPD on oxygen, KAILEE on CPAP, and type 2 diabetes, here with acute on chronic diastolic heart failure. ## Acute on chronic diastolic heart failure patient is chronically on Lasix, and recent echo shows heart failure with preserved EF. Of note, even at that point he had some elevated filling pressures. I suspect he has been slowly increasing since his discharge, and his BNP is increased from 1390 to 1810. His history is not consistent with either pneumonia or COPD, given his lack of fever, unchanged cough, no new infiltrates on chest x-ray, no congestion, and no wheezing. Instead, he has all the hallmarks of a CHF exacerbation including orthopnea, PND, and early satiety. Admit under observation Start Lasix 80 mg IV BID (this is 2 times with home oral dose, consistent with usage during the DOSE trial for diuresis of CHF exacerbation) Follow on telemetry Follow electrolytes and creatinine Continue to treat KAILEE as below ## Hypomagnesemia noted on arrival. Would likely worsen with diuresis. Give magnesium 4 g IV x 1 over 4 hours Repeat magnesium in the morning ## KAILEE patient did not bring his home CPAP in, but he believes he is on a setting of 12 at home. Resume nocturnal CPAP at 12 cm of water ## Type 2 diabetes only on metformin at home. Cover with low-dose sliding scale insulin ## Chronic normocytic anemia mildly anemic, essentially at his baseline. Repeat CBC in the morning May need further workup as an outpatient ## COPD does not appear to be in an exacerbation currently. He is on 2 L oxygen at home. Continue oxygen PRN albuterol ## Hypertension blood pressure currently controlled Continue amlodipine and metoprolol from home CODE STATUS: Full code Prophylaxis: No pharmacologic prophylaxis (Kuldeep over score is only 2. Of note, EMR derived rescore is inaccurate as it believes patient is on oral contraceptives.) Diet: Low-sodium, diabetic Code(s): I50.9 - HEART FAILURE, UNSPECIFIED Telemedicine Encounter - Telemedicine Encounter Telemedicine Encounter: "The entirety of this encounter was performed via Telemedicine" This visit was performed using real-time audio and video connection between my location and thepatients locationwith the assistance of a surrogateat the patients location. Written or verbal consent was obtained from the patient/guardian to perform this visit usingsynchronoustelemedicine technology. Any patient questions regarding the telemedicine interaction were answered.
[2024-04-15] MEDS: Lasix 40 MG/4 ML IV ONE
[2024-04-15] MEDS: MAGNESIUM SULF 2 G/50 ML BAG 2 GM/50 ML PIGGYBACK IV SCH (00:51)
[2024-04-15 04:39] LABS: Hematocrit 30.1 % (40.1-51.0); Hemoglobin 9.4 g/dL (13.7-17.5); Mean Cell Volume 90.9 fL (79.0-92.2); Mean Corpuscular Hemoglobin 28.4 pg (25.7-32.2); Mean Corpuscular Hgb Concent. 31.2 g/dL (32.3-36.5); Mean Platelet Volume 9.1 fL (9.4-12.4); Platelet Count 217 x10^3/uL (163-337); Red Blood Count 3.31 x10^6/uL (4.63-6.08); Red Cell Distribution Width 14.9 % (11.6-14.4); White Blood Count 7.5 x10^3/uL (4.23-9.07)
[2024-04-15 04:58] LABS: Calcium 10.5 mg/dL (8.4-10.2); Creatinine 1 0.93 mg/dL (0.66-1.25); MAGNESIUM 2.8 mg/dL (1.6-2.3); Potassium 3.4 mmol/L (3.5-5.1)
[2024-04-15 05:12] LABS: ANION GAP 13.4 MEQ/L (5-15)
--- NOTE | 2024-04-15 05:12 | PCM.NOTE ---
Date and Time: 04/15/24 0502 Subjective Assessment: HPI: 83-year-old man with history of diastolic heart failure, COPD on 2 L oxygen chronically, KAILEE on nocturnal CPAP, and type 2 diabetes, who presents with 2 days of dyspnea. Of note, patient was admitted 6 weeks ago for COPD exacerbation and pneumonia. Patient notes that after he was discharged, he was doing quite well. However, for the past 2 days, he has had progressive worsening shortness of breath, having to increase his chronic 2 L oxygen to 3 L, associated with orthopnea, requiring him to sleep in a recliner, PND, and early satiety. He has had some left leg swelling for some time for which he has been working with podiatry for cellulitis versus stasis dermatitis, but he is now noticing some swelling in the right leg as well. He denies any change in his chronic productive cough, and denies any wheezing, fevers, nasal congestion, sore throat, chest pain, or sick contacts. He denies any change in his medications or diet recently, and states he has been compliant with his Lasix. 04/15/24: Patient up in chair. Endorses improvement with dyspnea. At his baseline of 2L. On exam he is noted with BLE edema L>R 2/3 + pitting. Lung sound diminished on auscultation. Balance output at -2059. Lab with hypokalemia this morning -being replenished. Denies fever, cp, abdominal pain, TREVIÑO, dizziness, N/V/D. <PAT SILVERMAN - Last Filed: 04/15/24 11:42> Date and Time: 04/15/24 1456 <GAEL VAUGHN - Last Filed: 04/15/24 14:57> - Review of Systems Constitutional: No Symptoms Eyes: No Symptoms Ears, Nose, & Throat: No Symptoms Respiratory: Cough, Orthopnea, Short Of Breath Cardiac: Edema Abdominal/Gastrointestinal: No Symptoms Genitourinary Symptoms: No Symptoms Musculoskeletal: No Symptoms Skin: No Symptoms Neurological: No Symptoms Psychological: No Symptoms Endocrine: No Symptoms Hematologic/Lymphatic: No Symptoms Immunological/Allergic: No Symptoms <PAT SILVERMAN - Last Filed: 04/15/24 11:42> Objective Exam General Appearance: no apparent distress Neurologic Exam: alert, oriented x 3, cooperative Skin Exam: normal color Eye Exam: PERRL Ears, Nose, Throat Exam: normal ENT inspection Neck Exam: normal inspection Respiratory Exam: diminished breath sounds Cardiovascular Exam: regular rate/rhythm, normal heart sounds Gastrointestinal/Abdomen Exam: soft, normal bowel sounds Extremity Exam: pedal edema, swelling (BLE L>R 3/2 pitting) Back Exam: normal inspection Male Genitalia Exam: deferred Rectal Exam: deferred <PAT SILVERMAN - Last Filed: 04/15/24 11:42> Objective Data Vital Signs: Vital Signs - 24 hr Temp Pulse Resp BP BP Pulse Ox 04/15/24 03:54 97.3 F 85 20 150/66 93 L 04/15/24 01:00 86 16 96 04/14/24 23:52 94 L 04/14/24 22:29 97.3 F 93 H 26 H 141/70 94 L 04/14/24 22:01 95 H 27 H 147/81 04/14/24 21:40 83 23 100 04/14/24 21:36 102 H 18 94 L 04/14/24 21:00 157/66 04/14/24 20:30 90 18 134/55 100 04/14/24 20:00 81 16 138/54 100 04/14/24 19:30 85 18 145/79 100 04/14/24 19:01 79 24 149/62 100 04/14/24 18:51 100 04/14/24 18:42 100 04/14/24 18:31 80 21 150/60 99 04/14/24 18:23 97.8 F 81 25 H 150/60 100 Pain Assessment - Last Documented Pain Intensity 0 Intake and Output: Intake & Output 04/12/24 04/13/24 04/14/24 04/15/24 11:59 11:59 11:59 11:59 Intake Total 120 Output Total 1700 Balance -1580 Weight 83.3 kg Lab Results: Lab Results-Last 24 Hours 04/14/24 04/14/24 04/14/24 Range/Units 18:40 18:40 18:40 WBC 5.9 (4.23-9.07) x10^3/uL RBC 3.42 L (4.63-6.08) x10^6/uL Hgb 9.6 L (13.7-17.5) g/dL Hct 31.6 L (40.1-51.0) % MCV 92.4 H (79.0-92.2) fL MCH 28.1 (25.7-32.2) pg MCHC 30.4 L (32.3-36.5) g/dL RDW 14.6 H (11.6-14.4) % Plt Count 214 (163-337) x10^3/uL MPV 8.8 L (9.4-12.4) fL Gran % 67.1 (34.0-67.9) % Immature Gran % (Auto) 0.5 H (0.001-0.429) % Nucleat RBC Rel Count 0.0 (0.00-0.2) % Eos # (Auto) 0.10 (0.04-0.54) x10^3/uL Immature Gran # (Auto) 0.03 (0.001-0.031) x10^3u/L Absolute Lymphs (auto) 1.16 L (1.32-3.57) x10^3/uL Absolute Monos (auto) 0.62 (0.30-0.82) x10^3/uL Absolute Nucleated RBC 0.00 (0.00-0.012) x10^3u/L Lymphocytes % 19.7 L (21.8-53.1) % Monocytes % 10.5 (5.3-12.2) % Eosinophils % 1.7 (0.8-7.0) % Basophils % 0.5 (0.2-1.2) % Absolute Granulocytes 3.96 (1.78-5.38) x10^3/uL Basophils # 0.03 (0.01-0.08) x10^3/uL PT 12.3 (9.4-12.5) SECONDS INR 1.14 (0.8-3.0) D-Dimer 0.36 (0.0-0.50) mg/L Sodium 139 (135-145) mmol/L Potassium 3.8 (3.5-5.1) mmol/L Chloride 91 L (98-107) mmol/L Carbon Dioxide 36 H (22-30) mmol/L Anion Gap 15.8 H (5-15) MEQ/L BUN 35 H (9-20) mg/dL Creatinine 1.03 (0.66-1.25) mg/dL Estimated GFR 71.6 ML/MIN Glucose 143 H (74-106) mg/dL Lactic Acid (0.4-2.0) Calcium 10.6 H (8.4-10.2) mg/dL Magnesium 1.5 L (1.6-2.3) mg/dL Total Bilirubin 0.40 (0.2-1.3) mg/dL AST 25 (17-59) U/L ALT 18 (0-50) U/L Alkaline Phosphatase 57 (38-126) U/L NT-Pro-B Natriuret Pep (<300) pg/mL Serum Total Protein 6.6 (6.3-8.2) g/dL Albumin 4.0 (3.5-5.0) g/dL Influenza Type A Ag (NEGATIVE) Influenza Type B Ag (NEGATIVE) RSV (PCR) (NEGATIVE) SARS-CoV-2 (PCR) (NEGATIVE) 04/14/24 04/14/24 04/14/24 Range/Units 18:40 18:50 19:10 WBC (4.23-9.07) x10^3/uL RBC (4.63-6.08) x10^6/uL Hgb (13.7-17.5) g/dL Hct (40.1-51.0) % MCV (79.0-92.2) fL MCH (25.7-32.2) pg MCHC (32.3-36.5) g/dL RDW (11.6-14.4) % Plt Count (163-337) x10^3/uL MPV (9.4-12.4) fL Gran % (34.0-67.9) % Immature Gran % (Auto) (0.001-0.429) % Nucleat RBC Rel Count (0.00-0.2) % Eos # (Auto) (0.04-0.54) x10^3/uL Immature Gran # (Auto) (0.001-0.031) x10^3u/L Absolute Lymphs (auto) (1.32-3.57) x10^3/uL Absolute Monos (auto) (0.30-0.82) x10^3/uL Absolute Nucleated RBC (0.00-0.012) x10^3u/L Lymphocytes % (21.8-53.1) % Monocytes % (5.3-12.2) % Eosinophils % (0.8-7.0) % Basophils % (0.2-1.2) % Absolute Granulocytes (1.78-5.38) x10^3/uL Basophils # (0.01-0.08) x10^3/uL PT (9.4-12.5) SECONDS INR (0.8-3.0) D-Dimer (0.0-0.50) mg/L Sodium (135-145) mmol/L Potassium (3.5-5.1) mmol/L Chloride (98-107) mmol/L Carbon Dioxide (22-30) mmol/L Anion Gap (5-15) MEQ/L BUN (9-20) mg/dL Creatinine (0.66-1.25) mg/dL Estimated GFR ML/MIN Glucose (74-106) mg/dL Lactic Acid 1.3 (0.4-2.0) Calcium (8.4-10.2) mg/dL Magnesium (1.6-2.3) mg/dL Total Bilirubin (0.2-1.3) mg/dL AST (17-59) U/L ALT (0-50) U/L Alkaline Phosphatase (38-126) U/L NT-Pro-B Natriuret Pep 1810 (<300) pg/mL Serum Total Protein (6.3-8.2) g/dL Albumin (3.5-5.0) g/dL Influenza Type A Ag NEGATIVE (NEGATIVE) Influenza Type B Ag NEGATIVE (NEGATIVE) RSV (PCR) NEGATIVE (NEGATIVE) SARS-CoV-2 (PCR) NEGATIVE (NEGATIVE) 04/15/24 Range/Units 04:40 WBC 7.5 (4.23-9.07) x10^3/uL RBC 3.31 L (4.63-6.08) x10^6/uL Hgb 9.4 L (13.7-17.5) g/dL Hct 30.1 L (40.1-51.0) % MCV 90.9 (79.0-92.2) fL MCH 28.4 (25.7-32.2) pg MCHC 31.2 L (32.3-36.5) g/dL RDW 14.9 H (11.6-14.4) % Plt Count 217 (163-337) x10^3/uL MPV 9.1 L (9.4-12.4) fL Gran % (34.0-67.9) % Immature Gran % (Auto) (0.001-0.429) % Nucleat RBC Rel Count (0.00-0.2) % Eos # (Auto) (0.04-0.54) x10^3/uL Immature Gran # (Auto) (0.001-0.031) x10^3u/L Absolute Lymphs (auto) (1.32-3.57) x10^3/uL Absolute Monos (auto) (0.30-0.82) x10^3/uL Absolute Nucleated RBC (0.00-0.012) x10^3u/L Lymphocytes % (21.8-53.1) % Monocytes % (5.3-12.2) % Eosinophils % (0.8-7.0) % Basophils % (0.2-1.2) % Absolute Granulocytes (1.78-5.38) x10^3/uL Basophils # (0.01-0.08) x10^3/uL PT (9.4-12.5) SECONDS INR (0.8-3.0) D-Dimer (0.0-0.50) mg/L Sodium (135-145) mmol/L Potassium (3.5-5.1) mmol/L Chloride (98-107) mmol/L Carbon Dioxide (22-30) mmol/L Anion Gap (5-15) MEQ/L BUN (9-20) mg/dL Creatinine (0.66-1.25) mg/dL Estimated GFR ML/MIN Glucose (74-106) mg/dL Lactic Acid (0.4-2.0) Calcium (8.4-10.2) mg/dL Magnesium (1.6-2.3) mg/dL Total Bilirubin (0.2-1.3) mg/dL AST (17-59) U/L ALT (0-50) U/L Alkaline Phosphatase (38-126) U/L NT-Pro-B Natriuret Pep (<300) pg/mL Serum Total Protein (6.3-8.2) g/dL Albumin (3.5-5.0) g/dL Influenza Type A Ag (NEGATIVE) Influenza Type B Ag (NEGATIVE) RSV (PCR) (NEGATIVE) SARS-CoV-2 (PCR) (NEGATIVE) Radiology Exams: Radiology Procedures Category Date Time Status CHEST 1 VIEW (PORTABLE) Stat Exams 04/14/24 18:41 Taken Multi-Disciplinary Progress Notes: Multi-Disciplinary Progress Notes 04/15/24 01:04 Respiratory Note by Chelsy Mohamud Patient has orders for CPAP per home settings. This RT set up CPAP in patients room. However, not placing patient on device at this time. Patient is recieving lasix and is making frequent trips to the restroom. Informed patient that anytime he is ready we can put it on him. Initialized on 04/15/24 01:04 - END OF NOTE <PAT SILVERMAN - Last Filed: 04/15/24 11:42> Vital Signs: Vital Signs - 24 hr Temp Pulse Resp BP BP Pulse Ox 04/15/24 12:00 98.1 F 78 18 135/61 96 04/15/24 08:00 98.4 F 86 16 144/64 95 04/15/24 07:21 102 H 18 95 04/15/24 03:54 97.3 F 85 20 150/66 93 L 04/15/24 01:00 86 16 96 04/14/24 23:52 94 L 04/14/24 22:29 97.3 F 93 H 26 H 141/70 94 L 04/14/24 22:01 95 H 27 H 147/81 04/14/24 21:40 83 23 100 04/14/24 21:36 102 H 18 94 L 04/14/24 21:00 157/66 04/14/24 20:30 90 18 134/55 100 04/14/24 20:00 81 16 138/54 100 04/14/24 19:30 85 18 145/79 100 04/14/24 19:01 79 24 149/62 100 04/14/24 18:51 100 04/14/24 18:42 100 04/14/24 18:31 80 21 150/60 99 04/14/24 18:23 97.8 F 81 25 H 150/60 100 Pain Assessment - Last Documented Pain Intensity 0 Intake and Output: Intake & Output 04/13/24 04/14/24 04/15/24 04/16/24 11:59 11:59 11:59 11:59 Intake Total 240 120 Output Total 2300 700 Balance -2059 -580 Weight 82.4 kg Lab Results: Lab Results-Last 24 Hours 04/14/24 04/14/24 04/14/24 Range/Units 18:40 18:40 18:40 WBC 5.9 (4.23-9.07) x10^3/uL RBC 3.42 L (4.63-6.08) x10^6/uL Hgb 9.6 L (13.7-17.5) g/dL Hct 31.6 L (40.1-51.0) % MCV 92.4 H (79.0-92.2) fL MCH 28.1 (25.7-32.2) pg MCHC 30.4 L (32.3-36.5) g/dL RDW 14.6 H (11.6-14.4) % Plt Count 214 (163-337) x10^3/uL MPV 8.8 L (9.4-12.4) fL Gran % 67.1 (34.0-67.9) % Immature Gran % (Auto) 0.5 H (0.001-0.429) % Nucleat RBC Rel Count 0.0 (0.00-0.2) % Eos # (Auto) 0.10 (0.04-0.54) x10^3/uL Immature Gran # (Auto) 0.03 (0.001-0.031) x10^3u/L Absolute Lymphs (auto) 1.16 L (1.32-3.57) x10^3/uL Absolute Monos (auto) 0.62 (0.30-0.82) x10^3/uL Absolute Nucleated RBC 0.00 (0.00-0.012) x10^3u/L Lymphocytes % 19.7 L (21.8-53.1) % Monocytes % 10.5 (5.3-12.2) % Eosinophils % 1.7 (0.8-7.0) % Basophils % 0.5 (0.2-1.2) % Absolute Granulocytes 3.96 (1.78-5.38) x10^3/uL Basophils # 0.03 (0.01-0.08) x10^3/uL PT 12.3 (9.4-12.5) SECONDS INR 1.14 (0.8-3.0) D-Dimer 0.36 (0.0-0.50) mg/L Sodium 139 (135-145) mmol/L Potassium 3.8 (3.5-5.1) mmol/L Chloride 91 L (98-107) mmol/L Carbon Dioxide 36 H (22-30) mmol/L Anion Gap 15.8 H (5-15) MEQ/L BUN 35 H (9-20) mg/dL Creatinine 1.03 (0.66-1.25) mg/dL Estimated GFR 71.6 ML/MIN Glucose 143 H (74-106) mg/dL POC Glucometer (74 to 106) mg/dL Lactic Acid (0.4-2.0) Calcium 10.6 H (8.4-10.2) mg/dL Magnesium 1.5 L (1.6-2.3) mg/dL Iron (49-181) ug/dL TIBC (261-497) ug/dL Iron Saturation (20-39) % Total Bilirubin 0.40 (0.2-1.3) mg/dL AST 25 (17-59) U/L ALT 18 (0-50) U/L Alkaline Phosphatase 57 (38-126) U/L NT-Pro-B Natriuret Pep (<300) pg/mL Serum Total Protein 6.6 (6.3-8.2) g/dL Albumin 4.0 (3.5-5.0) g/dL Influenza Type A Ag (NEGATIVE) Influenza Type B Ag (NEGATIVE) RSV (PCR) (NEGATIVE) SARS-CoV-2 (PCR) (NEGATIVE) 04/14/24 04/14/24 04/14/24 Range/Units 18:40 18:50 19:10 WBC (4.23-9.07) x10^3/uL RBC (4.63-6.08) x10^6/uL Hgb (13.7-17.5) g/dL Hct (40.1-51.0) % MCV (79.0-92.2) fL MCH (25.7-32.2) pg MCHC (32.3-36.5) g/dL RDW (11.6-14.4) % Plt Count (163-337) x10^3/uL MPV (9.4-12.4) fL Gran % (34.0-67.9) % Immature Gran % (Auto) (0.001-0.429) % Nucleat RBC Rel Count (0.00-0.2) % Eos # (Auto) (0.04-0.54) x10^3/uL Immature Gran # (Auto) (0.001-0.031) x10^3u/L Absolute Lymphs (auto) (1.32-3.57) x10^3/uL Absolute Monos (auto) (0.30-0.82) x10^3/uL Absolute Nucleated RBC (0.00-0.012) x10^3u/L Lymphocytes % (21.8-53.1) % Monocytes % (5.3-12.2) % Eosinophils % (0.8-7.0) % Basophils % (0.2-1.2) % Absolute Granulocytes (1.78-5.38) x10^3/uL Basophils # (0.01-0.08) x10^3/uL PT (9.4-12.5) SECONDS INR (0.8-3.0) D-Dimer (0.0-0.50) mg/L Sodium (135-145) mmol/L Potassium (3.5-5.1) mmol/L Chloride (98-107) mmol/L Carbon Dioxide (22-30) mmol/L Anion Gap (5-15) MEQ/L BUN (9-20) mg/dL Creatinine (0.66-1.25) mg/dL Estimated GFR ML/MIN Glucose (74-106) mg/dL POC Glucometer (74 to 106) mg/dL Lactic Acid 1.3 (0.4-2.0) Calcium (8.4-10.2) mg/dL Magnesium (1.6-2.3) mg/dL Iron (49-181) ug/dL TIBC (261-497) ug/dL Iron Saturation (20-39) % Total Bilirubin (0.2-1.3) mg/dL AST (17-59) U/L ALT (0-50) U/L Alkaline Phosphatase (38-126) U/L NT-Pro-B Natriuret Pep 1810 (<300) pg/mL Serum Total Protein (6.3-8.2) g/dL Albumin (3.5-5.0) g/dL Influenza Type A Ag NEGATIVE (NEGATIVE) Influenza Type B Ag NEGATIVE (NEGATIVE) RSV (PCR) NEGATIVE (NEGATIVE) SARS-CoV-2 (PCR) NEGATIVE (NEGATIVE) 04/15/24 04/15/24 04/15/24 Range/Units 04:40 04:40 07:52 WBC 7.5 (4.23-9.07) x10^3/uL RBC 3.31 L (4.63-6.08) x10^6/uL Hgb 9.4 L (13.7-17.5) g/dL Hct 30.1 L (40.1-51.0) % MCV 90.9 (79.0-92.2) fL MCH 28.4 (25.7-32.2) pg MCHC 31.2 L (32.3-36.5) g/dL RDW 14.9 H (11.6-14.4) % Plt Count 217 (163-337) x10^3/uL MPV 9.1 L (9.4-12.4) fL Gran % (34.0-67.9) % Immature Gran % (Auto) (0.001-0.429) % Nucleat RBC Rel Count (0.00-0.2) % Eos # (Auto) (0.04-0.54) x10^3/uL Immature Gran # (Auto) (0.001-0.031) x10^3u/L Absolute Lymphs (auto) (1.32-3.57) x10^3/uL Absolute Monos (auto) (0.30-0.82) x10^3/uL Absolute Nucleated RBC (0.00-0.012) x10^3u/L Lymphocytes % (21.8-53.1) % Monocytes % (5.3-12.2) % Eosinophils % (0.8-7.0) % Basophils % (0.2-1.2) % Absolute Granulocytes (1.78-5.38) x10^3/uL Basophils # (0.01-0.08) x10^3/uL PT (9.4-12.5) SECONDS INR (0.8-3.0) D-Dimer (0.0-0.50) mg/L Sodium 138 (135-145) mmol/L Potassium 3.4 L (3.5-5.1) mmol/L Chloride 90 L (98-107) mmol/L Carbon Dioxide 38 H (22-30) mmol/L Anion Gap 13.4 (5-15) MEQ/L BUN 32 H (9-20) mg/dL Creatinine 0.93 (0.66-1.25) mg/dL Estimated GFR 81.0 ML/MIN Glucose 143 H (74-106) mg/dL POC Glucometer 119 H (74 to 106) mg/dL Lactic Acid (0.4-2.0) Calcium 10.5 H (8.4-10.2) mg/dL Magnesium 2.8 H (1.6-2.3) mg/dL Iron (49-181) ug/dL TIBC (261-497) ug/dL Iron Saturation (20-39) % Total Bilirubin (0.2-1.3) mg/dL AST (17-59) U/L ALT (0-50) U/L Alkaline Phosphatase (38-126) U/L NT-Pro-B Natriuret Pep (<300) pg/mL Serum Total Protein (6.3-8.2) g/dL Albumin (3.5-5.0) g/dL Influenza Type A Ag (NEGATIVE) Influenza Type B Ag (NEGATIVE) RSV (PCR) (NEGATIVE) SARS-CoV-2 (PCR) (NEGATIVE) 04/15/24 04/15/24 04/15/24 Range/Units 11:39 12:20 14:38 WBC (4.23-9.07) x10^3/uL RBC (4.63-6.08) x10^6/uL Hgb (13.7-17.5) g/dL Hct (40.1-51.0) % MCV (79.0-92.2) fL MCH (25.7-32.2) pg MCHC (32.3-36.5) g/dL RDW (11.6-14.4) % Plt Count (163-337) x10^3/uL MPV (9.4-12.4) fL Gran % (34.0-67.9) % Immature Gran % (Auto) (0.001-0.429) % Nucleat RBC Rel Count (0.00-0.2) % Eos # (Auto) (0.04-0.54) x10^3/uL Immature Gran # (Auto) (0.001-0.031) x10^3u/L Absolute Lymphs (auto) (1.32-3.57) x10^3/uL Absolute Monos (auto) (0.30-0.82) x10^3/uL Absolute Nucleated RBC (0.00-0.012) x10^3u/L Lymphocytes % (21.8-53.1) % Monocytes % (5.3-12.2) % Eosinophils % (0.8-7.0) % Basophils % (0.2-1.2) % Absolute Granulocytes (1.78-5.38) x10^3/uL Basophils # (0.01-0.08) x10^3/uL PT (9.4-12.5) SECONDS INR (0.8-3.0) D-Dimer (0.0-0.50) mg/L Sodium (135-145) mmol/L Potassium 3.9 (3.5-5.1) mmol/L Chloride (98-107) mmol/L Carbon Dioxide (22-30) mmol/L Anion Gap (5-15) MEQ/L BUN (9-20) mg/dL Creatinine (0.66-1.25) mg/dL Estimated GFR ML/MIN Glucose (74-106) mg/dL POC Glucometer 84 (74 to 106) mg/dL Lactic Acid (0.4-2.0) Calcium (8.4-10.2) mg/dL Magnesium (1.6-2.3) mg/dL Iron 41 L (49-181) ug/dL TIBC 329 (261-497) ug/dL Iron Saturation 13 L (20-39) % Total Bilirubin (0.2-1.3) mg/dL AST (17-59) U/L ALT (0-50) U/L Alkaline Phosphatase (38-126) U/L NT-Pro-B Natriuret Pep (<300) pg/mL Serum Total Protein (6.3-8.2) g/dL Albumin (3.5-5.0) g/dL Influenza Type A Ag (NEGATIVE) Influenza Type B Ag (NEGATIVE) RSV (PCR) (NEGATIVE) SARS-CoV-2 (PCR) (NEGATIVE) Radiology Exams: Radiology Procedures Category Date Time Status CHEST 1 VIEW (PORTABLE) Stat Exams 04/14/24 18:41 Completed Multi-Disciplinary Progress Notes: Multi-Disciplinary Progress Notes 04/15/24 01:04 Respiratory Note by Chelsy Mohamud Patient has orders for CPAP per home settings. This RT set up CPAP in patients room. However, not placing patient on device at this time. Patient is recieving lasix and is making frequent trips to the restroom. Informed patient that anytime he is ready we can put it on him. Initialized on 04/15/24 01:04 - END OF NOTE <GAEL VAUGHN - Last Filed: 04/15/24 14:57> Assessment/Plan (1) CHF exacerbation Current Visit: Yes Status: Acute Assessment & Plan: -Echo reviewed from February 2024 -BNP 1810 -Lasix 80mg BID started -tele -optimize electrolytes/renal -elevated HOB/daily weights/strict I&O -Supplemental oxygen- at 2L which is baseline with spo2 goal >90% -cxr demonstrates borderline cardiomegaly and mild bibasilar infiltrates/atelectasis/effusions Code(s): I50.9 - HEART FAILURE, UNSPECIFIED (2) Hypomagnesemia Current Visit: Yes Status: Acute Assessment & Plan: -mag at 1.5 on arrival - corrected with 2g Code(s): E83.42 - HYPOMAGNESEMIA (3) KAILEE (obstructive sleep apnea) Current Visit: Yes Status: Acute Assessment & Plan: -CPAP Code(s): G47.33 - OBSTRUCTIVE SLEEP APNEA (ADULT) (PEDIATRIC) (4) Normocytic anemia Current Visit: Yes Status: Acute Assessment & Plan: -hgb near baseline, will add iron studies Code(s): D64.9 - ANEMIA, UNSPECIFIED (5) COPD (chronic obstructive pulmonary disease) Current Visit: Yes Status: Acute Assessment & Plan: -2L baseline - supplemental prn -RT eval -prn albuterol (6) HTN (hypertension) Current Visit: Yes Status: Acute Assessment & Plan: -continue home meds amlodipine/metoprolol Code(s): I10 - ESSENTIAL (PRIMARY) HYPERTENSION (7) Hypokalemia Current Visit: Yes Status: Acute Assessment & Plan: -labs reviewed with K+ at 3.4, will replenish per protocol Code(s): E87.6 - HYPOKALEMIA (8) Type 2 diabetes mellitus Current Visit: No Status: Chronic Assessment & Plan: -ADA diet -A1c -Low dose SSI -adjustments as needed CODE STATUS: Full code Prophylaxis: No pharmacologic prophylaxis (Kuldeep over score is only 2. Of note, EMR derived rescore is inaccurate as it believes patient is on oral contraceptives.) Diet: Low-sodium, diabeti <PAT SILVERMAN - Last Filed: 04/15/24 11:42> FROILAN Encounter - FROILAN Encounter Attestation FROILAN Encounter Attestation: "IhKhurram ANDREW,[place] andhavediscussed pertinent aspects of their care with Pat Rodriguez agree with the history, physical exam (any modifications based on my personal exam will be noted below), assessment, and plan as outlined in original note. Please see immediately below for my summary of findings and additional assessment and plan along with any meaningful corrections/explanations to the Subjective/Objective portions of the FROILAN note will be noted." My portion of the encounter took place via telemedicine. -Patient admitted for CHF exacerbation. Reports improvement in symptoms since initiating IV diuresis and is at baseline oxygen requirements. Would continue diuresis for today, likely discharge home tomorrow. <GAEL VAUGHN - Last Filed: 04/15/24 14:57>
[2024-04-15] MEDS: Klor Con PO SCH ×2 (08:18→10:55)
--- NOTE | 2024-04-15 08:40 | XRAY ---
Indication: Short of breath. Comparison: February 02, 2024 Portable chest again demonstrates borderline cardiomegaly and mild bibasilar infiltrates/atelectasis/effusions. Bony thorax intact again with osteopenia, degenerative changes, and dextroscoliosis.
[2024-04-15] MEDS ORDERED: Klor Con PO SCH (10:00)
[2024-04-15] MEDS ORDERED: NON-FORMULARY ITEM (Potassium Chloride [Klor-Con 8] 8 MEQ Tablet.Er) PO SCH (10:00)
[2024-04-15] MEDS ORDERED: NON-FORMULARY ITEM (Amlodipine Besylate [Norvasc] 10 MG Tablet) PO SCH (10:00)
[2024-04-15] MEDS: Proscar 5 MG PO SCH (10:55)
[2024-04-15] MEDS: Toprol Xl 50 MG PO SCH (10:55)
[2024-04-15] MEDS: Lasix 40 MG/4 ML IV SCH (10:56)
[2024-04-15 13:11] LABS: Iron 41 ug/dL (49-181); Iron Saturation 13 % (20-39); TIBC 329 ug/dL (261-497)
[2024-04-15 15:23] LABS: Folate (Folic Acid) 13.5 ng/mL (2.76 - >20)
[2024-04-15] MEDS: Venofer 100 MG/5 ML*** 200 MG in Sodium Chloride 0.9% 100 ML IV SCH (15:46)
[2024-04-15] MEDS: NORVASC 5 MG PO SCH (18:03)
[2024-04-15] MEDS: MELATONIN PO PRN (23:56)
[2024-04-16 05:10] LABS: Absolute Neutrophil Ct (ANC) 4.69 x10^3/uL (1.78-5.38); BASOPHIL % 0.8 % (0.2-1.2); Basophil (Absolute #) 0.05 x10^3/uL (0.01-0.08); Eosinophil % 1.2 % (0.8-7.0); Eosinophil (Absolute #) 0.08 x10^3/uL (0.04-0.54); Hematocrit 31.3 % (40.1-51.0); Hemoglobin 9.7 g/dL (13.7-17.5); IMMATURE GRAN # 0.03 x10^3u/L (0.001-0.031); IMMATURE GRAN % 0.5 % (0.001-0.429); Lymphocytes % 12.3 % (21.8-53.1); Mean Cell Volume 90.2 fL (79.0-92.2); Mean Platelet Volume 9.3 fL (9.4-12.4); Monocyte (Absolute #) 0.88 x10^3/uL (0.30-0.82); Monocytes % 13.5 % (5.3-12.2); Neutrophil % 71.7 % (34.0-67.9); Platelet Count 226 x10^3/uL (163-337); Red Blood Count 3.47 x10^6/uL (4.63-6.08); Red Cell Distribution Width 15.1 % (11.6-14.4); White Blood Count 6.5 x10^3/uL (4.23-9.07)
--- NOTE | 2024-04-16 05:36 | PCM.NOTE ---
Date and Time: 04/16/24 0535 Subjective Assessment: HPI: 83-year-old man with history of diastolic heart failure, COPD on 2 L oxygen chronically, KAILEE on nocturnal CPAP, and type 2 diabetes, who presents with 2 days of dyspnea. Of note, patient was admitted 6 weeks ago for COPD exacerbation and pneumonia. Patient notes that after he was discharged, he was doing quite well. However, for the past 2 days, he has had progressive worsening shortness of breath, having to increase his chronic 2 L oxygen to 3 L, associated with orthopnea, requiring him to sleep in a recliner, PND, and early satiety. He has had some left leg swelling for some time for which he has been working with podiatry for cellulitis versus stasis dermatitis, but he is now noticing some swelling in the right leg as well. He denies any change in his chronic productive cough, and denies any wheezing, fevers, nasal congestion, sore throat, chest pain, or sick contacts. He denies any change in his medications or diet recently, and states he has been compliant with his Lasix. 04/15/24: Patient up in chair. Endorses improvement with dyspnea. At his baseline of 2L. On exam he is noted with BLE edema L>R 2/3 + pitting. Lung sound diminished on auscultation. Balance output at -2059. Lab with hypokalemia this morning -being replenished. Denies fever, cp, abdominal pain, TREVIÑO, dizziness, N/V/D. 04/16/24: Met and examined patient. Dyspnea has improved. Patient states he still has to sleep sitting up due to increased sob. BLE edema with minimal improvement. Lung sounds diminished. At baseline oxygen of 2L. Plan to continue diuresis. - Review of Systems Constitutional: No Symptoms Eyes: No Symptoms Ears, Nose, & Throat: No Symptoms Respiratory: Short Of Breath Cardiac: Edema (BLE edema 2+ pitting /pedal edema) Abdominal/Gastrointestinal: No Symptoms Genitourinary Symptoms: No Symptoms Musculoskeletal: No Symptoms Skin: No Symptoms Neurological: No Symptoms Psychological: No Symptoms Endocrine: No Symptoms Hematologic/Lymphatic: No Symptoms Immunological/Allergic: No Symptoms Objective Exam General Appearance: no apparent distress Neurologic Exam: alert, oriented x 3, cooperative Skin Exam: normal color Eye Exam: PERRL Ears, Nose, Throat Exam: normal ENT inspection Neck Exam: normal inspection, full range of motion Respiratory Exam: diminished breath sounds Cardiovascular Exam: regular rate/rhythm, normal heart sounds Gastrointestinal/Abdomen Exam: soft, normal bowel sounds Extremity Exam: pedal edema, swelling (BLE edema +2 pitting) Back Exam: normal inspection Objective Data Vital Signs: Vital Signs - 24 hr Temp Pulse Resp BP Pulse Ox 04/16/24 04:00 97.4 F 87 18 137/67 94 L 04/16/24 00:00 97.8 F 99 H 18 118/68 93 L 04/15/24 20:00 98.4 F 108 H 18 128/58 92 L 04/15/24 18:35 112 H 20 94 L 04/15/24 16:00 98.3 F 88 20 123/76 92 L 04/15/24 12:00 98.1 F 78 18 135/61 96 04/15/24 08:00 98.4 F 86 16 144/64 95 04/15/24 07:21 102 H 18 95 Pain Assessment - Last Documented Pain Intensity 0 Intake and Output: Intake & Output 04/13/24 04/14/24 04/15/24 04/16/24 11:59 11:59 11:59 11:59 Intake Total 240 280 Output Total 2300 1600 Balance -2060 -1320 Weight 82.4 kg Lab Results: Lab Results-Last 24 Hours 04/15/24 04/15/24 04/15/24 Range/Units 07:52 11:39 12:20 WBC (4.23-9.07) x10^3/uL RBC (4.63-6.08) x10^6/uL Hgb (13.7-17.5) g/dL Hct (40.1-51.0) % MCV (79.0-92.2) fL MCH (25.7-32.2) pg MCHC (32.3-36.5) g/dL RDW (11.6-14.4) % Plt Count (163-337) x10^3/uL MPV (9.4-12.4) fL Gran % (34.0-67.9) % Immature Gran % (Auto) (0.001-0.429) % Nucleat RBC Rel Count (0.00-0.2) % Eos # (Auto) (0.04-0.54) x10^3/uL Immature Gran # (Auto) (0.001-0.031) x10^3u/L Absolute Lymphs (auto) (1.32-3.57) x10^3/uL Absolute Monos (auto) (0.30-0.82) x10^3/uL Absolute Nucleated RBC (0.00-0.012) x10^3u/L Lymphocytes % (21.8-53.1) % Monocytes % (5.3-12.2) % Eosinophils % (0.8-7.0) % Basophils % (0.2-1.2) % Absolute Granulocytes (1.78-5.38) x10^3/uL Basophils # (0.01-0.08) x10^3/uL Potassium (3.5-5.1) mmol/L POC Glucometer 119 H 84 (74 to 106) mg/dL Iron (49-181) ug/dL TIBC (261-497) ug/dL Iron Saturation (20-39) % Ferritin 183 (17.9-464) ng/mL Vitamin B12 366 (239-931) pg/mL Folic Acid 13.5 (2.76 - >20) ng/mL 04/15/24 04/15/24 04/15/24 Range/Units 12:20 14:38 16:24 WBC (4.23-9.07) x10^3/uL RBC (4.63-6.08) x10^6/uL Hgb (13.7-17.5) g/dL Hct (40.1-51.0) % MCV (79.0-92.2) fL MCH (25.7-32.2) pg MCHC (32.3-36.5) g/dL RDW (11.6-14.4) % Plt Count (163-337) x10^3/uL MPV (9.4-12.4) fL Gran % (34.0-67.9) % Immature Gran % (Auto) (0.001-0.429) % Nucleat RBC Rel Count (0.00-0.2) % Eos # (Auto) (0.04-0.54) x10^3/uL Immature Gran # (Auto) (0.001-0.031) x10^3u/L Absolute Lymphs (auto) (1.32-3.57) x10^3/uL Absolute Monos (auto) (0.30-0.82) x10^3/uL Absolute Nucleated RBC (0.00-0.012) x10^3u/L Lymphocytes % (21.8-53.1) % Monocytes % (5.3-12.2) % Eosinophils % (0.8-7.0) % Basophils % (0.2-1.2) % Absolute Granulocytes (1.78-5.38) x10^3/uL Basophils # (0.01-0.08) x10^3/uL Potassium 3.9 (3.5-5.1) mmol/L POC Glucometer 111 H (74 to 106) mg/dL Iron 41 L (49-181) ug/dL TIBC 329 (261-497) ug/dL Iron Saturation 13 L (20-39) % Ferritin (17.9-464) ng/mL Vitamin B12 (239-931) pg/mL Folic Acid (2.76 - >20) ng/mL 04/15/24 04/16/24 Range/Units 21:07 04:30 WBC 6.5 (4.23-9.07) x10^3/uL RBC 3.47 L (4.63-6.08) x10^6/uL Hgb 9.7 L (13.7-17.5) g/dL Hct 31.3 L (40.1-51.0) % MCV 90.2 (79.0-92.2) fL MCH 28.0 (25.7-32.2) pg MCHC 31.0 L (32.3-36.5) g/dL RDW 15.1 H (11.6-14.4) % Plt Count 226 (163-337) x10^3/uL MPV 9.3 L (9.4-12.4) fL Gran % 71.7 H (34.0-67.9) % Immature Gran % (Auto) 0.5 H (0.001-0.429) % Nucleat RBC Rel Count 0.0 (0.00-0.2) % Eos # (Auto) 0.08 (0.04-0.54) x10^3/uL Immature Gran # (Auto) 0.03 (0.001-0.031) x10^3u/L Absolute Lymphs (auto) 0.80 L (1.32-3.57) x10^3/uL Absolute Monos (auto) 0.88 H (0.30-0.82) x10^3/uL Absolute Nucleated RBC 0.00 (0.00-0.012) x10^3u/L Lymphocytes % 12.3 L (21.8-53.1) % Monocytes % 13.5 H (5.3-12.2) % Eosinophils % 1.2 (0.8-7.0) % Basophils % 0.8 (0.2-1.2) % Absolute Granulocytes 4.69 (1.78-5.38) x10^3/uL Basophils # 0.05 (0.01-0.08) x10^3/uL Potassium (3.5-5.1) mmol/L POC Glucometer 155 H (74 to 106) mg/dL Iron (49-181) ug/dL TIBC (261-497) ug/dL Iron Saturation (20-39) % Ferritin (17.9-464) ng/mL Vitamin B12 (239-931) pg/mL Folic Acid (2.76 - >20) ng/mL Radiology Exams: Radiology Procedures Category Date Time Status CHEST 1 VIEW (PORTABLE) Stat Exams 04/14/24 18:41 Completed Assessment/Plan (1) CHF exacerbation Current Visit: Yes Status: Acute Assessment & Plan: -Echo reviewed from February 2024 -BNP 1810 -Lasix 80mg BID started -tele -optimize electrolytes/renal -elevated HOB/daily weights/strict I&O -Supplemental oxygen- at 2L which is baseline with spo2 goal >90% -cxr demonstrates borderline cardiomegaly and mild bibasilar infiltrates/atelectasis/effusions 04/16: -Continue lasix 80mg BID - dyspnea somewhat improved, minimal BLE edema improvement Code(s): I50.9 - HEART FAILURE, UNSPECIFIED (2) Hypomagnesemia Current Visit: Yes Status: Acute Assessment & Plan: -mag at 1.5 on arrival - corrected with 2g 04/16: -Resolved Code(s): E83.42 - HYPOMAGNESEMIA (3) KAILEE (obstructive sleep apnea) Current Visit: Yes Status: Acute Assessment & Plan: -CPAP - pt to bring from home Code(s): G47.33 - OBSTRUCTIVE SLEEP APNEA (ADULT) (PEDIATRIC) (4) Normocytic anemia Current Visit: Yes Status: Acute Assessment & Plan: -hgb near baseline, will add iron studies -received one dose of venofer, will add ferrous sulfate and continue txt as OP Code(s): D64.9 - ANEMIA, UNSPECIFIED (5) COPD (chronic obstructive pulmonary disease) Current Visit: Yes Status: Acute Assessment & Plan: -2L baseline - supplemental prn -RT eval -prn albuterol (6) HTN (hypertension) Current Visit: Yes Status: Acute Assessment & Plan: -continue home meds amlodipine/metoprolol Code(s): I10 - ESSENTIAL (PRIMARY) HYPERTENSION (7) Hypokalemia Current Visit: Yes Status: Acute Assessment & Plan: -labs reviewed with K+ at 3.4, will replenish per protocol 04/16: -Resolved Code(s): E87.6 - HYPOKALEMIA (8) Type 2 diabetes mellitus Current Visit: No Status: Chronic Assessment & Plan: -ADA diet -A1c -Low dose SSI -adjustments as needed CODE STATUS: Full code Prophylaxis: No pharmacologic prophylaxis (Kuldeep over score is only 2. Of note, EMR derived rescore is inaccurate as it believes patient is on oral contraceptives.) Diet: Low-sodium, diabeti Code(s): I50.9 - HEART FAILURE, UNSPECIFIED (2) Hypomagnesemia Current Visit: Yes Status: Acute Code(s): E83.42 - HYPOMAGNESEMIA (3) KAILEE (obstructive sleep apnea) Current Visit: Yes Status: Acute Code(s): G47.33 - OBSTRUCTIVE SLEEP APNEA (ADULT) (PEDIATRIC) (4) Normocytic anemia Current Visit: Yes Status: Acute Code(s): D64.9 - ANEMIA, UNSPECIFIED (5) COPD (chronic obstructive pulmonary disease) Current Visit: Yes Status: Acute (6) HTN (hypertension) Current Visit: Yes Status: Acute Code(s): I10 - ESSENTIAL (PRIMARY) HYPERTENSION (7) Hypokalemia Current Visit: Yes Status: Acute Code(s): E87.6 - HYPOKALEMIA (8) Type 2 diabetes mellitus Current Visit: No Status: Chronic
[2024-04-16 05:40] LABS: ALBUMIN 3.9 g/dL (3.5-5.0); BILIRUBIN,TOTAL 0.4 mg/dL (0.2-1.3); Calcium 10.2 mg/dL (8.4-10.2); Creatinine 1 0.98 mg/dL (0.66-1.25); Potassium 3.1 mmol/L (3.5-5.1); Total Protein 6.5 g/dL (6.3-8.2)
[2024-04-16] MEDS: TYLENOL 325 MG PO PRN (05:40)
[2024-04-16] MEDS: Klor Con PO ONE (08:32)
[2024-04-16] MEDS: Klor Con PO SCH (10:52)
[2024-04-17 04:48] LABS: Absolute Neutrophil Ct (ANC) 3.83 x10^3/uL (1.78-5.38); BASOPHIL % 0.7 % (0.2-1.2); Basophil (Absolute #) 0.04 x10^3/uL (0.01-0.08); Eosinophil % 1.7 % (0.8-7.0); Hematocrit 31.6 % (40.1-51.0); Hemoglobin 9.9 g/dL (13.7-17.5); IMMATURE GRAN # 0.04 x10^3u/L (0.001-0.031); IMMATURE GRAN % 0.7 % (0.001-0.429); Lymphocyte (Absolute #) 1.03 x10^3/uL (1.32-3.57); Lymphocytes % 17.2 % (21.8-53.1); Mean Corpuscular Hemoglobin 28.2 pg (25.7-32.2); Mean Corpuscular Hgb Concent. 31.3 g/dL (32.3-36.5); Mean Platelet Volume 9.4 fL (9.4-12.4); Monocyte (Absolute #) 0.94 x10^3/uL (0.30-0.82); Monocytes % 15.7 % (5.3-12.2); Platelet Count 234 x10^3/uL (163-337); Red Blood Count 3.51 x10^6/uL (4.63-6.08); Red Cell Distribution Width 15.7 % (11.6-14.4)
--- NOTE | 2024-04-17 05:13 | PCM.NOTE ---
Date and Time: 04/17/24512 Subjective Assessment: HPI: 83-year-old man with history of diastolic heart failure, COPD on 2 L oxygen chronically, KAILEE on nocturnal CPAP, and type 2 diabetes, who presents with 2 days of dyspnea. Of note, patient was admitted 6 weeks ago for COPD exacerbation and pneumonia. Patient notes that after he was discharged, he was doing quite well. However, for the past 2 days, he has had progressive worsening shortness of breath, having to increase his chronic 2 L oxygen to 3 L, associated with orthopnea, requiring him to sleep in a recliner, PND, and early satiety. He has had some left leg swelling for some time for which he has been working with podiatry for cellulitis versus stasis dermatitis, but he is now noticing some swelling in the right leg as well. He denies any change in his chronic productive cough, and denies any wheezing, fevers, nasal congestion, sore throat, chest pain, or sick contacts. He denies any change in his medications or diet recently, and states he has been compliant with his Lasix. 04/15/24: Patient up in chair. Endorses improvement with dyspnea. At his baseline of 2L. On exam he is noted with BLE edema L>R 2/3 + pitting. Lung sound diminished on auscultation. Balance output at -2059. Lab with hypokalemia this morning -being replenished. Denies fever, cp, abdominal pain, TREVIÑO, dizziness, N/V/D. 04/16/24: Met and examined patient. Dyspnea has improved. Patient states he still has to sleep sitting up due to increased sob. BLE edema with minimal improvement. Lung sounds diminished. At baseline oxygen of 2L. Plan to continue diuresis. Objective Data Vital Signs: Vital Signs - 24 hr Temp Pulse Resp BP Pulse Ox 04/17/24 03:57 14 04/16/24 23:56 97.9 F 102 H 18 119/56 95 04/16/24 20:42 70 16 95 04/16/24 20:00 97.9 F 70 16 165/65 95 04/16/24 16:00 97.9 F 70 18 138/70 92 L 04/16/24 12:00 97.6 F 95 H 16 134/63 96 04/16/24 08:00 98.1 F 85 16 121/61 93 L 04/16/24 06:46 85 16 93 L Pain Assessment - Last Documented Pain Intensity 0 Pain Scale Used [facility] Intake and Output: Intake & Output 04/14/24 04/15/24 04/16/24 04/17/24 11:59 11:59 11:59 11:59 Intake Total 240 860 840 Output Total 2300 1600 750 Balance -2060 -740 90 Weight 82.4 kg 80.4 kg Lab Results: Lab Results-Last 24 Hours 04/16/24 04/16/24 04/16/24 Range/Units 04:30 04:30 04:30 WBC 6.5 (4.23-9.07) x10^3/uL RBC 3.47 L (4.63-6.08) x10^6/uL Hgb 9.7 L (13.7-17.5) g/dL Hct 31.3 L (40.1-51.0) % MCV 90.2 (79.0-92.2) fL MCH 28.0 (25.7-32.2) pg MCHC 31.0 L (32.3-36.5) g/dL RDW 15.1 H (11.6-14.4) % Plt Count 226 (163-337) x10^3/uL MPV 9.3 L (9.4-12.4) fL Gran % 71.7 H (34.0-67.9) % Immature Gran % (Auto) 0.5 H (0.001-0.429) % Nucleat RBC Rel Count 0.0 (0.00-0.2) % Eos # (Auto) 0.08 (0.04-0.54) x10^3/uL Immature Gran # (Auto) 0.03 (0.001-0.031) x10^3u/L Absolute Lymphs (auto) 0.80 L (1.32-3.57) x10^3/uL Absolute Monos (auto) 0.88 H (0.30-0.82) x10^3/uL Absolute Nucleated RBC 0.00 (0.00-0.012) x10^3u/L Lymphocytes % 12.3 L (21.8-53.1) % Monocytes % 13.5 H (5.3-12.2) % Eosinophils % 1.2 (0.8-7.0) % Basophils % 0.8 (0.2-1.2) % Absolute Granulocytes 4.69 (1.78-5.38) x10^3/uL Basophils # 0.05 (0.01-0.08) x10^3/uL Sodium 139 (135-145) mmol/L Potassium 3.1 L D (3.5-5.1) mmol/L Chloride 91 L (98-107) mmol/L Carbon Dioxide 39 H (22-30) mmol/L Anion Gap 12.0 (5-15) MEQ/L BUN 42 H (9-20) mg/dL Creatinine 0.98 (0.66-1.25) mg/dL Estimated GFR 76.0 ML/MIN Glucose 139 H (74-106) mg/dL POC Glucometer (74 to 106) mg/dL Calcium 10.2 (8.4-10.2) mg/dL Magnesium 1.8 (1.6-2.3) mg/dL Total Bilirubin 0.40 (0.2-1.3) mg/dL AST 25 (17-59) U/L ALT 18 (0-50) U/L Alkaline Phosphatase 54 (38-126) U/L Serum Total Protein 6.5 (6.3-8.2) g/dL Albumin 3.9 (3.5-5.0) g/dL 04/16/24 04/16/24 04/16/24 Range/Units 07:36 11:48 12:08 WBC (4.23-9.07) x10^3/uL RBC (4.63-6.08) x10^6/uL Hgb (13.7-17.5) g/dL Hct (40.1-51.0) % MCV (79.0-92.2) fL MCH (25.7-32.2) pg MCHC (32.3-36.5) g/dL RDW (11.6-14.4) % Plt Count (163-337) x10^3/uL MPV (9.4-12.4) fL Gran % (34.0-67.9) % Immature Gran % (Auto) (0.001-0.429) % Nucleat RBC Rel Count (0.00-0.2) % Eos # (Auto) (0.04-0.54) x10^3/uL Immature Gran # (Auto) (0.001-0.031) x10^3u/L Absolute Lymphs (auto) (1.32-3.57) x10^3/uL Absolute Monos (auto) (0.30-0.82) x10^3/uL Absolute Nucleated RBC (0.00-0.012) x10^3u/L Lymphocytes % (21.8-53.1) % Monocytes % (5.3-12.2) % Eosinophils % (0.8-7.0) % Basophils % (0.2-1.2) % Absolute Granulocytes (1.78-5.38) x10^3/uL Basophils # (0.01-0.08) x10^3/uL Sodium (135-145) mmol/L Potassium 3.7 (3.5-5.1) mmol/L Chloride (98-107) mmol/L Carbon Dioxide (22-30) mmol/L Anion Gap (5-15) MEQ/L BUN (9-20) mg/dL Creatinine (0.66-1.25) mg/dL Estimated GFR ML/MIN Glucose (74-106) mg/dL POC Glucometer 126 H 120 H (74 to 106) mg/dL Calcium (8.4-10.2) mg/dL Magnesium (1.6-2.3) mg/dL Total Bilirubin (0.2-1.3) mg/dL AST (17-59) U/L ALT (0-50) U/L Alkaline Phosphatase (38-126) U/L Serum Total Protein (6.3-8.2) g/dL Albumin (3.5-5.0) g/dL 04/16/24 04/16/24 04/17/24 Range/Units 16:23 20:58 04:22 WBC 6.0 (4.23-9.07) x10^3/uL RBC 3.51 L (4.63-6.08) x10^6/uL Hgb 9.9 L (13.7-17.5) g/dL Hct 31.6 L (40.1-51.0) % MCV 90.0 (79.0-92.2) fL MCH 28.2 (25.7-32.2) pg MCHC 31.3 L (32.3-36.5) g/dL RDW 15.7 H (11.6-14.4) % Plt Count 234 (163-337) x10^3/uL MPV 9.4 (9.4-12.4) fL Gran % 64.0 (34.0-67.9) % Immature Gran % (Auto) 0.7 H (0.001-0.429) % Nucleat RBC Rel Count 0.0 (0.00-0.2) % Eos # (Auto) 0.10 (0.04-0.54) x10^3/uL Immature Gran # (Auto) 0.04 H (0.001-0.031) x10^3u/L Absolute Lymphs (auto) 1.03 L (1.32-3.57) x10^3/uL Absolute Monos (auto) 0.94 H (0.30-0.82) x10^3/uL Absolute Nucleated RBC 0.00 (0.00-0.012) x10^3u/L Lymphocytes % 17.2 L (21.8-53.1) % Monocytes % 15.7 H (5.3-12.2) % Eosinophils % 1.7 (0.8-7.0) % Basophils % 0.7 (0.2-1.2) % Absolute Granulocytes 3.83 (1.78-5.38) x10^3/uL Basophils # 0.04 (0.01-0.08) x10^3/uL Sodium (135-145) mmol/L Potassium (3.5-5.1) mmol/L Chloride (98-107) mmol/L Carbon Dioxide (22-30) mmol/L Anion Gap (5-15) MEQ/L BUN (9-20) mg/dL Creatinine (0.66-1.25) mg/dL Estimated GFR ML/MIN Glucose (74-106) mg/dL POC Glucometer 145 H 143 H (74 to 106) mg/dL Calcium (8.4-10.2) mg/dL Magnesium (1.6-2.3) mg/dL Total Bilirubin (0.2-1.3) mg/dL AST (17-59) U/L ALT (0-50) U/L Alkaline Phosphatase (38-126) U/L Serum Total Protein (6.3-8.2) g/dL Albumin (3.5-5.0) g/dL Multi-Disciplinary Progress Notes: Multi-Disciplinary Progress Notes 04/17/24 01:28 Respiratory Note by Carolin Kilpatrick Pt doesn't want to wear cpap tonight. This RT has checked on pt several times. Pt is sitting up in chair asleep with 2lpm nasal cannula on. SpO2 94%. No respiratory distress noted, will continue to monitor. Initialized on 04/17/24 01:28 - END OF NOTE 04/16/24 12:22 Case Management Note by Columba Giordano S/W PATIENT- HE CONTINUES TO DENY ANY NEW NEEDS AT TIME OF DC. HE PLANS TO RETURN HOME WITH HIS TO ASSIST HIM NEEDED. Initialized on 04/16/24 12:22 - END OF NOTE Assessment/Plan (1) CHF exacerbation Current Visit: Yes Status: Acute Assessment & Plan: -Echo reviewed from February 2024 -BNP 1810 -Lasix 80mg BID started -tele -optimize electrolytes/renal -elevated HOB/daily weights/strict I&O -Supplemental oxygen- at 2L which is baseline with spo2 goal >90% -cxr demonstrates borderline cardiomegaly and mild bibasilar infiltrates/atelectasis/effusions 04/16: -Continue lasix 80mg BID - dyspnea somewhat improved, minimal BLE edema improvement Code(s): I50.9 - HEART FAILURE, UNSPECIFIED (2) Hypomagnesemia Current Visit: Yes Status: Acute Assessment & Plan: -mag at 1.5 on arrival - corrected with 2g 04/16: -Resolved Code(s): E83.42 - HYPOMAGNESEMIA (3) KAILEE (obstructive sleep apnea) Current Visit: Yes Status: Acute Assessment & Plan: -CPAP - pt to bring from home Code(s): G47.33 - OBSTRUCTIVE SLEEP APNEA (ADULT) (PEDIATRIC) (4) Normocytic anemia Current Visit: Yes Status: Acute Assessment & Plan: -hgb near baseline, will add iron studies -received one dose of venofer, will add ferrous sulfate and continue txt as OP Code(s): D64.9 - ANEMIA, UNSPECIFIED (5) COPD (chronic obstructive pulmonary disease) Current Visit: Yes Status: Acute Assessment & Plan: -2L baseline - supplemental prn -RT eval -prn albuterol (6) HTN (hypertension) Current Visit: Yes Status: Acute Assessment & Plan: -continue home meds amlodipine/metoprolol Code(s): I10 - ESSENTIAL (PRIMARY) HYPERTENSION (7) Hypokalemia Current Visit: Yes Status: Acute Assessment & Plan: -labs reviewed with K+ at 3.4, will replenish per protocol 04/16: -Resolved Code(s): E87.6 - HYPOKALEMIA (8) Type 2 diabetes mellitus Current Visit: No Status: Chronic Assessment & Plan: -ADA diet -A1c -Low dose SSI -adjustments as needed CODE STATUS: Full code Prophylaxis: No pharmacologic prophylaxis (Kuldeep over score is only 2. Of note, EMR derived rescore is inaccurate as it believes patient is on oral contraceptives.) Diet: Low-sodium, diabeti Code(s): I50.9 - HEART FAILURE, UNSPECIFIED (2) Hypomagnesemia Current Visit: Yes Status: Acute Code(s): E83.42 - HYPOMAGNESEMIA (3) KAILEE (obstructive sleep apnea) Current Visit: Yes Status: Acute Code(s): G47.33 - OBSTRUCTIVE SLEEP APNEA (ADULT) (PEDIATRIC) (4) Normocytic anemia Current Visit: Yes Status: Acute Code(s): D64.9 - ANEMIA, UNSPECIFIED (5) COPD (chronic obstructive pulmonary disease) Current Visit: Yes Status: Acute (6) HTN (hypertension) Current Visit: Yes Status: Acute Code(s): I10 - ESSENTIAL (PRIMARY) HYPERTENSION (7) Hypokalemia Current Visit: Yes Status: Acute Code(s): E87.6 - HYPOKALEMIA (8) Type 2 diabetes mellitus Current Visit: No Status: Chronic
[2024-04-17 05:16] LABS: BILIRUBIN,TOTAL 0.4 mg/dL (0.2-1.3); Calcium 10.7 mg/dL (8.4-10.2); Creatinine 1 1.14 mg/dL (0.66-1.25); EST GLOMERULAR FILTRATION RATE 63.4 ML/MIN; Potassium 3.8 mmol/L (3.5-5.1); Total Protein 6.7 g/dL (6.3-8.2)
[2024-04-17 05:27] LABS: ANION GAP 14.8 MEQ/L (5-15)
--- NOTE | 2024-04-17 08:53 | XRAY ---
Indication: Pneumonia. Comparison: April 14, 2024 Portable chest improved with now heart within normal limits and diminished vascular congestion. Minimal bibasilar infiltrates/atelectasis/effusions, less than before. No new cardiopulmonary abnormalities.
[2024-04-17] MEDS: Lasix 40 MG/4 ML IV SCH (10:27)
[2024-04-17] MEDS: FEOSOL 325 MG PO SCH (10:36)
--- NOTE | 2024-04-17 10:51 | PCM.DS ---
Discharge Summary Date of Admission: 04/15/24 07:00 Date of Discharge: 04/17/24 Admitting Physician: RUSS VILLEGAS MD Primary Care Provider: SUE COLBERT Allergies Allergies Sulfa (Sulfonamide Antibiotics) Adverse Reaction (Verified 04/14/24 21:45) Hospital Summary - Hospital Course Hospital Course: HPI: 83-year-old man with history of diastolic heart failure, COPD on 2 L oxygen chronically, KAILEE on nocturnal CPAP, and type 2 diabetes, admitted 04/14/24 with CHF exacerbation after experiencing 2 days of dyspnea, increased BLE edema, increased oxygen requirements from his chronic 2 L oxygen to 3 L, associated with orthopnea, requiring him to sleep in a recliner, PND, and early satiety. CXR initially showing borderline cardiomegaly and mild bibasilar infiltrates/atelectasis/effusions. IP treatment with lasix. Repeat cxr demonstrating chest improved with now heart within normal limits and diminished vascular congestion. Patient is at his baseline oxygen of 2L. He is requesting discharge home. Will have him continue home dosing of lasix and follow up with his PCP next week. Patient is agreeable to plan and ready for discharge. Patient also noted with iron deficiency anemia with iron sat at 13%. He did receive Venofer x 1 while IP and started on ferrous sulfate, will have him follow up Dr. Soto (hematology) as OP for further evaluation and continued iron infusions. Discharge Note New Diagnosis: CHF exacerbation New Medications: Ferrous sulfate Follow Up: pcp Latest Assessment & Plan (1) CHF exacerbation Current Visit: Yes Status: Acute Assessment & Plan: -Echo reviewed from February 2024 -BNP 1810 -Lasix 80mg BID started -tele -optimize electrolytes/renal -elevated HOB/daily weights/strict I&O -Supplemental oxygen- at 2L which is baseline with spo2 goal >90% -cxr demonstrates borderline cardiomegaly and mild bibasilar infiltrates/atelectasis/effusions 04/16: -Continue lasix 80mg BID - dyspnea somewhat improved, minimal BLE edema improvement 04/17/24: -Improved CXR today, on baseline oxygen, dyspnea improved. Patient to continue home dosing of lasix Code(s): I50.9 - HEART FAILURE, UNSPECIFIED (2) Hypomagnesemia Current Visit: Yes Status: Acute Assessment & Plan: -mag at 1.5 on arrival - corrected with 2g 04/16: -Resolved Code(s): E83.42 - HYPOMAGNESEMIA (3) KAILEE (obstructive sleep apnea) Current Visit: Yes Status: Acute Assessment & Plan: -CPAP - pt to bring from home Code(s): G47.33 - OBSTRUCTIVE SLEEP APNEA (ADULT) (PEDIATRIC) (4) Normocytic anemia Current Visit: Yes Status: Acute Assessment & Plan: -hgb near baseline, will add iron studies -received one dose of venofer, will add ferrous sulfate and continue txt as OP 04/17: -Follow up OP with hematology with iron sat at 13% [facility] Code(s): D64.9 - ANEMIA, UNSPECIFIED (5) COPD (chronic obstructive pulmonary disease) Current Visit: Yes Status: Acute Assessment & Plan: -2L baseline - supplemental prn -RT eval -prn albuterol (6) HTN (hypertension) Current Visit: Yes Status: Acute Assessment & Plan: -continue home meds amlodipine/metoprolol Code(s): I10 - ESSENTIAL (PRIMARY) HYPERTENSION (7) Hypokalemia Current Visit: Yes Status: Acute Assessment & Plan: -labs reviewed with K+ at 3.4, will replenish per protocol 04/16: -Resolved Code(s): E87.6 - HYPOKALEMIA (8) Type 2 diabetes mellitus Current Visit: No Status: Chronic Assessment & Plan: -ADA diet -A1c -Low dose SSI -adjustments as needed I spent 36 minutes [id number] with the patient on the day of discharge performing discharge exam, discussing hospital stay and discharge instructions with patient and caregivers, preparation of discharge records, prescriptions & referral forms and addressing any questions/concerns the patient had as documented above. - Vitals & Intake/Output Vital Signs: Vital Signs Temperature 97.1 F 04/17/24 06:38 Pulse Rate 71 04/17/24 09:23 Respiratory Rate 12 04/17/24 09:23 Blood Pressure 140/63 04/17/24 06:38 O2 Sat by Pulse Oximetry 99 04/17/24 09:23 Intake & Output: Intake & Output 04/14/24 04/15/24 04/16/24 04/17/24 11:59 11:59 11:59 11:59 Intake Total 240 860 960 Output Total 2300 1600 750 Balance -0 -740 210 Weight 82.4 kg 80.4 kg 79.6 kg - Lab Result Diagrams: 04/17/24 04:22 04/17/24 04:22 Lab Results-Last 24 Hrs: Lab Results-Last 24 Hours 04/16/24 04/16/24 04/16/24 Range/Units 11:48 12:08 16:23 WBC (4.23-9.07) x10^3/uL RBC (4.63-6.08) x10^6/uL Hgb (13.7-17.5) g/dL Hct (40.1-51.0) % MCV (79.0-92.2) fL MCH (25.7-32.2) pg MCHC (32.3-36.5) g/dL RDW (11.6-14.4) % Plt Count (163-337) x10^3/uL MPV (9.4-12.4) fL Gran % (34.0-67.9) % Immature Gran % (Auto) (0.001-0.429) % Nucleat RBC Rel Count (0.00-0.2) % Eos # (Auto) (0.04-0.54) x10^3/uL Immature Gran # (Auto) (0.001-0.031) x10^3u/L Absolute Lymphs (auto) (1.32-3.57) x10^3/uL Absolute Monos (auto) (0.30-0.82) x10^3/uL Absolute Nucleated RBC (0.00-0.012) x10^3u/L Lymphocytes % (21.8-53.1) % Monocytes % (5.3-12.2) % Eosinophils % (0.8-7.0) % Basophils % (0.2-1.2) % Absolute Granulocytes (1.78-5.38) x10^3/uL Basophils # (0.01-0.08) x10^3/uL Sodium (135-145) mmol/L Potassium 3.7 (3.5-5.1) mmol/L Chloride (98-107) mmol/L Carbon Dioxide (22-30) mmol/L Anion Gap (5-15) MEQ/L BUN (9-20) mg/dL Creatinine (0.66-1.25) mg/dL Estimated GFR ML/MIN Glucose (74-106) mg/dL POC Glucometer 120 H 145 H (74 to 106) mg/dL Calcium (8.4-10.2) mg/dL Magnesium (1.6-2.3) mg/dL Total Bilirubin (0.2-1.3) mg/dL AST (17-59) U/L ALT (0-50) U/L Alkaline Phosphatase (38-126) U/L Serum Total Protein (6.3-8.2) g/dL Albumin (3.5-5.0) g/dL 04/16/24 04/17/24 04/17/24 Range/Units 20:58 04:22 04:22 WBC 6.0 (4.23-9.07) x10^3/uL RBC 3.51 L (4.63-6.08) x10^6/uL Hgb 9.9 L (13.7-17.5) g/dL Hct 31.6 L (40.1-51.0) % MCV 90.0 (79.0-92.2) fL MCH 28.2 (25.7-32.2) pg MCHC 31.3 L (32.3-36.5) g/dL RDW 15.7 H (11.6-14.4) % Plt Count 234 (163-337) x10^3/uL MPV 9.4 (9.4-12.4) fL Gran % 64.0 (34.0-67.9) % Immature Gran % (Auto) 0.7 H (0.001-0.429) % Nucleat RBC Rel Count 0.0 (0.00-0.2) % Eos # (Auto) 0.10 (0.04-0.54) x10^3/uL Immature Gran # (Auto) 0.04 H (0.001-0.031) x10^3u/L Absolute Lymphs (auto) 1.03 L (1.32-3.57) x10^3/uL Absolute Monos (auto) 0.94 H (0.30-0.82) x10^3/uL Absolute Nucleated RBC 0.00 (0.00-0.012) x10^3u/L Lymphocytes % 17.2 L (21.8-53.1) % Monocytes % 15.7 H (5.3-12.2) % Eosinophils % 1.7 (0.8-7.0) % Basophils % 0.7 (0.2-1.2) % Absolute Granulocytes 3.83 (1.78-5.38) x10^3/uL Basophils # 0.04 (0.01-0.08) x10^3/uL Sodium 138 (135-145) mmol/L Potassium 3.8 (3.5-5.1) mmol/L Chloride 92 L (98-107) mmol/L Carbon Dioxide 35 H (22-30) mmol/L Anion Gap 14.8 (5-15) MEQ/L BUN 47 H (9-20) mg/dL Creatinine 1.14 (0.66-1.25) mg/dL Estimated GFR 63.4 ML/MIN Glucose 135 H (74-106) mg/dL POC Glucometer 143 H (74 to 106) mg/dL Calcium 10.7 H (8.4-10.2) mg/dL Magnesium (1.6-2.3) mg/dL Total Bilirubin 0.40 (0.2-1.3) mg/dL AST 25 (17-59) U/L ALT 18 (0-50) U/L Alkaline Phosphatase 51 (38-126) U/L Serum Total Protein 6.7 (6.3-8.2) g/dL Albumin 4.0 (3.5-5.0) g/dL 04/17/24 04/17/24 Range/Units 04:22 07:45 WBC (4.23-9.07) x10^3/uL RBC (4.63-6.08) x10^6/uL Hgb (13.7-17.5) g/dL Hct (40.1-51.0) % MCV (79.0-92.2) fL MCH (25.7-32.2) pg MCHC (32.3-36.5) g/dL RDW (11.6-14.4) % Plt Count (163-337) x10^3/uL MPV (9.4-12.4) fL Gran % (34.0-67.9) % Immature Gran % (Auto) (0.001-0.429) % Nucleat RBC Rel Count (0.00-0.2) % Eos # (Auto) (0.04-0.54) x10^3/uL Immature Gran # (Auto) (0.001-0.031) x10^3u/L Absolute Lymphs (auto) (1.32-3.57) x10^3/uL Absolute Monos (auto) (0.30-0.82) x10^3/uL Absolute Nucleated RBC (0.00-0.012) x10^3u/L Lymphocytes % (21.8-53.1) % Monocytes % (5.3-12.2) % Eosinophils % (0.8-7.0) % Basophils % (0.2-1.2) % Absolute Granulocytes (1.78-5.38) x10^3/uL Basophils # (0.01-0.08) x10^3/uL Sodium (135-145) mmol/L Potassium (3.5-5.1) mmol/L Chloride (98-107) mmol/L Carbon Dioxide (22-30) mmol/L Anion Gap (5-15) MEQ/L BUN (9-20) mg/dL Creatinine (0.66-1.25) mg/dL Estimated GFR ML/MIN Glucose (74-106) mg/dL POC Glucometer 126 H (74 to 106) mg/dL Calcium (8.4-10.2) mg/dL Magnesium 2.0 (1.6-2.3) mg/dL Total Bilirubin (0.2-1.3) mg/dL AST (17-59) U/L ALT (0-50) U/L Alkaline Phosphatase (38-126) U/L Serum Total Protein (6.3-8.2) g/dL Albumin (3.5-5.0) g/dL Micro Results-Entire Visit: Accuchecks Date 04/17/24 Date 04/16/24 Date 04/16/24 Time 08:30 Time 21:00 Time 16:26 - Radiology Exams Ordered Rad Exams-Entire Visit: Radiology Procedures Category Date Time Status CHEST 1 VIEW (PORTABLE) Routine Exams 04/17/24 07:14 Completed - Procedures and Test Procedures and Tests throughout Hospitalization: Therapy Orders & Screens 04/14/24 23:37 ST Screen per Nursing Assess ONCE Comment: Protocol Order Physician Instructions: Greater than [address] Admission Screening Reason For Exam: Triggered on Admission Diagnosis: CHF, PNEUMONIA CVA/Dyshpagia/Aphasia: No Cognitive Deficits: No Dehydration/Nutrition Deficit: No Reflux: No Oral-Motor Difficulties: No Pneumonia: Yes Fdc Resident: No Total Points: 5 04/14/24 23:42 Oxygen Nasal Cannula 2 lpm Comment: Diagnosis: CHF, PNEUMONIA 04/14/24 23:44 BiPap/CPAP ROUTINE Comment: Diagnosis: CHF, PNEUMONIA 04/15/24 00:42 Respiratory Therapy Assessment DAILY Comment: Diagnosis: shortness of breath Discharge Exam General Appearance: no apparent distress Neurologic Exam: alert, oriented x 3, cooperative Eye Exam: PERRL Ears, Nose, Throat Exam: normal ENT inspection Neck Exam: normal inspection Respiratory Exam: diminished breath sounds Cardiovascular Exam: regular rate/rhythm, normal heart sounds Gastrointestinal/Abdomen Exam: soft, normal bowel sounds Male Genitalia Exam: deferred Rectal Exam: deferred Extremity Exam: pedal edema, swelling (BLE edema +2) Skin Exam: normal color Final Diagnosis/Problem List - Final Discharge Diagnosis/Problem (1) CHF exacerbation Current Visit: Yes Status: Acute Code(s): I50.9 - HEART FAILURE, UNSPECIFIED (2) Hypomagnesemia Current Visit: Yes Status: Resolved Code(s): E83.42 - HYPOMAGNESEMIA (3) KAILEE (obstructive sleep apnea) Current Visit: Yes Status: Chronic Code(s): G47.33 - OBSTRUCTIVE SLEEP APNEA (ADULT) (PEDIATRIC) (4) Normocytic anemia Current Visit: Yes Status: Chronic Code(s): D64.9 - ANEMIA, UNSPECIFIED (5) COPD (chronic obstructive pulmonary disease) Current Visit: Yes Status: Chronic (6) HTN (hypertension) Current Visit: Yes Status: Chronic Code(s): I10 - ESSENTIAL (PRIMARY) HYPERTENSION (7) Hypokalemia Current Visit: Yes Status: Resolved Code(s): E87.6 - HYPOKALEMIA (8) Type 2 diabetes mellitus Current Visit: No Status: Chronic - Discharge Disposition: Home, Self-Care Condition: Good Prescriptions: New Ferrous Sulfate 325 mg [Feosol 325 mg] 325 mg PO DAILY 30 Days #30 tablet Continue Fenofibrate 160 mg PO DAILY [place]-3 Fatty Acids/Fish Oil [Fish Oil 1,000 mg Softgel] 2 cap PO DAILY Metformin HCl 500 mg [Glucophage 500 MG] 500 mg PO BID Finasteride 5 mg [Proscar 5 MG] 5 mg PO DAILY Potassium Chloride [Klor-Con 8] 8 meq PO DAILY Furosemide [Lasix] 40 mg PO BID Albuterol Sulfate [Proair Hfa] 2 puffs IH Q4HPRN PRN PRN Reason: Shortness Of Breath/Wheezing Metoprolol Succinate 50 mg [Toprol Xl 50 MG] 50 mg PO DAILY Vit A/Vit C/Vit E/Zinc/Copper [Preservision Areds Tablet] 1 tab PO BID Mv-Min/Folic/K1/Lycopen/Lutein [Centrum Silver Men Tablet] 1 each PO DAILY Amlodipine Besylate [Norvasc] 10 mg PO DAILY Acetaminophen 500 mg [Tylenol Extra Strength 500 mg] 500 mg PO BID Instructions: Heart failure Follow up with: SUE COLBERT [Primary Care Provider] - KAY SOTO MD [NON-STAFF PHY W/O PRIVILEGES] -
[2024-04-17 12:22] VITALS: BP 148/64; PULSE 87; RESP 16; TEMP 97.8; O2SAT 93
== END 2024-04-17 13:10 | disposition home or self-care (01) | DRG 293 ==
LOC: ED 18:22 → MED SURG 22:11 → OBSVTOIN 04-15 07:00
PROVIDERS: ADMIT Internal Medicine; ATTEND Internal Medicine
DX: I11.0 Hypertensive heart disease with heart failure (principal); I50.9 Heart failure, unspecified; Z59.19 Other inadequate housing; E83.42 Hypomagnesemia; G47.33 Obstructive sleep apnea (adult) (pediatric); D64.9 Anemia, unspecified; J44.9 Chronic obstructive pulmonary disease, unspecified; E87.6 Hypokalemia; E11.9 Type 2 diabetes mellitus without complications; E78.5 Hyperlipidemia, unspecified; Z79.899 Other long term (current) drug therapy; Z99.81 Dependence on supplemental oxygen
CPT/HCPCS: 0241U; 36000; 36415; 71045; 80048; 80053; 82607; 82728; 82746; 82947; 83540; 83550; 83605; 83735; 83880; 84132; 85025; 85027; 85379; 85610; 93005; 93268; 94660; 94760; 94762; 96365; 96374; 99284; G0378; Q3014; J0696; J1756; J1940; A9270-GY; J3475

== ENCOUNTER 2024-05-30 17:22 | Emergency (ER) | payer MEDICARE, OTHER ==
[2024-05-30] MEDS ORDERED: EPINEPHRINE ABBOJECT 1 MG/10 ML IV ONE (17:23)
--- NOTE | 2024-05-30 17:41 | ERPHSYRPT ---
- History of Present Illness Time Seen by Provider: 05/30/24 17:26 Source: patient, family () Exam Limitations: no limitations Physician History: For the past week pt has had a non-productive cough; for the past 2 hours dyspnea; chest pain, abdominal pain, fever, vomiting all denied. Allergies/Adverse Reactions: Sulfa (Sulfonamide Antibiotics) Adverse Reaction (Verified 05/30/24 17:40) Home Medications: Fenofibrate 160 mg PO DAILY 12/01/16 [History] Finasteride 5 mg [Proscar 5 MG] 5 mg PO DAILY 12/01/16 [History] Metformin HCl 500 mg [Glucophage 500 MG] 500 mg PO BID 12/01/16 [History] [place]-3 Fatty Acids/Fish Oil [Fish Oil 1,000 mg Softgel] 1 cap PO BID 12/01/16 [History] Albuterol Sulfate [Proair Hfa] 2 puffs IH Q4HPRN PRN 12/27/17 [History] Furosemide [Lasix] 20 mg PO DAILY 12/27/17 [History] Potassium Chloride [Klor-Con 8] 8 meq PO DAILY 12/27/17 [History] Amlodipine Besylate [Norvasc] 10 mg PO DAILY 04/14/24 [History] Mv-Min/Folic/K1/Lycopen/Lutein [Centrum Silver Men Tablet] 1 each PO DAILY 04/14/24 [History] Naproxen Sodium 1 tab PO [id number] PRN 05/30/24 [History] Hx Tetanus, Diphtheria Vaccination/Date Given: No Hx Influenza Vaccination/Date Given: Yes Hx Pneumococcal Vaccination/Date Given: Yes Travel Risk - Emerging Infectious Disease Are you exhibiting symptoms associated with any current EIDs: Yes Symptoms: Shortness of Breath - Review of Systems Constitutional: No Fever Respiratory: Cough, Dyspnea Cardiac: No Chest Pain Abdominal/Gastrointestinal: No Abdominal Pain, No Vomiting - Past Medical History Pertinent Past Medical History: Yes Neurological History: No Pertinent History ENT History: Cataracts, Glaucoma Cardiac History: High Cholesterol, Hypertension Respiratory History: Sleep Apnea Endocrine Medical History: Diabetes Type II Musculoskeletal History: Arthritis GI Medical History: No Pertinent History History: Other Psycho-Social History: No Pertinent History Male Reproductive Disorders: Prostate Problems Other Medical History: hx of kidney stones, mass on right shoulder - Past Surgical History Past Surgical History: Yes Neuro Surgical History: No Pertinent History Cardiac: No Pertinent History Respiratory: No Pertinent History Gastrointestinal: Cholecystectomy, Hemorrhoidectomy, Hernia Repair Genitourinary: No Pertinent History Musculoskeletal: Other Male Surgical History: Prostate Surgery Other Surgical History: tumors removed from back, cataract/lens left eye january 2017 Significant Family History: no pertinent family hx - Social History Smoking Status: Former smoker How long have you smoked: 20 years Exposure to second hand smoke: No Drug Use: none Patient Lives Alone: No - Social Determinants of Health Do you worry about a steady place to live?: No - Nursing Vital Signs Nursing Vital Signs: Initial Vital Signs Temperature 97.9 F 05/30/24 17:30 Pulse Rate 85 05/30/24 17:30 Respiratory Rate 26 H 05/30/24 17:30 Blood Pressure 124/55 05/30/24 17:30 O2 Sat by Pulse Oximetry 96 05/30/24 17:30 Pain Scale Pain Intensity 6 - Physical Exam General Appearance: alert Eye Exam: other (decreased vision(ongoing)) Ears, Nose, Throat Exam: hearing grossly normal, No pharyngeal erythema Neck Exam: normal inspection Respiratory Exam: crackles/rales (right posterior base) Cardiovascular/Chest Exam: murmur (2/6 systolic murmur) Abdominal/Gastrointestinal Exam: normal bowel sounds Neurologic Exam: alert, cooperative Skin Exam: warm, dry, pale SpO2 Interpretation: O2 applied SpO2: 96 O2 Delivery: Nasal Cannula - Course EKG Interpreted by Me: RATE (83), Sinus Rhythm, NORMAL AXIS, Other (QTc = 418) - Radiology Exams Chest X-ray Interpretation: Discussed w/ radiologist (See report.) Ordered Tests: Active Orders 24 hr Category Date Time Status EKG-ER Only STAT Care 05/30/24 17:44 Active Oxygen-ED Only Nasal Cannula 2 lpm Care 05/30/24 17:38 Active Pulse Oximetry (ED) STAT Care 05/30/24 17:38 Active CHEST 2 VIEWS (PA AND LAT) Stat Exams 05/30/24 17:37 Completed AMYLASE Stat Lab 05/30/24 18:05 Completed CBC W DIFF Stat Lab 05/30/24 18:05 Completed CMP Stat Lab 05/30/24 18:05 Completed LIPASE Stat Lab 05/30/24 18:05 Completed MAGNESIUM Stat Lab 05/30/24 18:05 Completed NT PRO BNPII Stat Lab 05/30/24 18:05 Completed TROPONIN Q4H Lab 05/30/24 18:05 Completed TROPONIN Q4H Lab 05/30/24 21:45 Ordered TROPONIN Q4H Lab 05/31/24 01:45 Ordered UA W/RFX UR CULTURE Stat Lab 05/30/24 19:29 Completed Medication Summary Generic Name Dose Route Start Last Admin Trade Name Michaelq PRN Reason Stop Dose Admin Sodium Chloride 1,000 mls @ 100 mls/hr 05/30/24 17:45 05/30/24 17:50 Sodium Chloride 0.9% 1000 Ml IV 06/29/24 17:44 100 mls/hr .Q10H LIS Administration Lab/Rad Data: Laboratory Result Diagrams 05/30/24 18:05 05/30/24 18:05 Laboratory Results 05/30/24 05/30/24 05/30/24 Range/Units 19:29 18:05 18:05 WBC (4.23-9.07) x10^3/uL RBC (4.63-6.08) x10^6/uL Hgb (13.7-17.5) g/dL Hct (40.1-51.0) % MCV (79.0-92.2) fL MCH (25.7-32.2) pg MCHC (32.3-36.5) g/dL RDW (11.6-14.4) % Plt Count (163-337) x10^3/uL MPV (9.4-12.4) fL Gran % (34.0-67.9) % Immature Gran % (Auto) (0.001-0.429) % Nucleat RBC Rel Count (0.00-0.2) % Eos # (Auto) (0.04-0.54) x10^3/uL Immature Gran # (Auto) (0.001-0.031) x10^3u/L Absolute Lymphs (auto) (1.32-3.57) x10^3/uL Absolute Monos (auto) (0.30-0.82) x10^3/uL Absolute Nucleated RBC (0.00-0.012) x10^3u/L Lymphocytes % (21.8-53.1) % Monocytes % (5.3-12.2) % Eosinophils % (0.8-7.0) % Basophils % (0.2-1.2) % Absolute Granulocytes (1.78-5.38) x10^3/uL Basophils # (0.01-0.08) x10^3/uL Sodium 136 (135-145) mmol/L Potassium 5.4 H (3.5-5.1) mmol/L Chloride 95 L (98-107) mmol/L Carbon Dioxide 34 H (22-30) mmol/L Anion Gap 12.2 (5-15) MEQ/L BUN 48 H (9-20) mg/dL Creatinine 1.30 H (0.66-1.25) mg/dL Estimated GFR 54.2 ML/MIN Glucose 159 H (74-106) mg/dL Calcium 10.6 H (8.4-10.2) mg/dL Magnesium 2.1 (1.6-2.3) mg/dL Total Bilirubin 0.40 (0.2-1.3) mg/dL AST 29 (17-59) U/L ALT 25 (0-50) U/L Alkaline Phosphatase 67 (38-126) U/L Troponin I 0.025 (0.000-0.033) ng/mL NT-Pro-B Natriuret Pep 3800 (<300) pg/mL Serum Total Protein 6.7 (6.3-8.2) g/dL Albumin 3.7 (3.5-5.0) g/dL Amylase 85 (30-110) U/L Lipase 108 (23-300) U/L Urine Color Yellow (Yellow) Urine Appearance Clear (Clear) Urine pH 5.5 (4.6-8.0) Ur Specific [place] 1.015 (1.005-1.030) Urine Protein Trace A (Negative) Urine Glucose (UA) Negative (Negative) mg/dL Urine Ketones Negative (Negative) Urine Blood Negative (Negative) Urine Nitrite Negative (Negative) Urine Bilirubin Negative (Negative) Urine Urobilinogen 1.0 A (0.2) mg/dL Ur Leukocyte Esterase Negative (Negative) U Hyaline Cast (Auto) 3-5 A (0-2) /LPF Urine Microscopic RBC 0-2 (0-5) /HPF Urine Microscopic WBC 3-5 (0-5) /HPF Ur Epithelial Cells None Seen (None Seen) /HPF Urine Bacteria None Seen (None Seen) /HPF Urine Culture Reflexed NO (NO) 05/30/24 Range/Units 18:05 WBC 6.2 (4.23-9.07) x10^3/uL RBC 2.88 L (4.63-6.08) x10^6/uL Hgb 8.2 L (13.7-17.5) g/dL Hct 26.5 L (40.1-51.0) % MCV 92.0 (79.0-92.2) fL MCH 28.5 (25.7-32.2) pg MCHC 30.9 L (32.3-36.5) g/dL RDW 14.2 (11.6-14.4) % Plt Count 235 (163-337) x10^3/uL MPV 8.7 L (9.4-12.4) fL Gran % 71.7 H (34.0-67.9) % Immature Gran % (Auto) 0.6 H (0.001-0.429) % Nucleat RBC Rel Count 0.0 (0.00-0.2) % Eos # (Auto) 0.32 (0.04-0.54) x10^3/uL Immature Gran # (Auto) 0.04 H (0.001-0.031) x10^3u/L Absolute Lymphs (auto) 0.55 L (1.32-3.57) x10^3/uL Absolute Monos (auto) 0.79 (0.30-0.82) x10^3/uL Absolute Nucleated RBC 0.00 (0.00-0.012) x10^3u/L Lymphocytes % 8.9 L (21.8-53.1) % Monocytes % 12.8 H (5.3-12.2) % Eosinophils % 5.2 (0.8-7.0) % Basophils % 0.8 (0.2-1.2) % Absolute Granulocytes 4.43 (1.78-5.38) x10^3/uL Basophils # 0.05 (0.01-0.08) x10^3/uL Sodium (135-145) mmol/L Potassium (3.5-5.1) mmol/L Chloride (98-107) mmol/L Carbon Dioxide (22-30) mmol/L Anion Gap (5-15) MEQ/L BUN (9-20) mg/dL Creatinine (0.66-1.25) mg/dL Estimated GFR ML/MIN Glucose (74-106) mg/dL Calcium (8.4-10.2) mg/dL Magnesium (1.6-2.3) mg/dL Total Bilirubin (0.2-1.3) mg/dL AST (17-59) U/L ALT (0-50) U/L Alkaline Phosphatase (38-126) U/L Troponin I (0.000-0.033) ng/mL NT-Pro-B Natriuret Pep (<300) pg/mL Serum Total Protein (6.3-8.2) g/dL Albumin (3.5-5.0) g/dL Amylase (30-110) U/L Lipase (23-300) U/L Urine Color (Yellow) Urine Appearance (Clear) Urine pH (4.6-8.0) Ur Specific [place] (1.005-1.030) Urine Protein (Negative) Urine Glucose (UA) (Negative) mg/dL Urine Ketones (Negative) Urine Blood (Negative) Urine Nitrite (Negative) Urine Bilirubin (Negative) Urine Urobilinogen (0.2) mg/dL Ur Leukocyte Esterase (Negative) U Hyaline Cast (Auto) (0-2) /LPF Urine Microscopic RBC (0-5) /HPF Urine Microscopic WBC (0-5) /HPF Ur Epithelial Cells (None Seen) /HPF Urine Bacteria (None Seen) /HPF Urine Culture Reflexed (NO) - Progress Progress: unchanged Discussed with : Brandon (Spoke with & discussed pt with Dr. Richards([id number]) - order chest CT on the way to the floor and no antibiotics until CT chest results are resulted and relayed to Dr. Richards.) Will see patient in: hospital (observation) Counseled pt/family regarding: lab results, diagnosis, rad results Medical Desision Making - Diagnostic Testing Diagnostic test were ordered, analyzed, and reviewed by me: Yes Radiological Interpretation: Discussed w/ radiologist - Departure Departure Disposition: Observation Clinical Impression: Dyspnea, Anemia, Diabetes Condition: Stable Critical Care Time: No Referrals: SUE COLBERT [Primary Care Provider] - Follow up/PCP as directed
[2024-05-30] MEDS ORDERED: Sodium Chloride 0.9% 1000 ML 1,000 ML ONE (17:48)
[2024-05-30] MEDS: Sodium Chloride 0.9% 1000 ML 1,000 ML IV SCH (17:50)
[2024-05-30 18:10] LABS: Absolute Neutrophil Ct (ANC) 4.43 x10^3/uL (1.78-5.38); BASOPHIL % 0.8 % (0.2-1.2); Basophil (Absolute #) 0.05 x10^3/uL (0.01-0.08); Eosinophil % 5.2 % (0.8-7.0); Eosinophil (Absolute #) 0.32 x10^3/uL (0.04-0.54); Hematocrit 26.5 % (40.1-51.0); Hemoglobin 8.2 g/dL (13.7-17.5); IMMATURE GRAN # 0.04 x10^3u/L (0.001-0.031); IMMATURE GRAN % 0.6 % (0.001-0.429); Lymphocyte (Absolute #) 0.55 x10^3/uL (1.32-3.57); Lymphocytes % 8.9 % (21.8-53.1); Mean Corpuscular Hemoglobin 28.5 pg (25.7-32.2); Mean Corpuscular Hgb Concent. 30.9 g/dL (32.3-36.5); Mean Platelet Volume 8.7 fL (9.4-12.4); Monocyte (Absolute #) 0.79 x10^3/uL (0.30-0.82); Monocytes % 12.8 % (5.3-12.2); Neutrophil % 71.7 % (34.0-67.9); Platelet Count 235 x10^3/uL (163-337); Red Blood Count 2.88 x10^6/uL (4.63-6.08); Red Cell Distribution Width 14.2 % (11.6-14.4); White Blood Count 6.2 x10^3/uL (4.23-9.07)
[2024-05-30 18:37] LABS: ALBUMIN 3.7 g/dL (3.5-5.0); ANION GAP 12.2 MEQ/L (5-15); BILIRUBIN,TOTAL 0.4 mg/dL (0.2-1.3); Calcium 10.6 mg/dL (8.4-10.2); Creatinine 1 1.3 mg/dL (0.66-1.25); EST GLOMERULAR FILTRATION RATE 54.2 ML/MIN; MAGNESIUM 2.1 mg/dL (1.6-2.3); Potassium 5.4 mmol/L (3.5-5.1); Total Protein 6.7 g/dL (6.3-8.2)
--- NOTE | 2024-05-30 19:30 | XRAY ---
Indication: Dyspnea. Comparison: April AP/lateral chest demonstrates worsening moderate left base and stable tiny right base infiltrates/atelectasis/effusions. Remaining heart and upper lungs unremarkable. Bony thorax intact again with osteopenia and degenerative changes.
[2024-05-30 19:51] LABS: Appearance Clear (Clear); Bacteria None Seen /HPF (None Seen); Bilirubin Negative (Negative); Blood Negative (Negative); Epithelial Cells None Seen /HPF (None Seen); Glucose, Urine Negative (Negative); Ketones Negative (Negative); Leukocyte Esterase Negative (Negative); Nitrite Negative (Negative); Ph 5.5 (4.6-8.0); Protein,Urine Dip Trace (Negative); RBC 0-2 /HPF (0-5); Specific Gravity 1.015 (1.005-1.030)
[2024-05-30 22:29] LABS: Slide Review 1 YES
[2024-05-31 00:25] LABS: A-aADO2 507; ABG HEMOGLOBIN 9.1; ARTERIAL BLD GAS O2 SATURATION 80.5 % (95-100); ARTERIAL BLOOD GAS BASE EXCESS -7.4 (-2.0-2.0); ARTERIAL BLOOD GAS FIO2 100 %; ARTERIAL BLOOD GAS PCO2 113 mmHg (35-45); ARTERIAL BLOOD GAS PO2 65 mmHg (75-100); CARBOXYHEMOGLOBIN 1.5 % THgb (0.0-6.9); HCO3- 25.4 (22-28); HGB O2 SAT 79.1 g/dF (94-100); Methhemoglobin 0.2 % (1.4-1.5); paO2 pAO1 0.11
[2024-05-31 00:26] LABS: ABG SITE RIGHT RADIAL; ARTERIAL BLOOD GAS pH 6.96 (7.35-7.45)
[2024-05-31 00:30] LABS: Absolute Neutrophil Ct (ANC) 10.96 x10^3/uL (1.78-5.38); BASOPHIL % 0.6 % (0.2-1.2); Basophil (Absolute #) 0.11 x10^3/uL (0.01-0.08); Eosinophil % 1.5 % (0.8-7.0); Eosinophil (Absolute #) 0.27 x10^3/uL (0.04-0.54); Hematocrit 29.2 % (40.1-51.0); Hemoglobin 8.7 g/dL (13.7-17.5); IMMATURE GRAN % 2.8 % (0.001-0.429); Lymphocyte (Absolute #) 4.36 x10^3/uL (1.32-3.57); Lymphocytes % 24.7 % (21.8-53.1); Mean Cell Volume 96.1 fL (79.0-92.2); Mean Corpuscular Hemoglobin 28.6 pg (25.7-32.2); Mean Corpuscular Hgb Concent. 29.8 g/dL (32.3-36.5); Mean Platelet Volume 9.4 fL (9.4-12.4); Monocyte (Absolute #) 1.43 x10^3/uL (0.30-0.82); Monocytes % 8.1 % (5.3-12.2); NUCLEATED RBC # 0.07 x10^3u/L (0.00-0.012); NUCLEATED RBC % 0.4 % (0.00-0.2); Neutrophil % 62.3 % (34.0-67.9); Platelet Count 374 x10^3/uL (163-337); Red Blood Count 3.04 x10^6/uL (4.63-6.08); White Blood Count 17.6 x10^3/uL (4.23-9.07)
[2024-05-31 00:35] LABS: ANION GAP 19.1 MEQ/L (5-15); Calcium 10.3 mg/dL (8.4-10.2); Creatinine 1 1.18 mg/dL (0.66-1.25); EST GLOMERULAR FILTRATION RATE 60.9 ML/MIN; MAGNESIUM 2.3 mg/dL (1.6-2.3); Potassium 4.8 mmol/L (3.5-5.1)
[2024-05-31] MEDS ORDERED: CALCIUM CHLORIDE 10% 1000 MG ONE (01:00)
[2024-05-31] MEDS ORDERED: Lasix 40 MG/4 ML ONE (01:01)
[2024-05-31] MEDS ORDERED: HUMULIN R ONE (01:01)
[2024-05-31] MEDS ORDERED: D50W 50 ml Abboject IV ONE (01:02)
[2024-05-31] MEDS ORDERED: Sodium Chloride 0.9% 100 ML ONE (01:02)
[2024-05-31] MEDS ORDERED: Sodium Bicarbonate 50 MEQ/50 ML VIAL ONE (01:02)
[2024-05-31] MEDS: HUMULIN R IV ONE (01:06)
[2024-05-31] MEDS: Lasix 40 MG/4 ML IV ONE (01:06)
[2024-05-31] MEDS: D50W 50 ml Abboject IV ONE (01:08)
[2024-05-31] MEDS: CALCIUM CHLORIDE 10% 1000 MG 1,000 MG in Sodium Chloride 0.9% 100 ML IV ONE (01:11)
[2024-05-31] MEDS ORDERED: SODIUM BICARBONATE 50 MEQ/50 ML ABBOJECT IV ONE (01:16)
[2024-05-31] MEDS: SODIUM BICARBONATE 50 MEQ/50 ML ABBOJECT IV ONE (01:16)
[2024-05-31] MEDS ORDERED: Zofran 4 MG/2 ML VIAL ONE (01:22)
[2024-05-31] MEDS ORDERED: MORPHINE SULFATE 4 MG INJ ONE (01:22)
[2024-05-31] MEDS ORDERED: VERSED 5 MG/5 ML ONE (01:22)
[2024-05-31] MEDS: Zofran 4 MG/2 ML VIAL IV ONE (01:23)
[2024-05-31] MEDS: MORPHINE SULFATE 4 MG INJ IV ONE (01:24)
[2024-05-31] MEDS: Versed 2 MG/2 ML Injection IV ONE (01:27)
[2024-05-31 01:36] LABS: A-aADO2 524; ABG HEMOGLOBIN 8.3; ABG POTASSIUM 4.6 (3.5-5.1); ARTERIAL BLD GAS O2 SATURATION 99.1 % (95-100); ARTERIAL BLD GAS TIDAL VOLUME 550 cc; ARTERIAL BLOOD GAS BASE EXCESS 3.1 (-2.0-2.0); ARTERIAL BLOOD GAS FIO2 100 %; ARTERIAL BLOOD GAS PCO2 47 mmHg (35-45); ARTERIAL BLOOD GAS PO2 130 mmHg (75-100); ARTERIAL BLOOD GAS VENT MODE VC/AC; ARTERIAL BLOOD GAS VENT RATE 20 /MIN; ARTERIAL BLOOD GAS pH 7.39 (7.35-7.45); CARBOXYHEMOGLOBIN 1.1 % THgb (0.0-6.9); HCO3- 28.5 (22-28); HGB O2 SAT 96.6 g/dF (94-100); Methhemoglobin 1.3 % (1.4-1.5)
[2024-05-31 01:37] LABS: ABG SITE RIGHT RADIAL; ARTERIAL BLOOD GAS PEEP 5 cmH2O
[2024-05-31] MEDS ORDERED: Sodium Chloride 0.9% 1000 ML 1,000 ML ONE (02:21)
[2024-05-31] MEDS: Sodium Chloride 0.9% 1000 ML 1,000 ML IV SCH (02:22)
[2024-05-31] MEDS ORDERED: Versed 50 MG/ 10 Ml MDV ONE (02:24)
[2024-05-31] MEDS: Versed 50 MG/ 10 Ml MDV*** 50 MG in Sodium Chloride 0.9% 250 ML 240 ML IV PRN (02:24)
[2024-05-31] MEDS ORDERED: Sodium Chloride 0.9% 250 ML 250 ML IV ONE (02:24)
[2024-05-31 02:53] LABS: Appearance Turbid (Clear); Bacteria Many /HPF (None Seen); Bilirubin Small (Negative); Blood Large (Negative); Epithelial Cells Few /HPF (None Seen); Glucose, Urine Negative (Negative); Hyaline Casts >50 /LPF (0-2); Ketones Negative (Negative); Leukocyte Esterase Moderate (Negative); Nitrite Negative (Negative); Protein,Urine Dip 300 (Negative); RBC >100 /HPF (0-5); WBC >100 /HPF (0-5)
[2024-05-31 03:18] VITALS: O2SAT 100
[2024-05-31] MEDS ORDERED: ROCEPHIN 1 GM / 100 ML NaCl 1 GM/100 ML IVPB IV ONE (03:21)
[2024-05-31] MEDS: ROCEPHIN 1 GM / 100 ML NaCl 1 GM/100 ML IVPB IV ONE (03:22)
[2024-05-31 04:59] VITALS: RESP 15
[2024-05-31 05:21] VITALS: BP 103/47; PULSE 79; TEMP 96.1
--- NOTE | 2024-05-31 05:44 | XRAY ---
Indication: Endotracheal tube placement. Comparison: May 30, 2024 Portable chest demonstrates new endotracheal tube tip approximately 5 mm above cristian. New NG tube traverses chest with tip in stomach. New diffuse bilateral groundglass airspace disease. Stable moderate left base and small right base effusions/atelectasis. Heart not enlarged for AP portable technique.
== END 2024-05-31 05:20 | disposition short-term general hospital (02) ==
LOC: ED 17:22
DX: R05.9 Cough, unspecified (principal); D64.9 Anemia, unspecified; E11.9 Type 2 diabetes mellitus without complications; E78.5 Hyperlipidemia, unspecified; I10 Essential (primary) hypertension; E87.5 Hyperkalemia; R09.2 Respiratory arrest; Z79.899 Other long term (current) drug therapy
CPT/HCPCS: 31500; 36000; 36415; 36600; 51702; 71045; 71046; 80048; 80053; 81001; 82150; 82375; 82803; 82947; 83690; 83735; 83880; 84484; 85025; 87086; 92950; 93005; 93041; 94002; 94760; 96365; 96366; 96367; 96374; 96375; 99285; J0171; J0696; J1815; J1940; J2250; J2270; J2405